=== PATIENT | female | born 1940 | race Caucasian/White ===

== ENCOUNTER 2016-11-16 17:48 | Emergency (ER) | payer OTHER ==
[~2016-11-16 17:48] MED LIST: ACETAMINOPHEN500 MG PO; ALDACTONE25 MG PO; AMITIZA8 MCG PO; CARAFATE EQUIVAL1 GM PO; CEPHALEXIN500 MG PO; COMBIVENT RESPIMAT; COUMADIN5 MG PO; DIGOXIN0.125 MG PO; FLOMAX0.4 MG PO; GLIMEPIRIDE1 MG PO; GLIMEPIRIDE4 MG PO; LIDODERM5 % TOP; LIPITOR80 MG PO; LISINOPRIL10 MG PO; LOPRESSOR50 MG PO; LOSARTAN POTASS50 MG PO; LOVENOX60 MG/0.6 SC; LOVENOX80 MG/0.8 SC; METFORMIN HCL500 MG PO; METHYLPHENIDATE5 MG PO; METOCLOPRAMIDE10 MG PO; MIRALAX EQUIVAL17 GM PO; NEURONTIN300 MG PO; OMEPRAZOLE20 M1 PO; OXYCONTIN CR10 MG PO; PAROXETINE HCL10 MG PO; REQUIP0.25 MG PO; SEREVENT DISKU50 MCG; SMZ-TMP DS1 TAB PO; TORSEMIDE10 MG PO; TRAMADOL HCL50 MG PO; TRAZODONE HCL100 MG PO; TRAZODONE HCL50 MG PO; TYLENOL650 MG PO; WARFARIN SODIUM5 MG PO
--- NOTE | 2016-11-16 20:08 | ED ORDER SUMMARY ---
..... Patient: TRAVON VIDAL OrderSheet [facility] VisitID: [id number] [address] [place] [address] 76y, F Registration Date/Time: 11/16/2016 ORDER SHEET Weight: 102.0 kg (stated) Allergies: Doxycycline, Cordran, Amiodarone, Cordarone, GENERAL ORDERS: CBC w Diff Urgent (18:24 11/16/2016 Mary GUERRERO) (Ack 18:36 Vaelncia) (19:02 KPage-Kuchan R.N.) CMP Urgent (18:11/16/2016 Mary GUERRERO) (Ack 18:36 Valencia) (19:02 KPage-Kujuan cn R.N.) UA-Culture if indicated Urgent (18:11/16/2016 Mary GUERRERO) (Ack 18:36 Valencia) (19:02 KPage-Kuchan R.N.) Amylase Urgent (18:11/16/2016 Mary GUERRERO) (Ack 18:36 Valencia) (19:02 KPage-Kuchan R.N.) Lipase Urgent (18:24 11/16/2016 Mary GUERRERO) (Ack 18:36 Valencia) (19:02 KPage-Kuchan R.N.) PT with INR Urgent (20:07 11/16/2016 Mary GUERRERO) (20:09 AMcQuoid ER Tech1) PTT Urgent (20:07 11/16/2016 Mary GUERRERO) (20:09 AMcQuoid ER Tech1) Ly Catheter (20:07 11/16/2016 Mary GUERRERO) (20:15 SRoberts R.N.) MEDICATION ORDERS: Levaquin PO 500 mg (NOW) (20:45 11/16/2016 Mary GUERRERO) (Ack 20:56 SRoberts R.N.) (21:30 SRoberts R.N.) IV FLUIDS: IV Saline Lock (18:24 11/16/2016 Mary GUERRERO) (19:03 KPage-Zaidn R.N.) Dilaudid IV 0.5 mg (HIGH ALERT MEDICATION, NOW) (20:06 11/16/2016 Mary GUERRERO) ([facility] 20:08 Catherine RDionisio) (20:15 Catherine Sainz) ORDER SHEET NOTES: [Electronically signed by Darline Prado R.N. (:31 11/16/2016)] [Electronically signed by Jose Penny MD (09:46 11/17/2016)] [Electronically locked/signed by Darline Prado R.N. (:11/16/2016)]
--- NOTE | 2016-11-16 20:08 | ED CLINICAL REPORT ---
Clinical Report - Physicians/Mid Levels [facility] [address] [place] [address] 11/16/2016 17:48 Patient: TRAVON VIDAL Time Seen: 18:24. Arrived- By private vehicle. Historian- patient. HISTORY OF PRESENT ILLNESS Chief Complaint: ABDOMINAL PAIN. At its maximum, severity described as 9 / 10. When seen in the E.D., severity described as 6 / 10. Modifying factors- (worsened by standing). This started for about 10 days and is still present and now worse. It was gradual in onset and has been intermittent and waxing/waning. It is described as cramping. No radiation. It is described as located in the suprapubic area. No nausea or vomiting. She has had loose stools (for about 10 days). It has been similar to previous symptoms. No bloody or blood-tinged diarrhea. REVIEW OF SYSTEMS No chills, fever, muscle aches, sweats or calf pain. No chest pain, cough, difficulty breathing, pedal edema or palpitations. No black stools, bloody stools, constipation, diarrhea or nausea. No vomiting. All systems otherwise negative, except as recorded above. PAST HISTORY PCP - Herb. Problems: Dehydration. Hyponatremia. Leukocytosis. Oral Anticoagulation Therapy. Chest Pain. Abnormal EKG. COPD - Chronic Obstructive Pulmonary Disease. Lung Disease. Heart Disease. GI Disease. Nephropathy. Cystitis. Ly Catheter Replacement. Fecal Impaction. Vomiting. Hypomagnesemia. Constipation. Hyperkalemia. Hematuria. Emphysema. Cancer. Abdominal Pain. UTI - Urinary Tract Infection. Atrial Fibrillation. Sleep Apnea. Diabetes Mellitus. Hypertension. Urinary Retention. Aortic Stenosis. Additional Surgeries: Aortofemoral Bypass. Appendectomy. Bladder Suspension. Previous Abdominal Surgery. Valve Replacement. Medications: Lipitor Oral (Tablet 80 mg) 1 tablet, daily. Losartan Potassium Oral (Tablet 100 mg) 1/2 tablet, 2x a day. Lovenox Subcutaneous (Solution 80 mg/0.8mL), 2x a day. MetFORMIN HCl Oral (Tablet 1000 mg) 1 tablet, 2x a day. Methylphenidate HCl ER (LA) Oral (Capsule Extended Release 24 Hour 10 mg) 1 capsule, daily. Metoprolol Tartrate Oral (Tablet 50 mg) 1/2 tablet, bid. MiraLax Oral 1 packet, daily. Omeprazole Oral (Tablet Delayed Release 20 mg) 1 tablet, 2x a day. PARoxetine HCl Oral (Tablet 20 mg) 1 tablet, daily. Requip Oral (Tablet 0.25 mg) 1-2 tablets, hs. Serevent Diskus Inhalation 1 puff, 2x a day. Spironolactone Oral (Tablet 25 mg) 1 tablet, daily. Torsemide Oral (Tablet 5 mg) 1 tablet, daily. Tramadol HCL Oral (Tablet 50 mg) 1-1/2 tablets, 3x a day. TraZODone HCl Oral (Tablet 150 mg) 1/2 tablet, at bedtime. Tylenol Arthritis Pain Oral (Tablet Extended Release 650 mg) 3 tablets , bid. Warfarin Sodium Oral (Tablet 1 mg) 4 tablets (4 mg 2 days a week 5 mg 5 days a week). Amitiza Oral (Capsule 8 mcg) 1 capsule, bid. [id number] Oral (Tablet Chewable 1 mg) 1/2 tablet, daily. Combivent Respimat Inhalation (Aerosol Solution 20-100 mcg/act) 1 puff, bid. Digoxin Oral (Tablet 125 mcg) 1 tablet, daily. Flomax Oral (Capsule 0.4 mg) 1 capsule, daily. Fluconazole Oral (Tablet 150 mg) 1 tablet, daily. Glimepiride Oral (Tablet 4 mg) 1/2 tablet, daily. Allergies: Amiodarone. Cordarone. Cordran. Doxycycline. SOCIAL HISTORY Former smoker, end date 1990. No alcohol use or drug use. Residence: [place] she lives with spouse. FAMILY HISTORY Heart disease in first-degree relative (mother and sibling). father with Parkinson's. ADDITIONAL NOTES The nursing notes have been reviewed. PHYSICAL EXAM Vital Signs: 11/16/2016 18:22 BP: 107/66. HR: 71. RR: 24. O2 saturation: 92%. Temp: 99.1 F. Pain level now: 6/10. Have been reviewed. Appearance: Alert. Eyes: Pupils equal, round and reactive to light. ENT: Pharynx normal. Neck: Normal inspection. Neck supple. CVS: Normal heart rate and rhythm. Heart sounds normal. Respiratory: No respiratory distress. Breath sounds normal. Abdomen: Soft. Moderate tenderness in the suprapubic area. Bowel sounds normal. No organomegaly. No mass. Back: Normal inspection. No CVA tenderness. Skin: Skin warm and dry. Normal skin color. Normal skin turgor. Extremities: Extremities exhibit normal ROM. No calf tenderness. No lower extremity edema. LABS, X-RAYS, AND EKG Laboratory Tests: UA-Culture if indicated: (ADDI: 11/16/2016 19:45) ( [facility] 11/16/2016 20:05) Final results Test Result Flag Units (Reference) URINE COLOR YELLOW URINE APPEARANCE CLOUDY URINE GLUCOSE NEGATIVE (NEGATIVE) URINE BILIRUBIN NEGATIVE (NEGATIVE) URINE KETONE NEGATIVE (NEGATIVE) URINE SPECIFIC GRAVITY 1.020 (1.010-1.030) URINE PH 6.0 (5.0-8.0) URINE PROTEIN 2+ (NEGATIVE) URINE UROBILINOGEN 1.0 EU/dL (0.2-1.0) URINE NITRITE POSITIVE (NEGATIVE) URINE BLOOD 2+ (NEGATIVE) URINE LEUK ESTERASE POSITIVE (NEGATIVE) URINE RBC 1-3 rbc/hpf (0-1) URINE WBC >100 wbc/hpf (0-1) URINE EPITHELIAL CELLS 0-1 EPI/hpf (0-5) URINE BACTERIA FEW (1+) (NONE SEEN) URINE COMMENT CULTURE INDICATED URINE CULTURES ARE SET-UP BASED ON THE FOLLOWING CRITERIA:POSITIVE NITRITEPOSITIVE LEUKOCYTE ESTERASEGREATER THAN 10 WHITE BLOOD CELLSMODERATE (2+) OR GREATER BACTERIA CBC w Diff: (ADDI: 11/16/2016 18:52) ( [facility] 11/16/2016 19:42) Final results Test Result Flag Units (Reference) WHITE BLOOD COUNT 12.6 H K/uL (4.5-11.5) RED BLOOD COUNT 4.42 M/uL (4.00-5.20) HEMOGLOBIN 11.4 L gm/dL (12.0-16.0) HEMATOCRIT 35.5 L % (36.0-46.0) MEAN CELL VOLUME 80 fL (80-100) MEAN CORPUSCULAR HGB 26 pg (26-34) MEAN CORPUSCULAR HGB CONC 32 g/dL (31-37) RED CELL DISTRIBUTION WIDTH 20.2 H % (11.6-14.8) PLATELET COUNT 365 K/uL (150-400) NEUTROPHIL % 76.9 H % (50-75) LYMPH % 15.5 L % (25-40) MONO % 6.8 % (3-14) EOSINOPHIL % 0.6 % (0-4) BASOPHIL % 0.2 % (0-2) RBC MORPHOLOGY 2+ ANISOCYTOSIS PT with INR: (ADDI: 11/16/2016 18:52) ( [facility] 11/16/2016 20:45) Final results Test Result Flag Units (Reference) INR 2.9 H (0.8-1.2) Low Intensity Therapy: INR 1.5-2.0 PT range 18.5-23.1Mod.Intensity Therapy: INR 2.0-3.0 PT range 23.1-31.5High Intensity Therapy: INR 2.5-3.5 PT range 27.4-35.5High Intensity Therapy 2: INR 3.0-4.0 PT range 31.5-39.3 APTT 47 H SECONDS (24-34) CMP: (ADDI: 11/16/2016 18:52) ( [facility] 11/16/2016 19:28) Final results Test Result Flag Units (Reference) GLUCOSE 181 H mg/dL (70-110) BUN 17 mg/dL (7-18) CREATININE 1.1 mg/dL (0.6-1.3) Estimated GFR 51.60 mL/min Estimated GFR- >60 mL/min Note: Persistent reduction over 3 months in eGFR<60 mL/min/1.73 m2 defines CKD. Patients with eGFR values>=60 mL/min/1.73 m2 may also have CKD if evidence ofpersistent proteinuria. Additional information may be foundat www.kidney.org. SODIUM 136 mmol/L (136-145) POTASSIUM 4.5 mmol/L (3.5-5.1) CHLORIDE 100 mmol/L (98-107) CARBON DIOXIDE 26 mmol/L (21-32) CALCIUM 8.4 L mg/dL (8.5-10.1) TOTAL PROTEIN 7.2 g/dL (6.4-8.2) ALBUMIN 3.0 L g/dL (3.3-5.0) BILIRUBIN, TOTAL 0.9 mg/dL (0.0-1.0) ALKALINE PHOSPHATASE 151 H U/L (46-116) AST (SGOT) 27 U/L (15-37) ALT (SGPT) 30 U/L (12-78) LIPASE 177 U/L (73-393) AMYLASE 51 U/L (25-115) . PROGRESS AND PROCEDURES Course of Care: Patient is stable. Discussed case with on-call health care provider, (Herb). Reviewed test results and need for additional work-up. Agreed upon treatment plan. Health care provider will see patient. Patient/family counseled. Old medical records reviewed. Disposition: Discharged. Condition: stable. CLINICAL IMPRESSION Urinary tract infection. Oral anticoagulation therapy with vermin exterminator use and therapeutic INR. Ly catheter replacement INSTRUCTIONS Drink plenty of fluids. Warnings: Further evaluation is necessary. GENERAL WARNINGS: Return or contact your physician immediately if your condition worsens or changes unexpectedly, if not improving as expected, or if other problems arise. Your Current Medications: CONTINUE TAKING THE FOLLOWING MEDICATIONS: Amitiza Oral : Capsule 8 mcg, 1 capsule bid. [id number] Oral : Tablet Chewable 1 mg, 1/2 tablet daily. Combivent Respimat Inhalation : Aerosol Solution 20-100 mcg/act, 1 puff bid. Digoxin Oral : Tablet 125 mcg, 1 tablet daily. Flomax Oral : Capsule 0.4 mg, 1 capsule daily. Fluconazole Oral : Tablet 150 mg, 1 tablet daily. Glimepiride Oral : Tablet 4 mg, 1/2 tablet daily. Lipitor Oral : Tablet 80 mg, 1 tablet daily. Losartan Potassium Oral : Tablet 100 mg, 1/2 tablet 2x a day. Lovenox Subcutaneous : Solution 80 mg/0.8mL, 2x a day. MetFORMIN HCl Oral : Tablet 1000 mg, 1 tablet 2x a day. Methylphenidate HCl ER (LA) Oral : Capsule Extended Release 24 Hour 10 mg, 1 capsule daily. Prescription Medications: Cipro 500 mg: take 1 tab orally every 12 hours for 10 days. Dispense twenty (20). No refills. Substitution is permissible. (18 pills to finish the course started in the emergency room) Understanding of the discharge instructions verbalized by patient and family. Follow-up with: Shalom Estevez MD, [facility], , [facility], [address] [place] [address] Follow up Friday in two days. Call for an appointment. Reason for referral: to have your INR checked - the antibiotic to chewable been started on will likely affect your Coumadin levels. (Electronically signed by Jose Penny MD 11/17/2016 9:46)
--- NOTE | 2016-11-16 20:08 | ED NURSING NOTES ---
Clinical Report - Nurses [facility] [address] [place] [address] 11/16/2016 17:48 Patient: TRAVON VIDAL TRIAGE Triage time 18:29 Nov 16 2016. Acuity: LEVEL 2. Chief Complaint: ABDOMINAL PAIN and FEVER (loose stools x 1 week with supra pubic abd pain). SEPSIS SCREEN: Sepsis Screen: negative. Infection suspected/documented. Respiratory rate greater than 20. --18:46 Jaret Alves R.N. 18:22 11/16/16. BP: 107/66. HR: 71. RR: 24. O2 saturation: 92% on room air. Temp: 99.1 F. Pain level now: 02/01. --18:46 Jaret Alves R.N. Weight: 102 kg stated. Height/Length: 66 inches Per Patient. BMI: 36.3. --18:44 Jaret Alves R.N. Medications Amitiza Oral (Capsule 8 mcg) 1 capsule, bid. [id number] Oral (Tablet Chewable 1 mg) 1/2 tablet, daily. Combivent Respimat Inhalation (Aerosol Solution 20-100 mcg/act) 1 puff, bid. Digoxin Oral (Tablet 125 mcg) 1 tablet, daily. Flomax Oral (Capsule 0.4 mg) 1 capsule, daily. Fluconazole Oral (Tablet 150 mg) 1 tablet, daily. Glimepiride Oral (Tablet 4 mg) 1/2 tablet, daily. --19:23 Darline Prado R.N. Lipitor Oral (Tablet 80 mg) 1 tablet, daily. Losartan Potassium Oral (Tablet 100 mg) 1/2 tablet, 2x a day. Lovenox Subcutaneous (Solution 80 mg/0.8mL), 2x a day. MetFORMIN HCl Oral (Tablet 1000 mg) 1 tablet, 2x a day. Methylphenidate HCl ER (LA) Oral (Capsule Extended Release 24 Hour 10 mg) 1 capsule, daily. Metoprolol Tartrate Oral (Tablet 50 mg) 1/2 tablet, bid. MiraLax Oral 1 packet, daily. Omeprazole Oral (Tablet Delayed Release 20 mg) 1 tablet, 2x a day. PARoxetine HCl Oral (Tablet 20 mg) 1 tablet, daily. Requip Oral (Tablet 0.25 mg) 1-2 tablets, hs. Serevent Diskus Inhalation 1 puff, 2x a day. Spironolactone Oral (Tablet 25 mg) 1 tablet, daily. Torsemide Oral (Tablet 5 mg) 1 tablet, daily. Tramadol HCL Oral (Tablet 50 mg) 1-1/2 tablets, 3x a day. TraZODone HCl Oral (Tablet 150 mg) 1/2 tablet, at bedtime. Tylenol Arthritis Pain Oral (Tablet Extended Release 650 mg) 3 tablets , bid. Warfarin Sodium Oral (Tablet 1 mg) 4 tablets (4 mg 2 days a week 5 mg 5 days a week). --19:23 Darline Prado R.N. Allergies Amiodarone. --18:36 Jaret Alves R.N. Doxycycline. --18:36 Jaret Alves R.N. Cordran. --18:37 Jaret Alves R.N. Amiodarone. Cordarone. Doxycycline. --19:23 Darline Prado R.N. History Arrived by private vehicle. Historian: patient and family. Accompanied by family and spouse. This is a recurrent problem and onset was gradual. Does not recall events relating to the onset. Worsened while participating in light activity. Symptoms are constant (1 weeks). Relates location as in the suprapubic area. Notes pain level as 6/10 on arrival. The patient has had diarrhea. Last oral intake by patient was today 1 hour ago. Treatment MOTORCYCLE FABRICATOR: None. Symptoms improved after treatment. (hydrocodone at 1400 today). PAST MEDICAL HX: Immunizations: up-to-date. The patient is post-menopausal. SOCIAL HX: Former smoker, end date 1990. No alcohol use or drug use. No recent travel. No infectious disease exposure. No known contact with a sick individual. ABUSE ASSESSMENT: No report of abuse. SELF HARM ASSESSMENT: A self harm assessment was performed. The patient answered "no" to the question "Have you recently felt down, depressed, or hopeless?", "Have you noticed less interest or pleasure in doing things?", "Do you have thoughts of harming or killing yourself?", "Are you here because you tried to hurt yourself?", "Have you ever tried to hurt yourself before today?", "Have you recently had thoughts about harming or killing others?" and "Do you have any dangerous items in your possession?". NUTRITIONAL RISK ASSESSMENT: The nutritional risk assessment revealed no deficiencies. FUNCTIONAL ASSESSMENT: Functional assessment: no impairments noted. LEARNING NEEDS ASSESSMENT: The learning needs assessment revealed no barriers. FALL RISK ASSESSMENT: Fall risk assessment completed. Risk factors identified include severe pain and patient medications, age greater than 65 years and impairment of mobility. Fall interventions initiated. Patient placed on stretcher. Side rails up x2. Brakes on Bed in low position. Patient visible from nurses' station and identified as a fall risk by ID band. Family at bedside. Call light in reach of patient and family. Instructed not to get up without assistance. SKIN INTEGRITY ASSESSMENT: Skin integrity risk assessment completed. No skin integrity risk identified. --18:46 Jaret Alves R.N. PROBLEMS: Dehydration. Hyponatremia. Leukocytosis. Oral Anticoagulation Therapy. Chest Pain. Abnormal EKG. COPD - Chronic Obstructive Pulmonary Disease. Lung Disease. Heart Disease. GI Disease. Nephropathy. Cystitis. Mars Catheter Replacement. Fecal Impaction. Vomiting. LNMP - Last Normal Menstrual Period. Hypomagnesemia. Constipation. Hyperkalemia. Hematuria. Cancer. Abdominal Pain. UTI - Urinary Tract Infection. Atrial Fibrillation. Sleep Apnea. Diabetes Mellitus. Hypertension. Immunizations. Urinary Retention. Aortic Stenosis. --18:38 Jaret Alves R.N. Bowel Obstruction [RuleOut]. --18:38 Jaret Alves R.N. Emphysema. --19:24 Darline Prado R.N. Interventions ID and allergy band on patient. ID and allergy band checked. ABDOMINAL PAIN protocol initiated at triage. To treatment room. --18:46 Jaret Alves R.N. PHYSICAL ASSESSMENT GENERAL / NEURO / PSYCH: Alert. Oriented X 4. Appears in pain, anxious and in distress. HEENT: Mucous membranes are pink. RESPIRATORY: Mild respiratory distress. GI / : The patient has loose stools. This has occurred several times. It has been watery and has been associated with cramps. Abdominal tenderness. Stool color is abnormal (light brown). ( pt presents with indwelling mars- yesterday spouse reports blood in urine, today mucous). SKIN: Skin is warm and dry. --18:49 Jaret Alves R.N. NURSING PROGRESS NOTES 18:53 11/16/2016 Site #1 started via IV in the right forearm with an 20g angiocath; one attempt. Blood drawn: rainbow set. Labeled in the presence of the patient and sent to the lab. Saline lock flushed. --19:03 Jaret Alves R.N. 19:04 11/16/16. BP: 128/89. HR: 67. RR: 21. O2 saturation: 94%. --19:05 Jaret Alves R.N. fiberglass finisher, pulse oximeter and NIBP monitor placed on patient; monitor alarms on. Patient gowned. Head of bed elevated. Reassurance given. Two patient identifiers checked. Call light placed in reach. Side rails up x 2. Bed placed in lowest position. Brakes of bed on. Patient waiting for evaluation and lab results. --19:05 Jaret Alves R.N. Patient ready for evaluation- chart flagged. --19:05 Jaret Alves R.N. 19:30. Patient ID band checked urine collected with return of yellow-colored cloudy urine; sample sent to lab for urinalysis and culture. Specimen labeled in the presence of the patient (Pulled from). --20:02 Darline Prado R.N. 20:15 11/16/2016 Dilaudid (HYDROmorphone HCl PF) IVP 0.5 mg given over 1 minute(s) via site #1. Allergies verified, confirmed 5 rights and sedative warning given to the patient. IV patency established. IV site checked: no pain, redness, or swelling. IV flushed thoroughly pre- and post-medication administration. IVP given by RN. --20:15 Darline Prado R.N. 20:30. 14 fr mars catheter placed. Reason for indwelling catheter: retention. During procedure hand hygiene observed and sterile equipment and aseptic technique used. Return of 150 mL pk-colored cloudy urine; attached to bedside drainage bag positioned below the bladder and secured with stabilization device. It was a complicated placement. She tolerated procedure well (Old cath removed per md order. Replaced with new cath). --20:41 Darline Prado R.N. 20:31 11/16/16. BP: 144/89. HR: 70. RR: 18. O2 saturation: 95% on room air. --20:42 Darline Prado R.N. 21:10 11/16/2016 Levaquin (Levofloxacin) PO 500 mg given. Allergies verified and confirmed 5 rights. --21:30 Darline Prado R.N. 21:30 11/16/2016 Site #1 removed upon discharge. Catheter intact. Bandaid applied. --21:31 Darline Prado R.N. DISPOSITION / DISCHARGE Condition at departure: improved. No learning barriers present. Discharge instructions provided and reviewed with the patient and spouse. Reviewed medication(s) side effects, precautions, dosing and course information. Prescription(s) given to the patient. Activity restrictions (rest) reviewed. Patient and spouse verbalized understanding. Written instructions provided in Tu[place]. The patient was discharged home and accompanied by spouse. She left the Emergency Department in a wheelchair and via private vehicle. Spouse driving. Medication list reviewed and validated. --21:30 Darline Prado R.N. 21:29 11/16/16. BP: 130/69. HR: 69. RR: 18. O2 saturation: 100%. Temp: deferred. Pain level now: 10/04. 20:31 11/16/16. BP: 144/89. HR: 70. RR: 18. O2 saturation: 95% on room air. 19:04 11/16/16. BP: 128/89. HR: 67. RR: 21. O2 saturation: 94%. 18:22 11/16/16. BP: 107/66. HR: 71. RR: 24. O2 saturation: 92% on room air. Temp: 99.1 F. Pain level now: 02/01. --21:30 Darline Prado R.N. Locked/Released at 11/16/2016 21:31 by Darline Prado R.N.
--- NOTE | 2016-11-16 20:08 | ED ORDER SUMMARY ---
..... Patient: TRAVON VIDAL OrderSheet [facility] VisitID: [id number] [address] [place] [address] 76y, F Registration Date/Time: 11/16/2016 ORDER SHEET Weight: 102.0 kg (stated) Allergies: Doxycycline, Cordran, Amiodarone, Cordarone, GENERAL ORDERS: CBC w Diff Urgent (18:24 11/16/2016 Mary GUERRERO) (Ack 18:36 Valencia) (19:02 KPage-Kuchan R.N.) CMP Urgent (18:11/16/2016 Mary GUERRERO) (Ack 18:36 Valencia) (19:02 KPage-Kujuan cn R.N.) UA-Culture if indicated Urgent (18:11/16/2016 Mary GUERRERO) (Ack 18:36 Valencia) (19:02 KPage-Kuchan R.N.) Amylase Urgent (18:11/16/2016 Mary GUERRERO) (Ack 18:36 Valencia) (19:02 KPage-Kuchan R.N.) Lipase Urgent (18:24 11/16/2016 Mary GUERRERO) (Ack 18:36 Valencia) (19:02 KPage-Kuchan R.N.) PT with INR Urgent (20:07 11/16/2016 Mayr GUERRERO) (20:09 AMcQuoid ER Tech1) PTT Urgent (20:07 11/16/2016 Mary GUERRERO) (20:09 AMcQuoid ER Tech1) Ly Catheter (20:07 11/16/2016 Mary GUERRERO) (20:15 SRoberts R.N.) MEDICATION ORDERS: Levaquin PO 500 mg (NOW) (20:45 11/16/2016 Mary GUERRERO) (Ack 20:56 SRoberts R.N.) (21:30 SRoberts R.N.) IV FLUIDS: IV Saline Lock (18:24 11/16/2016 Mary GUERRERO) (19:03 KPage-Ziadn R.N.) Dilaudid IV 0.5 mg (HIGH ALERT MEDICATION, NOW) (20:06 11/16/2016 Mary GUERRERO) ([facility] 20:08 Catherine RDionisio) (20:15 Catherine Sainz) ORDER SHEET NOTES: [Electronically signed by Darline Prado R.N. (:31 11/16/2016)] [Electronically signed by Jose Penny MD (09:46 11/17/2016)] [Electronically locked/signed by Darline Prado R.N. (:11/16/2016)]
--- NOTE | 2016-11-16 20:08 | ED CLINICAL REPORT ---
Clinical Report - Physicians/Mid Levels [facility] [address] [place] [address] 11/16/2016 17:48 Patient: TRAVON VIDAL Time Seen: 18:24. Arrived- By private vehicle. Historian- patient. HISTORY OF PRESENT ILLNESS Chief Complaint: ABDOMINAL PAIN. At its maximum, severity described as 9 / 10. When seen in the E.D., severity described as 6 / 10. Modifying factors- (worsened by standing). This started for about 10 days and is still present and now worse. It was gradual in onset and has been intermittent and waxing/waning. It is described as cramping. No radiation. It is described as located in the suprapubic area. No nausea or vomiting. She has had loose stools (for about 10 days). It has been similar to previous symptoms. No bloody or blood-tinged diarrhea. REVIEW OF SYSTEMS No chills, fever, muscle aches, sweats or calf pain. No chest pain, cough, difficulty breathing, pedal edema or palpitations. No black stools, bloody stools, constipation, diarrhea or nausea. No vomiting. All systems otherwise negative, except as recorded above. PAST HISTORY PCP - Herb. Problems: Dehydration. Hyponatremia. Leukocytosis. Oral Anticoagulation Therapy. Chest Pain. Abnormal EKG. COPD - Chronic Obstructive Pulmonary Disease. Lung Disease. Heart Disease. GI Disease. Nephropathy. Cystitis. Ly Catheter Replacement. Fecal Impaction. Vomiting. Hypomagnesemia. Constipation. Hyperkalemia. Hematuria. Emphysema. Cancer. Abdominal Pain. UTI - Urinary Tract Infection. Atrial Fibrillation. Sleep Apnea. Diabetes Mellitus. Hypertension. Urinary Retention. Aortic Stenosis. Additional Surgeries: Aortofemoral Bypass. Appendectomy. Bladder Suspension. Previous Abdominal Surgery. Valve Replacement. Medications: Lipitor Oral (Tablet 80 mg) 1 tablet, daily. Losartan Potassium Oral (Tablet 100 mg) 1/2 tablet, 2x a day. Lovenox Subcutaneous (Solution 80 mg/0.8mL), 2x a day. MetFORMIN HCl Oral (Tablet 1000 mg) 1 tablet, 2x a day. Methylphenidate HCl ER (LA) Oral (Capsule Extended Release 24 Hour 10 mg) 1 capsule, daily. Metoprolol Tartrate Oral (Tablet 50 mg) 1/2 tablet, bid. MiraLax Oral 1 packet, daily. Omeprazole Oral (Tablet Delayed Release 20 mg) 1 tablet, 2x a day. PARoxetine HCl Oral (Tablet 20 mg) 1 tablet, daily. Requip Oral (Tablet 0.25 mg) 1-2 tablets, hs. Serevent Diskus Inhalation 1 puff, 2x a day. Spironolactone Oral (Tablet 25 mg) 1 tablet, daily. Torsemide Oral (Tablet 5 mg) 1 tablet, daily. Tramadol HCL Oral (Tablet 50 mg) 1-1/2 tablets, 3x a day. TraZODone HCl Oral (Tablet 150 mg) 1/2 tablet, at bedtime. Tylenol Arthritis Pain Oral (Tablet Extended Release 650 mg) 3 tablets , bid. Warfarin Sodium Oral (Tablet 1 mg) 4 tablets (4 mg 2 days a week 5 mg 5 days a week). Amitiza Oral (Capsule 8 mcg) 1 capsule, bid. [id number] Oral (Tablet Chewable 1 mg) 1/2 tablet, daily. Combivent Respimat Inhalation (Aerosol Solution 20-100 mcg/act) 1 puff, bid. Digoxin Oral (Tablet 125 mcg) 1 tablet, daily. Flomax Oral (Capsule 0.4 mg) 1 capsule, daily. Fluconazole Oral (Tablet 150 mg) 1 tablet, daily. Glimepiride Oral (Tablet 4 mg) 1/2 tablet, daily. Allergies: Amiodarone. Cordarone. Cordran. Doxycycline. SOCIAL HISTORY Former smoker, end date 1990. No alcohol use or drug use. Residence: [place] she lives with spouse. FAMILY HISTORY Heart disease in first-degree relative (mother and sibling). father with Parkinson's. ADDITIONAL NOTES The nursing notes have been reviewed. PHYSICAL EXAM Vital Signs: 11/16/2016 18:22 BP: 107/66. HR: 71. RR: 24. O2 saturation: 92%. Temp: 99.1 F. Pain level now: 6/10. Have been reviewed. Appearance: Alert. Eyes: Pupils equal, round and reactive to light. ENT: Pharynx normal. Neck: Normal inspection. Neck supple. CVS: Normal heart rate and rhythm. Heart sounds normal. Respiratory: No respiratory distress. Breath sounds normal. Abdomen: Soft. Moderate tenderness in the suprapubic area. Bowel sounds normal. No organomegaly. No mass. Back: Normal inspection. No CVA tenderness. Skin: Skin warm and dry. Normal skin color. Normal skin turgor. Extremities: Extremities exhibit normal ROM. No calf tenderness. No lower extremity edema. LABS, X-RAYS, AND EKG Laboratory Tests: UA-Culture if indicated: (ADDI: 11/16/2016 19:45) ( [facility] 11/16/2016 20:05) Final results Test Result Flag Units (Reference) URINE COLOR YELLOW URINE APPEARANCE CLOUDY URINE GLUCOSE NEGATIVE (NEGATIVE) URINE BILIRUBIN NEGATIVE (NEGATIVE) URINE KETONE NEGATIVE (NEGATIVE) URINE SPECIFIC GRAVITY 1.020 (1.010-1.030) URINE PH 6.0 (5.0-8.0) URINE PROTEIN 2+ (NEGATIVE) URINE UROBILINOGEN 1.0 EU/dL (0.2-1.0) URINE NITRITE POSITIVE (NEGATIVE) URINE BLOOD 2+ (NEGATIVE) URINE LEUK ESTERASE POSITIVE (NEGATIVE) URINE RBC 1-3 rbc/hpf (0-1) URINE WBC >100 wbc/hpf (0-1) URINE EPITHELIAL CELLS 0-1 EPI/hpf (0-5) URINE BACTERIA FEW (1+) (NONE SEEN) URINE COMMENT CULTURE INDICATED URINE CULTURES ARE SET-UP BASED ON THE FOLLOWING CRITERIA:POSITIVE NITRITEPOSITIVE LEUKOCYTE ESTERASEGREATER THAN 10 WHITE BLOOD CELLSMODERATE (2+) OR GREATER BACTERIA CBC w Diff: (ADDI: 11/16/2016 18:52) ( [facility] 11/16/2016 19:42) Final results Test Result Flag Units (Reference) WHITE BLOOD COUNT 12.6 H K/uL (4.5-11.5) RED BLOOD COUNT 4.42 M/uL (4.00-5.20) HEMOGLOBIN 11.4 L gm/dL (12.0-16.0) HEMATOCRIT 35.5 L % (36.0-46.0) MEAN CELL VOLUME 80 fL (80-100) MEAN CORPUSCULAR HGB 26 pg (26-34) MEAN CORPUSCULAR HGB CONC 32 g/dL (31-37) RED CELL DISTRIBUTION WIDTH 20.2 H % (11.6-14.8) PLATELET COUNT 365 K/uL (150-400) NEUTROPHIL % 76.9 H % (50-75) LYMPH % 15.5 L % (25-40) MONO % 6.8 % (3-14) EOSINOPHIL % 0.6 % (0-4) BASOPHIL % 0.2 % (0-2) RBC MORPHOLOGY 2+ ANISOCYTOSIS PT with INR: (ADDI: 11/16/2016 18:52) ( [facility] 11/16/2016 20:45) Final results Test Result Flag Units (Reference) INR 2.9 H (0.8-1.2) Low Intensity Therapy: INR 1.5-2.0 PT range 18.5-23.1Mod.Intensity Therapy: INR 2.0-3.0 PT range 23.1-31.5High Intensity Therapy: INR 2.5-3.5 PT range 27.4-35.5High Intensity Therapy 2: INR 3.0-4.0 PT range 31.5-39.3 APTT 47 H SECONDS (24-34) CMP: (ADDI: 11/16/2016 18:52) ( [facility] 11/16/2016 19:28) Final results Test Result Flag Units (Reference) GLUCOSE 181 H mg/dL (70-110) BUN 17 mg/dL (7-18) CREATININE 1.1 mg/dL (0.6-1.3) Estimated GFR 51.60 mL/min Estimated GFR- >60 mL/min Note: Persistent reduction over 3 months in eGFR<60 mL/min/1.73 m2 defines CKD. Patients with eGFR values>=60 mL/min/1.73 m2 may also have CKD if evidence ofpersistent proteinuria. Additional information may be foundat www.kidney.org. SODIUM 136 mmol/L (136-145) POTASSIUM 4.5 mmol/L (3.5-5.1) CHLORIDE 100 mmol/L (98-107) CARBON DIOXIDE 26 mmol/L (21-32) CALCIUM 8.4 L mg/dL (8.5-10.1) TOTAL PROTEIN 7.2 g/dL (6.4-8.2) ALBUMIN 3.0 L g/dL (3.3-5.0) BILIRUBIN, TOTAL 0.9 mg/dL (0.0-1.0) ALKALINE PHOSPHATASE 151 H U/L (46-116) AST (SGOT) 27 U/L (15-37) ALT (SGPT) 30 U/L (12-78) LIPASE 177 U/L (73-393) AMYLASE 51 U/L (25-115) . PROGRESS AND PROCEDURES Course of Care: Patient is stable. Discussed case with on-call health care provider, (Herb). Reviewed test results and need for additional work-up. Agreed upon treatment plan. Health care provider will see patient. Patient/family counseled. Old medical records reviewed. Disposition: Discharged. Condition: stable. CLINICAL IMPRESSION Urinary tract infection. Oral anticoagulation therapy with intermodal dispatcher use and therapeutic INR. Ly catheter replacement INSTRUCTIONS Drink plenty of fluids. Warnings: Further evaluation is necessary. GENERAL WARNINGS: Return or contact your physician immediately if your condition worsens or changes unexpectedly, if not improving as expected, or if other problems arise. Your Current Medications: CONTINUE TAKING THE FOLLOWING MEDICATIONS: Amitiza Oral : Capsule 8 mcg, 1 capsule bid. [id number] Oral : Tablet Chewable 1 mg, 1/2 tablet daily. Combivent Respimat Inhalation : Aerosol Solution 20-100 mcg/act, 1 puff bid. Digoxin Oral : Tablet 125 mcg, 1 tablet daily. Flomax Oral : Capsule 0.4 mg, 1 capsule daily. Fluconazole Oral : Tablet 150 mg, 1 tablet daily. Glimepiride Oral : Tablet 4 mg, 1/2 tablet daily. Lipitor Oral : Tablet 80 mg, 1 tablet daily. Losartan Potassium Oral : Tablet 100 mg, 1/2 tablet 2x a day. Lovenox Subcutaneous : Solution 80 mg/0.8mL, 2x a day. MetFORMIN HCl Oral : Tablet 1000 mg, 1 tablet 2x a day. Methylphenidate HCl ER (LA) Oral : Capsule Extended Release 24 Hour 10 mg, 1 capsule daily. Prescription Medications: Cipro 500 mg: take 1 tab orally every 12 hours for 10 days. Dispense twenty (20). No refills. Substitution is permissible. (18 pills to finish the course started in the emergency room) Understanding of the discharge instructions verbalized by patient and family. Follow-up with: Shalom Estevez MD, [facility], , [facility], [address] [place] [address] Follow up Friday in two days. Call for an appointment. Reason for referral: to have your INR checked - the antibiotic to chewable been started on will likely affect your Coumadin levels. (Electronically signed by Jose Penny MD 11/17/2016 9:46)
--- NOTE | 2016-11-17 09:47 | ED MAR SUMMARY ---
..... Medication Administration Record [facility] [address] [place] [address] Patient: TRAVON VIDAL Visit ID: [id number] 76y, F Weight: 102.0 kg Height/Length: 66 in BMI: 36.3 ALLERGIES: Cordran, Doxycycline, Amiodarone, Cordarone Given 20:15 11/16/2016 Darline Prado R.N. Medication Administered: DILAUDID [IVP] (HYDROMORPHONE HCL PF), Dose: 0.5 mg IVP over 1 minute(s), Site: #1 right forearm. Medication Ordered: Dilaudid IV 0.5 mg (HIGH ALERT MEDICATION, NOW). Given 21:10 11/16/2016 Darline Prado R.N. Medication Administered: LEVAQUIN [PO] (LEVOFLOXACIN), Dose: 500 mg PO. Medication Ordered: Levaquin PO 500 mg (NOW).
--- NOTE | 2016-11-17 09:47 | ED MED RECONCILIATION SUMMARY ---
Patient: TRAVON VIDAL Medication Reconciliation Report [facility] VisitID: [id number] [address] [place] [address] 76y, F Registration Date/Time: 11/16/2016 Weight: 102.0 kg Height/Length: 66 in. BMI: 36.3 ALLERGIES: Amiodarone, Cordarone, Cordran, Doxycycline The patient's Home Medications are listed below: CONTINUE TAKING THE FOLLOWING MEDICATIONS: Amitiza Oral (8 mcg) 1 capsule, bid [id number] Oral (1 mg) 1/2 tablet, daily Combivent Respimat Inhalation (20-100 mcg/act) 1 puff, bid Digoxin Oral (125 mcg) 1 tablet, daily Flomax Oral (0.4 mg) 1 capsule, daily Fluconazole Oral (150 mg) 1 tablet, daily Glimepiride Oral (4 mg) 1/2 tablet, daily Lipitor Oral (80 mg) 1 tablet, daily Losartan Potassium Oral (100 mg) 1/2 tablet, 2x a day Lovenox Subcutaneous (80 mg/0.8mL), 2x a day MetFORMIN HCl Oral (1000 mg) 1 tablet, 2x a day Methylphenidate HCl ER (LA) Oral (10 mg) 1 capsule, daily THE FOLLOWING MEDICATIONS NEED TO BE RECONCILED: Metoprolol Tartrate Oral (50 mg) 1/2 tablet, bid MiraLax Oral 1 packet, daily Omeprazole Oral (20 mg) 1 tablet, 2x a day PARoxetine HCl Oral (20 mg) 1 tablet, daily Requip Oral (0.25 mg) 1-2 tablets, hs Serevent Diskus Inhalation 1 puff, 2x a day Spironolactone Oral (25 mg) 1 tablet, daily Torsemide Oral (5 mg) 1 tablet, daily Tramadol HCL Oral (50 mg) 1-1/2 tablets, 3x a day TraZODone HCl Oral (150 mg) 1/2 tablet, at bedtime Tylenol Arthritis Pain Oral (650 mg) 3 tablets , bid Warfarin Sodium Oral (1 mg) 4 tablets, 4 mg 2 days a week5 mg 5 days a week The source(s) of the original Home Medication information: Not obtained. The following Medications were given to the patient in the Emergency Department: Dilaudid [IVP] IVP 0.5 mg, administered: 11/16/2016 8:15:00 PM Levaquin [PO] PO 500 mg, administered: 11/16/2016 9:10:00 PM The following Medications were prescribed to the patient: Cipro 500 mg: take 1 tab orally every 12 hours for 10 days. Dispense twenty (20). No refills. Substitution is permissible.(18 pills to finish the course started in the emergency room) -- Jose Penny MD
--- NOTE | 2016-11-17 09:47 | ED MED RECONCILIATION SUMMARY ---
Patient: TRAVON VIDAL Medication Reconciliation Report [facility] VisitID: [id number] [address] [place] [address] 76y, F Registration Date/Time: 11/16/2016 Weight: 102.0 kg Height/Length: 66 in. BMI: 36.3 ALLERGIES: Amiodarone, Cordarone, Cordran, Doxycycline The patient's Home Medications are listed below: CONTINUE TAKING THE FOLLOWING MEDICATIONS: Amitiza Oral (8 mcg) 1 capsule, bid [id number] Oral (1 mg) 1/2 tablet, daily Combivent Respimat Inhalation (20-100 mcg/act) 1 puff, bid Digoxin Oral (125 mcg) 1 tablet, daily Flomax Oral (0.4 mg) 1 capsule, daily Fluconazole Oral (150 mg) 1 tablet, daily Glimepiride Oral (4 mg) 1/2 tablet, daily Lipitor Oral (80 mg) 1 tablet, daily Losartan Potassium Oral (100 mg) 1/2 tablet, 2x a day Lovenox Subcutaneous (80 mg/0.8mL), 2x a day MetFORMIN HCl Oral (1000 mg) 1 tablet, 2x a day Methylphenidate HCl ER (LA) Oral (10 mg) 1 capsule, daily THE FOLLOWING MEDICATIONS NEED TO BE RECONCILED: Metoprolol Tartrate Oral (50 mg) 1/2 tablet, bid MiraLax Oral 1 packet, daily Omeprazole Oral (20 mg) 1 tablet, 2x a day PARoxetine HCl Oral (20 mg) 1 tablet, daily Requip Oral (0.25 mg) 1-2 tablets, hs Serevent Diskus Inhalation 1 puff, 2x a day Spironolactone Oral (25 mg) 1 tablet, daily Torsemide Oral (5 mg) 1 tablet, daily Tramadol HCL Oral (50 mg) 1-1/2 tablets, 3x a day TraZODone HCl Oral (150 mg) 1/2 tablet, at bedtime Tylenol Arthritis Pain Oral (650 mg) 3 tablets , bid Warfarin Sodium Oral (1 mg) 4 tablets, 4 mg 2 days a week5 mg 5 days a week The source(s) of the original Home Medication information: Not obtained. The following Medications were given to the patient in the Emergency Department: Dilaudid [IVP] IVP 0.5 mg, administered: 11/16/2016 8:15:00 PM Levaquin [PO] PO 500 mg, administered: 11/16/2016 9:10:00 PM The following Medications were prescribed to the patient: Cipro 500 mg: take 1 tab orally every 12 hours for 10 days. Dispense twenty (20). No refills. Substitution is permissible.(18 pills to finish the course started in the emergency room) -- Jose Penny MD
--- NOTE | 2016-11-17 09:47 | ED DISCHARGE INSTRUCTIONS ---
Patient: TRAVON VIDAL General Instructions [facility] VisitID: [id number] [address] [place] [address] 76y, F Registration Date/Time: 11/16/2016 Urinary tract infection. Oral anticoagulation therapy with longterm use and therapeutic INR. Ly catheter replacement INSTRUCTIONS Drink plenty of fluids. Warnings: Further evaluation is necessary. GENERAL WARNINGS: Return or contact your physician immediately if your condition worsens or changes unexpectedly, if not improving as expected, or if other problems arise. Your Current Medications: CONTINUE TAKING THE FOLLOWING MEDICATIONS: Amitiza Oral : Capsule 8 mcg, 1 capsule bid. [id number] Oral : Tablet Chewable 1 mg, 1/2 tablet daily. Combivent Respimat Inhalation : Aerosol Solution 20-100 mcg/act, 1 puff bid. Digoxin Oral : Tablet 125 mcg, 1 tablet daily. Flomax Oral : Capsule 0.4 mg, 1 capsule daily. Fluconazole Oral : Tablet 150 mg, 1 tablet daily. Glimepiride Oral : Tablet 4 mg, 1/2 tablet daily. Lipitor Oral : Tablet 80 mg, 1 tablet daily. Losartan Potassium Oral : Tablet 100 mg, 1/2 tablet 2x a day. Lovenox Subcutaneous : Solution 80 mg/0.8mL, 2x a day. MetFORMIN HCl Oral : Tablet 1000 mg, 1 tablet 2x a day. Methylphenidate HCl ER (LA) Oral : Capsule Extended Release 24 Hour 10 mg, 1 capsule daily. Prescription Medications: Cipro 500 mg: take 1 tab orally every 12 hours for 10 days. Dispense twenty (20). No refills. Substitution is permissible. (18 pills to finish the course started in the emergency room) Understanding of the discharge instructions verbalized by patient and family. Follow-up with: Shalom Estevez MD, [facility], , [facility], [address] [place] [address] Follow up Friday in two days. Call for an appointment. Reason for referral: to have your INR checked - the antibiotic to chewable been started on will likely affect your Coumadin levels. ADDITIONAL INFORMATION Bladder Infection,Female (Adult) A bladder infection ("cystitis" or "UTI") usually causes a constant urge to urinate and a burning when passing urine. Urine may be cloudy, smelly or dark. There may be pain in the lower abdomen. A bladder infection occurs when bacteria from the vaginal area enter the bladder opening (urethra). This can occur from sexual intercourse, wearing tight clothing, dehydration and other factors. Home Care: Drink lots of fluids (at least 6-8 glasses a day, unless you must restrict fluids for other medical reasons). This will force the medicine into your urinary system and flush the bacteria out of your body. Avoid sexual intercourse until your symptoms are gone. Avoid caffeine, alcohol and spicy foods. These can irritate the bladder. A bladder infection is treated with antibiotics. You may also be given Pyridium (generic = phenazopyridine) to reduce the burning sensation. This medicine will cause your urine to become a bright orange color. The orange urine may stain clothing. You may wear a pad or panty-liner to protect clothing. Preventing Future Infections: Always wipe from front to back after a bowel movement. Keep the genital area clean and dry. Drink plenty of fluids each day to avoid dehydration. Both sexual partners should wash before intercourse. Urinate right after intercourse to flush out the bladder. Wear cotton underwear and cotton-lined panty hose; avoid tight-fitting pants. If you are on control pills and are having frequent bladder infections, discuss with your doctor. Follow Up: Return to this facility or see your doctor if ALL symptoms are not gone after three days of treatment. Get Prompt Medical Attention if any of the following occur: Fever of 100.4F (38C) or higher, or as directed by your healthcare provider No improvement by the third day of treatment Increasing back or abdominal pain Repeated vomiting; unable to keep medicine down Weakness, dizziness or fainting Vaginal discharge Pain, redness or swelling in the labia (outer vaginal area) Ly Catheter Care A Ly catheter is a rubber tube that is placed through the urethra (opening where urine comes out) and into the bladder. This helps drain urine from the bladder. There is a small balloon on the end of the tube that is inflated after insertion. This keeps the catheter from sliding out of the bladder. A Ly catheter is used to treat urinary retention (unable to pass urine). It is also used when there is incontinence (loss of bladder control). Home Care: Finish taking any prescribed antibiotic even if you are feeling better before then. It is important to keep bacteria from getting into the collection bag. Do not disconnect the catheter from the collection bag. Use a leg band to secure the drainage tube, so it does not pull on the catheter. Drain the collection bag when it becomes full using the drain spout at the bottom of the bag. Do not try to pull or remove your catheter. This will injure your urethra. It must be removed by a doctor or nurse. Follow Up with your doctor, or as advised, for repeat urine testing and catheter removal or replacement. Get Prompt Medical Attention if any of the following occur: Fever of 100.4F (38C) or higher, or as directed by your healthcare provider Bladder pain or fullness Abdominal swelling, nausea or vomiting or back pain Blood or urine leakage around the catheter Bloody urine coming from the catheter (if a new symptom) Catheter falls out Catheter stops draining for 6 hours Weakness, dizziness or fainting Ciprofloxacin Hydrochloride Oral tablet What is this medicine? CIPROFLOXACIN (sip yazan FLOX a sin) is a quinolone antibiotic. It is used to treat certain kinds of bacterial infections. It will not work for colds, flu, or other viral infections. How should I use this medicine? Take this medicine by mouth with a glass of water. Follow the directions on the prescription label. Take your medicine at regular intervals. Do not take your medicine more often than directed. Take all of your medicine as directed even if you think your are better. Do not skip doses or stop your medicine early. You can take this medicine with food or on an empty stomach. It can be taken with a meal that contains dairy or calcium, but do not take it alone with a dairy product, like milk or yogurt or calcium-fortified juice. A special MedGuide will be given to you by the pharmacist with each prescription and refill. Be sure to read this information carefully each time. Talk to your access analyst regarding the use of this medicine in children. Special care may be needed. What side effects may I notice from receiving this medicine? Side effects that you should report to your doctor or health home care rn as soon as possible: - allergic reactions like skin rash, itching or hives, swelling of the face, lips, or tongue - breathing problems - confusion, nightmares or hallucinations - feeling faint or lightheaded, falls - irregular heartbeat - joint, muscle or tendon pain or swelling - pain or trouble passing urine -persistent headache with or without blurred vision - redness, blistering, peeling or loosening of the skin, including inside the mouth - seizure - unusual pain, numbness, tingling, or weakness Side effects that usually do not require medical attention (report to your doctor or health home care rn if they continue or are bothersome): - diarrhea - nausea or stomach upset - white patches or sores in the mouth What may interact with this medicine? Do not take this medicine with any of the following medications: cisapride droperidol terfenadine tizanidine This medicine may also interact with the following medications: antacids caffeine cyclosporin didanosine (ddI) buffered tablets or powder medicines for diabetes medicines for inflammation like ibuprofen, naproxen methotrexate multivitamins omeprazole phenytoin probenecid sucralfate theophylline warfarin What if I miss a dose? If you miss a dose, take it as soon as you can. If it is almost time for your next dose, take only that dose. Do not take double or extra doses. Where should I keep my medicine? Keep out of the reach of children. Store at room temperature below 30 degrees C (86 degrees F). Keep container tightly closed. Throw away any unused medicine after the expiration date. What should I tell my health care provider before I take this medicine? They need to know if you have any of these conditions: -bone problems -cerebral disease -joint problems -irregular heartbeat -kidney disease -liver disease -myasthenia gravis -seizure disorder -tendon problems -an unusual or allergic reaction to ciprofloxacin, other antibiotics or medicines, foods, dyes, or preservatives - or trying to get -breast-feeding What should I watch for while using this medicine? Tell your doctor or health home care rn if your symptoms do not improve. Do not treat diarrhea with over the counter products. Contact your doctor if you have diarrhea that lasts more than 2 days or if it is severe and watery. You may get drowsy or dizzy. Do not drive, use machinery, or do anything that needs mental alertness until you know how this medicine affects you. Do not stand or sit up quickly, especially if you are an older patient. This reduces the risk of dizzy or fainting spells. This medicine can make you more sensitive to the sun. Keep out of the sun. If you cannot avoid being in the sun, wear protective clothing and use sunscreen. Do not use sun lamps or tanning beds/booths. Avoid antacids, aluminum, calcium, iron, magnesium, and zinc products for 6 hours before and 2 hours after taking a dose of this medicine. You have been given the following additional information: Bladder Infection, Female (Adult) Ly Catheter, Care Ciprofloxacin Hydrochloride Oral tablet (Electronically signed by Jose Penny MD 11/17/2016 9:46)
--- NOTE | 2016-11-17 09:47 | ED DISCHARGE INSTRUCTIONS ---
Patient: TRAVON VIDAL General Instructions [facility] VisitID: [id number] [address] [place] [place] [address] 76y, F Registration Date/Time: 11/16/2016 Urinary tract infection. Oral anticoagulation therapy with fci use and therapeutic INR. Ly catheter replacement INSTRUCTIONS Drink plenty of fluids. Warnings: Further evaluation is necessary. GENERAL WARNINGS: Return or contact your physician immediately if your condition worsens or changes unexpectedly, if not improving as expected, or if other problems arise. Your Current Medications: CONTINUE TAKING THE FOLLOWING MEDICATIONS: Amitiza Oral : Capsule 8 mcg, 1 capsule bid. [id number] Oral : Tablet Chewable 1 mg, 1/2 tablet daily. Combivent Respimat Inhalation : Aerosol Solution 20-100 mcg/act, 1 puff bid. Digoxin Oral : Tablet 125 mcg, 1 tablet daily. Flomax Oral : Capsule 0.4 mg, 1 capsule daily. Fluconazole Oral : Tablet 150 mg, 1 tablet daily. Glimepiride Oral : Tablet 4 mg, 1/2 tablet daily. Lipitor Oral : Tablet 80 mg, 1 tablet daily. Losartan Potassium Oral : Tablet 100 mg, 1/2 tablet 2x a day. Lovenox Subcutaneous : Solution 80 mg/0.8mL, 2x a day. MetFORMIN HCl Oral : Tablet 1000 mg, 1 tablet 2x a day. Methylphenidate HCl ER (LA) Oral : Capsule Extended Release 24 Hour 10 mg, 1 capsule daily. Prescription Medications: Cipro 500 mg: take 1 tab orally every 12 hours for 10 days. Dispense twenty (20). No refills. Substitution is permissible. (18 pills to finish the course started in the emergency room) Understanding of the discharge instructions verbalized by patient and family. Follow-up with: Shalom Estevez MD, Family [facility], , [facility], [address] [place] [address] Follow up Friday in two days. Call for an appointment. Reason for referral: to have your INR checked - the antibiotic to chewable been started on will likely affect your Coumadin levels. ADDITIONAL INFORMATION Bladder Infection,Female (Adult) A bladder infection ("cystitis" or "UTI") usually causes a constant urge to urinate and a burning when passing urine. Urine may be cloudy, smelly or dark. There may be pain in the lower abdomen. A bladder infection occurs when bacteria from the vaginal area enter the bladder opening (urethra). This can occur from sexual intercourse, wearing tight clothing, dehydration and other factors. Home Care: Drink lots of fluids (at least 6-8 glasses a day, unless you must restrict fluids for other medical reasons). This will force the medicine into your urinary system and flush the bacteria out of your body. Avoid sexual intercourse until your symptoms are gone. Avoid caffeine, alcohol and spicy foods. These can irritate the bladder. A bladder infection is treated with antibiotics. You may also be given Pyridium (generic = phenazopyridine) to reduce the burning sensation. This medicine will cause your urine to become a bright orange color. The orange urine may stain clothing. You may wear a pad or panty-liner to protect clothing. Preventing Future Infections: Always wipe from front to back after a bowel movement. Keep the genital area clean and dry. Drink plenty of fluids each day to avoid dehydration. Both sexual partners should wash before intercourse. Urinate right after intercourse to flush out the bladder. Wear cotton underwear and cotton-lined panty hose; avoid tight-fitting pants. If you are on control pills and are having frequent bladder infections, discuss with your doctor. Follow Up: Return to this facility or see your doctor if ALL symptoms are not gone after three days of treatment. Get Prompt Medical Attention if any of the following occur: Fever of 100.4F (38C) or higher, or as directed by your healthcare provider No improvement by the third day of treatment Increasing back or abdominal pain Repeated vomiting; unable to keep medicine down Weakness, dizziness or fainting Vaginal discharge Pain, redness or swelling in the labia (outer vaginal area) Ly Catheter Care A Ly catheter is a rubber tube that is placed through the urethra (opening where urine comes out) and into the bladder. This helps drain urine from the bladder. There is a small balloon on the end of the tube that is inflated after insertion. This keeps the catheter from sliding out of the bladder. A Ly catheter is used to treat urinary retention (unable to pass urine). It is also used when there is incontinence (loss of bladder control). Home Care: Finish taking any prescribed antibiotic even if you are feeling better before then. It is important to keep bacteria from getting into the collection bag. Do not disconnect the catheter from the collection bag. Use a leg band to secure the drainage tube, so it does not pull on the catheter. Drain the collection bag when it becomes full using the drain spout at the bottom of the bag. Do not try to pull or remove your catheter. This will injure your urethra. It must be removed by a doctor or nurse. Follow Up with your doctor, or as advised, for repeat urine testing and catheter removal or replacement. Get Prompt Medical Attention if any of the following occur: Fever of 100.4F (38C) or higher, or as directed by your healthcare provider Bladder pain or fullness Abdominal swelling, nausea or vomiting or back pain Blood or urine leakage around the catheter Bloody urine coming from the catheter (if a new symptom) Catheter falls out Catheter stops draining for 6 hours Weakness, dizziness or fainting Ciprofloxacin Hydrochloride Oral tablet What is this medicine? CIPROFLOXACIN (sip yazan FLOX a sin) is a quinolone antibiotic. It is used to treat certain kinds of bacterial infections. It will not work for colds, flu, or other viral infections. How should I use this medicine? Take this medicine by mouth with a glass of water. Follow the directions on the prescription label. Take your medicine at regular intervals. Do not take your medicine more often than directed. Take all of your medicine as directed even if you think your are better. Do not skip doses or stop your medicine early. You can take this medicine with food or on an empty stomach. It can be taken with a meal that contains dairy or calcium, but do not take it alone with a dairy product, like milk or yogurt or calcium-fortified juice. A special MedGuide will be given to you by the pharmacist with each prescription and refill. Be sure to read this information carefully each time. Talk to your fundraising coordinator regarding the use of this medicine in children. Special care may be needed. What side effects may I notice from receiving this medicine? Side effects that you should report to your doctor or health career discovery teacher as soon as possible: - allergic reactions like skin rash, itching or hives, swelling of the face, lips, or tongue - breathing problems - confusion, nightmares or hallucinations - feeling faint or lightheaded, falls - irregular heartbeat - joint, muscle or tendon pain or swelling - pain or trouble passing urine -persistent headache with or without blurred vision - redness, blistering, peeling or loosening of the skin, including inside the mouth - seizure - unusual pain, numbness, tingling, or weakness Side effects that usually do not require medical attention (report to your doctor or health career discovery teacher if they continue or are bothersome): - diarrhea - nausea or stomach upset - white patches or sores in the mouth What may interact with this medicine? Do not take this medicine with any of the following medications: cisapride droperidol terfenadine tizanidine This medicine may also interact with the following medications: antacids caffeine cyclosporin didanosine (ddI) buffered tablets or powder medicines for diabetes medicines for inflammation like ibuprofen, naproxen methotrexate multivitamins omeprazole phenytoin probenecid sucralfate theophylline warfarin What if I miss a dose? If you miss a dose, take it as soon as you can. If it is almost time for your next dose, take only that dose. Do not take double or extra doses. Where should I keep my medicine? Keep out of the reach of children. Store at room temperature below 30 degrees C (86 degrees F). Keep container tightly closed. Throw away any unused medicine after the expiration date. What should I tell my health care provider before I take this medicine? They need to know if you have any of these conditions: -bone problems -cerebral disease -joint problems -irregular heartbeat -kidney disease -liver disease -myasthenia gravis -seizure disorder -tendon problems -an unusual or allergic reaction to ciprofloxacin, other antibiotics or medicines, foods, dyes, or preservatives - or trying to get -breast-feeding What should I watch for while using this medicine? Tell your doctor or health career discovery teacher if your symptoms do not improve. Do not treat diarrhea with over the counter products. Contact your doctor if you have diarrhea that lasts more than 2 days or if it is severe and watery. You may get drowsy or dizzy. Do not drive, use machinery, or do anything that needs mental alertness until you know how this medicine affects you. Do not stand or sit up quickly, especially if you are an older patient. This reduces the risk of dizzy or fainting spells. This medicine can make you more sensitive to the sun. Keep out of the sun. If you cannot avoid being in the sun, wear protective clothing and use sunscreen. Do not use sun lamps or tanning beds/booths. Avoid antacids, aluminum, calcium, iron, magnesium, and zinc products for 6 hours before and 2 hours after taking a dose of this medicine. You have been given the following additional information: Bladder Infection, Female (Adult) Ly Catheter, Care Ciprofloxacin Hydrochloride Oral tablet (Electronically signed by Jose Penny MD 11/17/2016 9:46)
--- NOTE | 2016-11-17 09:47 | ED MAR SUMMARY ---
..... Medication Administration Record [facility] [address] [place] [address] Patient: TRAVON VIDAL Visit ID: [id number] 76y, F Weight: 102.0 kg Height/Length: 66 in BMI: 36.3 ALLERGIES: Cordran, Doxycycline, Amiodarone, Cordarone Given 20:15 11/16/2016 Darline Prado R.N. Medication Administered: DILAUDID [IVP] (HYDROMORPHONE HCL PF), Dose: 0.5 mg IVP over 1 minute(s), Site: #1 right forearm. Medication Ordered: Dilaudid IV 0.5 mg (HIGH ALERT MEDICATION, NOW). Given 21:10 11/16/2016 Darline Prado R.N. Medication Administered: LEVAQUIN [PO] (LEVOFLOXACIN), Dose: 500 mg PO. Medication Ordered: Levaquin PO 500 mg (NOW).
[2016-12-12] MEDS ORDERED: OXYCODONE HCL5 MG PO (10:35)
[2016-12-12] MEDS ORDERED: ONDANSETRON ODT4 MG PO (11:21)
[2016-12-12] MEDS ORDERED: METOCLOPRAMIDE10 MG PO (11:22)
== END 2016-11-16 21:30 | disposition home or self-care (01) ==
LOC: ED SRH 17:48
DX: N39.0 Urinary tract infection, site not specified (principal); T83.098A Other mechanical complication of other urinary catheter, initial encounter; Z79.01 Long term (current) use of anticoagulants; I10 Essential (primary) hypertension; E11.9 Type 2 diabetes mellitus without complications; J44.9 Chronic obstructive pulmonary disease, unspecified; Z88.1 Allergy status to other antibiotic agents; Z79.899 Other long term (current) drug therapy; Z79.84 Long term (current) use of oral hypoglycemic drugs; Z88.8 Allergy status to other drugs, medicaments and biological substances
CPT/HCPCS: 83475; 90004; 90070; 90100; 90469; 92235; 92530; 94001; 94060; 95059

== ENCOUNTER 2016-12-09 10:47 | Outpatient (CLI) | payer OTHER ==
--- NOTE | 2016-12-09 11:45 | DIAGNOSTIC IMAGING REPORT ---
PROCEDURE: CT ABD/PELVIS WITH CONTRAST CLINICAL INDICATION: Severe diffuse abdominal pain. Initial encounter. TECHNIQUE: 100 ml of Isovue 300 were injected intravenously and axial images were obtained of the entire abdomen and pelvis with sagittal and coronal reformations. COMPARISON: CT abdomen/pelvis 07/02/2016. FINDINGS: ABDOMEN: Lung base are clear. Stable mild cardiomegaly and small pericardial effusion. Liver, gallbladder, pancreas, spleen and adrenal glands are normal. Bilateral renal cysts. 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 There is no small bowel dilation or wall thickening. Fluid throughout the large bowel. There are some nondilated fluid filled loops of small bowel. PELVIS: Appendix not clearly identified. Uterine atrophy. Ly catheter in place. No free fluid or inflammatory changes. Left axillary bifemoral graft in place. Severe L1-2 degenerative changes. IMPRESSION: 1. Findings suggestive of enterocolitis 2. 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 Left axillary/bifemoral graft 4. Ly catheter in place 5. Stable cardiomegaly 6. Results discussed with Dr. Estevez All CT scans at this facility use dose modulation, iterative reconstruction, and/or weight-based dosing when appropriate to reduce radiation dose to as low as reasonably achievable.
[2016-12-12] MEDS ORDERED: OXYCODONE HCL5 MG PO (10:35)
[2016-12-12] MEDS ORDERED: ONDANSETRON ODT4 MG PO (11:21)
[2016-12-12] MEDS ORDERED: METOCLOPRAMIDE10 MG PO (11:22)
== END 2016-12-09 23:00 ==
LOC: CT SRH 10:47
DX: R10.84 Generalized abdominal pain (principal); Z96.0 Presence of urogenital implants

== ENCOUNTER 2016-12-11 03:08 | Emergency (ER) | payer OTHER ==
--- NOTE | 2016-12-11 04:54 | ED ORDER SUMMARY ---
..... Patient: TRAVON VIDAL OrderSheet [facility] VisitID: [id number] [address] [place] [address] 76y, F Registration Date/Time: 12/11/2016 ORDER SHEET Weight: 83.4 kg (stated) Allergies: Amiodarone, Cordarone, Cordran, Doxycycline GENERAL ORDERS: - (stool guaiac) (03:12/11/2016 Mary GUERRERO) (Ack 3:32 Erlinda) CBC w Diff Urgent (03:12/11/2016 Mary GUERRERO) (Ack 3:31 Erlinda) (3:56 DDavis R.N.) CMP Urgent (03:12/11/2016 Mary GUERRERO) (Ack 3:31 Erlinda) (3:56 DDavis R.N.) UA-Culture if indicated Urgent (03:12/11/2016 Mary GUERRERO) (Ack 3:31 Erlinda) (3:56 DDavis R.N.) Amylase Urgent (03:12/11/2016 Mary GUERRERO) (Ack 3:31 Erlinda) (3:56 DDavis R.N.) Lipase Urgent (03:12/11/2016 Mary GUERRERO) (Ack 3:31 Erlinda) (3:56 DDavis R.N.) Stool for C. Difficile Urgent (03:12/11/2016 Mary GUERRERO) (Ack 3:31 Erlinda) Stool WBC Urgent (03:12/11/2016 Mary GUERRERO) (Ack 3:31 Erlinda) Giardia EIA Urgent (03:12/11/2016 Mary GUERRERO) (Ack 3:32 Erlinda) Culture, Stool Urgent (03:12/11/2016 Mary GUERRERO) (Ack 3:32 Erlinda) Ova & Parasite Exam Urgent (03:29 12/11/2016 Mary GUERRERO) (Ack 3:32 Erlinda) PT with INR Urgent (03:40 12/11/2016 Mary GUERRERO) (Ack 3:42 Erlinda) (3:56 Zulema R.N.) PTT Urgent (03:40 12/11/2016 Mary GUERRERO) (Ack 3:42 Erlinda) (3:56 Zulema R.N.) MEDICATION ORDERS: IV FLUIDS: IV NS : initial bolus 250 mL (1000 mL/hr), then 100 mL/hr for 4h (NOW); Urgent (03:28 12/11/2016 Mary GUERRERO) (3:57 DDgallito R.N.) ORDER SHEET NOTES: [Electronically signed by Andrew Fuchs R.N. (:12/11/2016)] [Electronically signed by Jose Penny MD (12/18/2016)] [Electronically locked/signed by Andrew Fuchs R.N. (12/11/2016)]
--- NOTE | 2016-12-11 04:54 | ED CLINICAL REPORT ---
Clinical Report - Physicians/Mid Levels [facility] [address] [place] [address] 12/11/2016 3:08 Patient: ANGELINA CALVILLO Time Seen: 03:11. Arrived- By private vehicle. Historian- patient and spouse. HISTORY OF PRESENT ILLNESS Chief Complaint: ABDOMINAL PAIN. It is described as "pain", cramping and diffuse. This started 2 months ago and is still present. It was gradual in onset and has been constant and waxing/waning. The patient has had nausea. No vomiting. She has had severe diarrhea. This has occurred numerous times. It has been watery and contained mucous, has been associated with cramps and has been similar to previous symptoms. Similar symptoms previously: Chronically. REVIEW OF SYSTEMS The patient has had chills and fatigue and experienced sweats. No calf pain, chest pain, cough, difficulty breathing or pedal edema. No palpitations or urinary problems. her reports that a stool sample has been collected and was taken to Dr. Estevez's office yesterday. All systems otherwise negative, except as recorded above. SOCIAL HISTORY Former smoker. No alcohol use or drug use. She lives with spouse. Has good social support. FAMILY HISTORY Denies family medical history. ADDITIONAL NOTES The nursing notes have been reviewed. PHYSICAL EXAM Vital Signs: 12/11/2016 03:15 BP: 134/78. HR: 75. RR: 20. O2 saturation: 94%. Temp: 98.1 F. Pain level now: 7/10. Have been reviewed. Appearance: Alert. Eyes: Pupils equal, round and reactive to light. ENT: Pharynx normal. Neck: Neck supple. CVS: Normal heart rate and rhythm. Heart sounds normal. Respiratory: No respiratory distress. Breath sounds normal. Abdomen: Soft. Mild tenderness diffusely. Abnormal bowel sounds: hyperactive. No organomegaly. No mass. Obese. Back: Normal inspection. Rectal: Rectal exam normal and nontender. Stool heme negative. (POC test reference range: negative). 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 Skin: Skin warm and dry. Extremities: Extremities exhibit normal ROM. No calf tenderness. No lower extremity edema. LABS, X-RAYS, AND EKG Laboratory Tests: UA-Culture if indicated: (ADDI: 12/11/2016 03:45) ( [facility] 12/11/2016 04:26) IP Test Result Flag Units (Reference) URINE COLOR YELLOW URINE APPEARANCE SL CLOUDY URINE GLUCOSE NEGATIVE (NEGATIVE) URINE BILIRUBIN NEGATIVE (NEGATIVE) URINE KETONE NEGATIVE (NEGATIVE) URINE SPECIFIC GRAVITY 1.025 (1.010-1.030) URINE PH 6.0 (5.0-8.0) URINE PROTEIN 2+ (NEGATIVE) URINE UROBILINOGEN 1.0 EU/dL (0.2-1.0) URINE NITRITE NEGATIVE (NEGATIVE) URINE BLOOD 2+ (NEGATIVE) URINE LEUK ESTERASE POSITIVE (NEGATIVE) CBC w Diff: (ADDI: 12/11/2016 03:40) ( [facility] 12/11/2016 04:15) Final results Test Result Flag Units (Reference) WHITE BLOOD COUNT 15.8 H K/uL (4.5-11.5) RED BLOOD COUNT 4.80 M/uL (4.00-5.20) HEMOGLOBIN 12.2 gm/dL (12.0-16.0) HEMATOCRIT 38.9 % (36.0-46.0) MEAN CELL VOLUME 81 fL (80-100) MEAN CORPUSCULAR HGB 25 L pg (26-34) MEAN CORPUSCULAR HGB CONC 31 g/dL (31-37) RED CELL DISTRIBUTION WIDTH 23.9 H % (11.6-14.8) PLATELET COUNT 339 K/uL (150-400) NEUTROPHIL % 69.2 % (50-75) LYMPH % 19.8 L % (25-40) MONO % 9.3 % (3-14) EOSINOPHIL % 1.5 % (0-4) BASOPHIL % 0.2 % (0-2) PT with INR: (ADDI: 12/11/2016 03:40) ( [facility] 12/11/2016 04:29) Final results Test Result Flag Units (Reference) INR 5.9 *H (0.8-1.2) Verified by repeat.CRITICAL RESULTS CALLEDCalled to NANCY AHUJA IN ED 12/11/16 0428Were 2 patient identifiers used? YWas the result read back? YLow Intensity Therapy: INR 1.5-2.0 PT range 18.5-23.1Mod.Intensity Therapy: INR 2.0-3.0 PT range 23.1-31.5High Intensity Therapy: INR 2.5-3.5 PT range 27.4-35.5High Intensity Therapy 2: INR 3.0-4.0 PT range 31.5-39.3 APTT 52 H SECONDS (24-34) CMP: (ADDI: 12/11/2016 03:40) ( MsgRcvd 12/11/2016 04:31) Final results Test Result Flag Units (Reference) GLUCOSE 103 mg/dL (70-110) BUN 26 H mg/dL (7-18) CREATININE 1.5 H mg/dL (0.6-1.3) Estimated GFR 36.08 mL/min Estimated GFR- 43.73 mL/min Note: Persistent reduction over 3 months in eGFR<60 mL/min/1.73 m2 defines CKD. Patients with eGFR values>=60 mL/min/1.73 m2 may also have CKD if evidence ofpersistent proteinuria. Additional information may be foundat www.kidney.org. SODIUM 136 mmol/L (136-145) POTASSIUM 4.5 mmol/L (3.5-5.1) CHLORIDE 101 mmol/L (98-107) CARBON DIOXIDE 25 mmol/L (21-32) CALCIUM 9.1 mg/dL (8.5-10.1) TOTAL PROTEIN 7.4 g/dL (6.4-8.2) ALBUMIN 3.2 L g/dL (3.3-5.0) BILIRUBIN, TOTAL 0.8 mg/dL (0.0-1.0) ALKALINE PHOSPHATASE 163 H U/L (46-116) AST (SGOT) 31 U/L (15-37) ALT (SGPT) 29 U/L (12-78) LIPASE 160 U/L (73-393) AMYLASE 55 U/L (25-115) . PROGRESS AND PROCEDURES Course of Care: Name: Angelina Calvillo) : 1940 MR#: [id number] Ordering Provider: GILMA ESTEVEZ Exam(s): CT ABD/PELVIS WITH CONTRAST Date of Exam: 12/09/2016 __ PROCEDURE: CT ABD/PELVIS WITH CONTRAST CLINICAL INDICATION: Severe diffuse abdominal pain. Initial encounter. TECHNIQUE: 100 ml of Isovue 300 were injected intravenously and axial images were obtained of the entire abdomen and pelvis with sagittal and coronal reformations. COMPARISON: CT abdomen/pelvis 07/02/2016. FINDINGS: ABDOMEN: Lung base are clear. Stable mild cardiomegaly and small pericardial effusion. Liver, gallbladder, pancreas, spleen and adrenal glands are normal. Bilateral renal cysts. 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 There is no small bowel dilation or wall thickening. Fluid throughout the large bowel. There are some nondilated fluid filled loops of small bowel. PELVIS: Appendix not clearly identified. Uterine atrophy. Ly catheter in place. No free fluid or inflammatory changes. Left axillary bifemoral graft in place. Severe L1-2 degenerative changes. IMPRESSION: 1. Findings suggestive of enterocolitis 2. 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 Left axillary/bifemoral graft 4. Ly catheter in place 5. Stable cardiomegaly 6. Results discussed with Dr. Estevez. Patient/family counseled. Old medical records reviewed. Disposition: Discharged. Condition: stable. CLINICAL IMPRESSION Chronic generalized abdominal pain of undetermined cause. Diarrhea (per history). Abnormal tests: (supratherapeutic INR). asymptomatic bacteriuria. INSTRUCTIONS Drink plenty of fluids. (hold your warfarin. Contact Dr. Estevez's office today and talk with him about the appropriate adjustments to your warfarin dosage as discussed). Warnings: Further evaluation is necessary. GENERAL WARNINGS: Return or contact your physician immediately if your condition worsens or changes unexpectedly, if not improving as expected, or if other problems arise. Your Current Medications: STOP TAKING THE FOLLOWING MEDICATIONS: Warfarin Sodium Oral : Tablet 1 mg, 4 tablets, 4 mg 2 days a week 5 mg 5 days a week. CONTINUE TAKING THE FOLLOWING MEDICATIONS: Amitiza Oral : Capsule 8 mcg, 1 capsule bid. [id number] Oral : Tablet Chewable 1 mg, 1/2 tablet daily. Combivent Respimat Inhalation : Aerosol Solution 20-100 mcg/act, 1 puff bid. Digoxin Oral : Tablet 125 mcg, 1 tablet daily. Flomax Oral : Capsule 0.4 mg, 1 capsule daily. Fluconazole Oral : Tablet 150 mg, 1 tablet daily. Glimepiride Oral : Tablet 4 mg, 1/2 tablet daily. Lipitor Oral : Tablet 80 mg, 1 tablet daily. Losartan Potassium Oral : Tablet 100 mg, 1/2 tablet 2x a day. Lovenox Subcutaneous : Solution 80 mg/0.8mL, 2x a day. MetFORMIN HCl Oral : Tablet 1000 mg, 1 tablet 2x a day. Methylphenidate HCl ER (LA) Oral : Capsule Extended Release 24 Hour 10 mg, 1 capsule daily. Metoprolol Tartrate Oral : Tablet 50 mg, 1/2 tablet bid. MiraLax Oral : 1 packet daily. Omeprazole Oral : Tablet Delayed Release 20 mg, 1 tablet 2x a day. PARoxetine HCl Oral : Tablet 20 mg, 1 tablet daily. Requip Oral : Tablet 0.25 mg, 1-2 tablets hs. Serevent Diskus Inhalation : 1 puff 2x a day. Spironolactone Oral : Tablet 25 mg, 1 tablet daily. Torsemide Oral : Tablet 5 mg, 1 tablet daily. Tramadol HCL Oral : Tablet 50 mg, 1-1/2 tablets 3x a day. TraZODone HCl Oral : Tablet 150 mg, 1/2 tablet at bedtime. Tylenol Arthritis Pain Oral : Tablet Extended Release 650 mg, 3 tablets bid. Understanding of the discharge instructions verbalized by patient. Follow-up with: Gilma Estevez MD, Family [facility], , [facility], [address] [place] [address] Follow up today. Call for an appointment. (Electronically signed by Jose Penny MD 12/18/2016 1:19) Addenda for ANGELINA CALVILLO VisitID: [id number] Date: 12/11/2016 12/12/2016 17:25 Phone call placed to patient, talked to . He stated pt was unable to talk at this time. Informed of positive urine culture report, called in Macrobid 100 mg BID #14, x 7 days, per SASHA Bassett, to [facility] in [place]. (Electronically signed by Komal Vitale R.N. - 12/12/2016 17:25)
--- NOTE | 2016-12-11 04:54 | ED ORDER SUMMARY ---
..... Patient: TRAVON VIDAL OrderSheet [facility] VisitID: [id number] [address] [place] [address] 76y, F Registration Date/Time: 12/11/2016 ORDER SHEET Weight: 83.4 kg (stated) Allergies: Amiodarone, Cordarone, Cordran, Doxycycline GENERAL ORDERS: - (stool guaiac) (03:12/11/2016 Mary GUERRERO) (Ack 3:32 Erlinda) CBC w Diff Urgent (03:12/11/2016 Mary GUERRERO) (Ack 3:31 Erlinda) (3:56 DDavis R.N.) CMP Urgent (03:12/11/2016 Mary GUERRERO) (Ack 3:31 Erlinda) (3:56 DDavis R.N.) UA-Culture if indicated Urgent (03:12/11/2016 Mary GUERRERO) (Ack 3:31 Erlinda) (3:56 DDavis R.N.) Amylase Urgent (03:12/11/2016 Mary GUERRERO) (Ack 3:31 Erlinda) (3:56 DDavis R.N.) Lipase Urgent (03:12/11/2016 Mary GUERRERO) (Ack 3:31 Erlinda) (3:56 DDavis R.N.) Stool for C. Difficile Urgent (03:12/11/2016 Mary GUERRERO) (Ack 3:31 Erlinda) Stool WBC Urgent (03:12/11/2016 Mary GUERRERO) (Ack 3:31 Erlinda) Giardia EIA Urgent (03:12/11/2016 Mary GUERRERO) (Ack 3:32 Erlinda) Culture, Stool Urgent (03:12/11/2016 Mary GUERRERO) (Ack 3:32 Erlinda) Ova & Parasite Exam Urgent (03:29 12/11/2016 Mary GUERRERO) (Ack 3:32 Erlinda) PT with INR Urgent (03:40 12/11/2016 Mary GUERRERO) (Ack 3:42 Erlinda) (3:56 Zulema R.N.) PTT Urgent (03:40 12/11/2016 Mary GUERRERO) (Ack 3:42 Erlinda) (3:56 Zulema R.N.) MEDICATION ORDERS: IV FLUIDS: IV NS : initial bolus 250 mL (1000 mL/hr), then 100 mL/hr for 4h (NOW); Urgent (03:28 12/11/2016 Mary GUERRERO) (3:57 DDgallito R.N.) ORDER SHEET NOTES: [Electronically signed by Andrew Fuchs R.N. (:12/11/2016)] [Electronically signed by Jose Penny MD (12/18/2016)] [Electronically locked/signed by Andrew Fuchs R.N. (12/11/2016)]
--- NOTE | 2016-12-11 04:54 | ED NURSING NOTES ---
Clinical Report - Nurses [facility] [address] [place] [address] 12/11/2016 3:08 [id number] Triage time 03:15. Acuity: LEVEL 3. Chief Complaint: ABDOMINAL PAIN and DIARRHEA. Alert. FAIZAN COMA SCORE: [place] Coma Scale: 15- eyes open spontaneously (4); best verbal response- oriented x 4 (5); best motor response- obeys commands (6). --03:21 Andrew Fuchs R.N. 03:15 12/11/16. BP: 134/78 taken while lying. HR: 75. RR: 20 (regular and labored). O2 saturation: 94% on room air. Temp: 98.1 F (oral). Pain level now: 7/10. --03:21 Andrew Fuchs R.N. Weight: 83.4 kg stated. Height/Length: 66 inches Per Patient. BMI: 29.7. --03:15 Andrew Fuchs R.N. Medications Amitiza Oral (Capsule 8 mcg) 1 capsule, bid. [id number] Oral (Tablet Chewable 1 mg) 1/2 tablet, daily. --03:16 Andrew Fuchs R.N. Combivent Respimat Inhalation (Aerosol Solution 20-100 mcg/act) 1 puff, bid. Digoxin Oral (Tablet 125 mcg) 1 tablet, daily. Flomax Oral (Capsule 0.4 mg) 1 capsule, daily. Fluconazole Oral (Tablet 150 mg) 1 tablet, daily. Glimepiride Oral (Tablet 4 mg) 1/2 tablet, daily. Lipitor Oral (Tablet 80 mg) 1 tablet, daily. Losartan Potassium Oral (Tablet 100 mg) 1/2 tablet, 2x a day. Lovenox Subcutaneous (Solution 80 mg/0.8mL), 2x a day. MetFORMIN HCl Oral (Tablet 1000 mg) 1 tablet, 2x a day. Methylphenidate HCl ER (LA) Oral (Capsule Extended Release 24 Hour 10 mg) 1 capsule, daily. Metoprolol Tartrate Oral (Tablet 50 mg) 1/2 tablet, bid. MiraLax Oral 1 packet, daily. Omeprazole Oral (Tablet Delayed Release 20 mg) 1 tablet, 2x a day. PARoxetine HCl Oral (Tablet 20 mg) 1 tablet, daily. Requip Oral (Tablet 0.25 mg) 1-2 tablets, hs. Serevent Diskus Inhalation 1 puff, 2x a day. Spironolactone Oral (Tablet 25 mg) 1 tablet, daily. Torsemide Oral (Tablet 5 mg) 1 tablet, daily. Tramadol HCL Oral (Tablet 50 mg) 1-1/2 tablets, 3x a day. TraZODone HCl Oral (Tablet 150 mg) 1/2 tablet, at bedtime. Tylenol Arthritis Pain Oral (Tablet Extended Release 650 mg) 3 tablets , bid. Warfarin Sodium Oral (Tablet 1 mg) 4 tablets (4 mg 2 days a week 5 mg 5 days a week). --03:16 Andrew Fuchs R.N. Allergies Amiodarone. Cordarone. Cordran. Doxycycline. --03:16 Andrew Fuchs R.N. History Arrived by private vehicle. Historian: patient. Accompanied by spouse. Onset. (2 months). ( Patient states having C-Diff. and that she had a CT scan "Friday" and states that they are waiting for results. They states abdominal pain has increased.). PAST MEDICAL HX: Denies current . SOCIAL HX: Former smoker. No alcohol use or drug use. SELF HARM ASSESSMENT: A self harm assessment was performed. The patient answered "no" to the question "Do you have thoughts of harming or killing yourself?" and "Are you here because you tried to hurt yourself?". NUTRITIONAL RISK ASSESSMENT: The nutritional risk assessment revealed no deficiencies. FUNCTIONAL ASSESSMENT: Functional assessment: no impairments noted. LEARNING NEEDS ASSESSMENT: The learning needs assessment revealed no barriers. FALL RISK ASSESSMENT: Fall risk assessment completed. Risk factors identified include patient age greater than 65 years. SKIN INTEGRITY ASSESSMENT: Skin integrity risk assessment completed. No skin integrity risk identified. --03:21 Andrew Fuchs R.N. PROBLEMS: C. Difficile Colitis. Hyponatremia. Leukocytosis. Abnormal EKG. COPD - Chronic Obstructive Pulmonary Disease. Lung Disease. Heart Disease. GI Disease. Nephropathy. Cystitis. Ly Catheter Replacement. Fecal Impaction. LNMP - Last Normal Menstrual Period. Hypomagnesemia. Constipation. Hyperkalemia. Hematuria. Emphysema. Cancer. Abdominal Pain. UTI - Urinary Tract Infection. Atrial Fibrillation. Sleep Apnea. Diabetes Mellitus. Hypertension. Urinary Retention. Aortic Stenosis. --03:21 Andrew Fuchs R.N. Bowel Obstruction [RuleOut]. --03:21 Andrew Fuchs R.N. ADDITIONAL SURGERIES: Aortofemoral Bypass. Appendectomy. Bladder Suspension. Previous Abdominal Surgery. Valve Replacement. --03:21 Andrew Fuchs R.N. Interventions ID and allergy band on patient. To treatment room. --03:21 Andrew Fuchs R.N. PHYSICAL ASSESSMENT To room via wheelchair. GENERAL / NEURO / PSYCH: Alert. Oriented X 4. HEENT: Mucous membranes are pink. CVS: Capillary refill less than 2 seconds. GI / : Abdomen soft. Abdominal tenderness. SKIN: Skin is warm and dry. --03:23 Andrew Fuchs R.N. NURSING PROGRESS NOTES Pulse oximeter and NIBP monitor placed on patient. Patient gowned. Head of bed elevated. Two patient identifiers checked. Call light placed in reach. Side rails up x 1. Bed placed in lowest position. Brakes of bed on. Patient ready for evaluation- chart flagged. Patient waiting for evaluation. --03:22 Andrew Fuchs R.N. ( Patient states that she cannot provide a stool sample at this time. She states that she will notify the nursing staff when she can.). --03:59 Andrew Fuchs R.N. 03:45 12/11/2016 Started bag #1 1000 IV Fluids IV NS (Saline); at 250 mL/hr over 15 minute(s) via site #1 via IV pump. Allergies verified and confirmed 5 rights. IV patency established. IV site checked: no pain, redness, or swelling. IV flushed thoroughly pre- and post-medication administration. --04:02 Andrew Fuchs R.N. 03:45 12/11/2016 Site #1 started via IV in the left antecubital space with an 20g angiocath, with aseptic technique and good blood return; one attempt. Blood drawn: rainbow set. Labeled in the presence of the patient and sent to the lab. Saline lock flushed with 10 mL saline. --04:02 Andrew Fuchs R.N. <<STRICKEN ENTRY-- 03:52 12/11/2016 Site #1 started via IV in the left antecubital space with an 20g angiocath, with aseptic technique and good blood return; one attempt. Blood drawn: rainbow set. Labeled in the presence of the patient and sent to the lab. Saline lock flushed with 10 mL saline. --03:57 Andrew Fuchs R.N. --END STRIKE>> Correction. --04:02 Andrew Fuchs R.N. <<TRISHA ENTRY-- 03:52 12/11/2016 Started bag #1 1000 mL IV Fluids IV NS (Saline); at 250 mL/hr over 15 minute(s) via site #1 via IV pump. Allergies verified and confirmed 5 rights. IV patency established. IV site checked: no pain, redness, or swelling. IV flushed thoroughly pre- and post-medication administration. --03:57 Andrew Fuchs R.N. --END STRIKE>> Correction. --04:02 Andrew Fuchs R.N. 04:00 12/11/2016 Started bag #1 750 mL IV Fluids IV NS (Saline); at 100 mL/hr over 4 hour(s) via site #1 via IV pump. Allergies verified and confirmed 5 rights. IV patency established. IV site checked: no pain, redness, or swelling. IV flushed thoroughly pre- and post-medication administration. Completed per protocol. --04:00 Andrew Fuchs R.N. 04:00 12/11/2016 IV Fluids IV NS Discontinued: completed. Total amount infused: 250 mL. IV patency established. IV site checked: no pain, redness, or swelling. IV flushed thoroughly. --05:18 Andrew Fuchs R.N. <<STRICKEN ENTRY-- 04:18 12/11/2016 IV Fluids IV NS Discontinued: completed. Total amount infused: 250 mL. IV patency established. IV site checked: no pain, redness, or swelling. IV flushed thoroughly. --05:18 Andrew Fuchs R.N. --END STRIKE>> Correction. --05:18 Andrew Fuchs R.N. 04:28 12/11/16. Critical value relayed to ED by Jesica. Critical value received by Alma. INR: 5.88. ED physician notifed of critical value. Orders were not received. --04:28 Kaity Umanzor R.N. 05:00 12/11/2016 IV Fluids IV NS Discontinued: upon discharge. Total amount infused: 100 mL. IV patency established. IV site checked: no pain, redness, or swelling. IV flushed thoroughly. --05:18 Andrew Fuchs R.N. DISPOSITION / DISCHARGE 04:58 12/11/2016 Site #1 removed upon discharge. Manual pressure and bandage applied. --05:15 Andrew Fuchs R.N. Departure time: 0500. Condition at departure: stable. No learning barriers present. Discharge instructions provided and reviewed with the patient and spouse. Reviewed warnings. Treatments reviewed. Reviewed referrals for followup. Patient and spouse verbalized understanding. Written instructions provided in [place]. The patient was discharged home and accompanied by spouse. She left the Emergency Department in a wheelchair and via private vehicle. Spouse driving. --05:16 Andrew Fuchs R.N. <<STRICKEN ENTRY-- 05:15 12/11/16. BP: 111/50. HR: 70. RR: 24 (regular and unlabored). O2 saturation: 95% on room air. --05:16 Andrew Fuchs R.N. --END STRIKE>> Correction --05:16 Andrew Fuchs R.N. 05:00 12/11/16. BP: 111/50. HR: 70. RR: 24 (regular and unlabored). O2 saturation: 95% on room air. --05:17 Andrew Fuchs R.N. Locked/Released at 12/11/2016 5:19 by Andrew Fuchs R.N.
--- NOTE | 2016-12-11 04:54 | ED CLINICAL REPORT ---
Clinical Report - Physicians/Mid Levels [facility] [address] [place] [address] 12/11/2016 3:08 Patient: ANGELINA CALVILLO Time Seen: 03:11. Arrived- By private vehicle. Historian- patient and spouse. HISTORY OF PRESENT ILLNESS Chief Complaint: ABDOMINAL PAIN. It is described as "pain", cramping and diffuse. This started 2 months ago and is still present. It was gradual in onset and has been constant and waxing/waning. The patient has had nausea. No vomiting. She has had severe diarrhea. This has occurred numerous times. It has been watery and contained mucous, has been associated with cramps and has been similar to previous symptoms. Similar symptoms previously: Chronically. REVIEW OF SYSTEMS The patient has had chills and fatigue and experienced sweats. No calf pain, chest pain, cough, difficulty breathing or pedal edema. No palpitations or urinary problems. her reports that a stool sample has been collected and was taken to Dr. Estevez's office yesterday. All systems otherwise negative, except as recorded above. SOCIAL HISTORY Former smoker. No alcohol use or drug use. She lives with spouse. Has good social support. FAMILY HISTORY Denies family medical history. ADDITIONAL NOTES The nursing notes have been reviewed. PHYSICAL EXAM Vital Signs: 12/11/2016 03:15 BP: 134/78. HR: 75. RR: 20. O2 saturation: 94%. Temp: 98.1 F. Pain level now: 7/10. Have been reviewed. Appearance: Alert. Eyes: Pupils equal, round and reactive to light. ENT: Pharynx normal. Neck: Neck supple. CVS: Normal heart rate and rhythm. Heart sounds normal. Respiratory: No respiratory distress. Breath sounds normal. Abdomen: Soft. Mild tenderness diffusely. Abnormal bowel sounds: hyperactive. No organomegaly. No mass. Obese. Back: Normal inspection. Rectal: Rectal exam normal and nontender. Stool heme negative. (POC test reference range: negative). (a female remnant sorter was present). Skin: Skin warm and dry. Extremities: Extremities exhibit normal ROM. No calf tenderness. No lower extremity edema. LABS, X-RAYS, AND EKG Laboratory Tests: UA-Culture if indicated: (ADDI: 12/11/2016 03:45) ( [facility] 12/11/2016 04:26) IP Test Result Flag Units (Reference) URINE COLOR YELLOW URINE APPEARANCE SL CLOUDY URINE GLUCOSE NEGATIVE (NEGATIVE) URINE BILIRUBIN NEGATIVE (NEGATIVE) URINE KETONE NEGATIVE (NEGATIVE) URINE SPECIFIC GRAVITY 1.025 (1.010-1.030) URINE PH 6.0 (5.0-8.0) URINE PROTEIN 2+ (NEGATIVE) URINE UROBILINOGEN 1.0 EU/dL (0.2-1.0) URINE NITRITE NEGATIVE (NEGATIVE) URINE BLOOD 2+ (NEGATIVE) URINE LEUK ESTERASE POSITIVE (NEGATIVE) CBC w Diff: (ADDI: 12/11/2016 03:40) ( [facility] 12/11/2016 04:15) Final results Test Result Flag Units (Reference) WHITE BLOOD COUNT 15.8 H K/uL (4.5-11.5) RED BLOOD COUNT 4.80 M/uL (4.00-5.20) HEMOGLOBIN 12.2 gm/dL (12.0-16.0) HEMATOCRIT 38.9 % (36.0-46.0) MEAN CELL VOLUME 81 fL (80-100) MEAN CORPUSCULAR HGB 25 L pg (26-34) MEAN CORPUSCULAR HGB CONC 31 g/dL (31-37) RED CELL DISTRIBUTION WIDTH 23.9 H % (11.6-14.8) PLATELET COUNT 339 K/uL (150-400) NEUTROPHIL % 69.2 % (50-75) LYMPH % 19.8 L % (25-40) MONO % 9.3 % (3-14) EOSINOPHIL % 1.5 % (0-4) BASOPHIL % 0.2 % (0-2) PT with INR: (ADDI: 12/11/2016 03:40) ( [facility] 12/11/2016 04:29) Final results Test Result Flag Units (Reference) INR 5.9 *H (0.8-1.2) Verified by repeat.CRITICAL RESULTS CALLEDCalled to NANCY AHUJA IN ED 12/11/16 0428Were 2 patient identifiers used? YWas the result read back? YLow Intensity Therapy: INR 1.5-2.0 PT range 18.5-23.1Mod.Intensity Therapy: INR 2.0-3.0 PT range 23.1-31.5High Intensity Therapy: INR 2.5-3.5 PT range 27.4-35.5High Intensity Therapy 2: INR 3.0-4.0 PT range 31.5-39.3 APTT 52 H SECONDS (24-34) CMP: (ADDI: 12/11/2016 03:40) ( MsgRcvd 12/11/2016 04:31) Final results Test Result Flag Units (Reference) GLUCOSE 103 mg/dL (70-110) BUN 26 H mg/dL (7-18) CREATININE 1.5 H mg/dL (0.6-1.3) Estimated GFR 36.08 mL/min Estimated GFR- 43.73 mL/min Note: Persistent reduction over 3 months in eGFR<60 mL/min/1.73 m2 defines CKD. Patients with eGFR values>=60 mL/min/1.73 m2 may also have CKD if evidence ofpersistent proteinuria. Additional information may be foundat www.kidney.org. SODIUM 136 mmol/L (136-145) POTASSIUM 4.5 mmol/L (3.5-5.1) CHLORIDE 101 mmol/L (98-107) CARBON DIOXIDE 25 mmol/L (21-32) CALCIUM 9.1 mg/dL (8.5-10.1) TOTAL PROTEIN 7.4 g/dL (6.4-8.2) ALBUMIN 3.2 L g/dL (3.3-5.0) BILIRUBIN, TOTAL 0.8 mg/dL (0.0-1.0) ALKALINE PHOSPHATASE 163 H U/L (46-116) AST (SGOT) 31 U/L (15-37) ALT (SGPT) 29 U/L (12-78) LIPASE 160 U/L (73-393) AMYLASE 55 U/L (25-115) . PROGRESS AND PROCEDURES Course of Care: Name: Angelina Calvillo) : 1940 MR#: [id number] Ordering Provider: GILMA ESTEVEZ Exam(s): CT ABD/PELVIS WITH CONTRAST Date of Exam: 12/09/2016 __ PROCEDURE: CT ABD/PELVIS WITH CONTRAST CLINICAL INDICATION: Severe diffuse abdominal pain. Initial encounter. TECHNIQUE: 100 ml of Isovue 300 were injected intravenously and axial images were obtained of the entire abdomen and pelvis with sagittal and coronal reformations. COMPARISON: CT abdomen/pelvis 07/02/2016. FINDINGS: ABDOMEN: Lung base are clear. Stable mild cardiomegaly and small pericardial effusion. Liver, gallbladder, pancreas, spleen and adrenal glands are normal. Bilateral renal cysts. 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 There is no small bowel dilation or wall thickening. Fluid throughout the large bowel. There are some nondilated fluid filled loops of small bowel. PELVIS: Appendix not clearly identified. Uterine atrophy. Ly catheter in place. No free fluid or inflammatory changes. Left axillary bifemoral graft in place. Severe L1-2 degenerative changes. IMPRESSION: 1. Findings suggestive of enterocolitis 2. 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 Left axillary/bifemoral graft 4. Ly catheter in place 5. Stable cardiomegaly 6. Results discussed with Dr. Estevez. Patient/family counseled. Old medical records reviewed. Disposition: Discharged. Condition: stable. CLINICAL IMPRESSION Chronic generalized abdominal pain of undetermined cause. Diarrhea (per history). Abnormal tests: (supratherapeutic INR). asymptomatic bacteriuria. INSTRUCTIONS Drink plenty of fluids. (hold your warfarin. Contact Dr. Estevez's office today and talk with him about the appropriate adjustments to your warfarin dosage as discussed). Warnings: Further evaluation is necessary. GENERAL WARNINGS: Return or contact your physician immediately if your condition worsens or changes unexpectedly, if not improving as expected, or if other problems arise. Your Current Medications: STOP TAKING THE FOLLOWING MEDICATIONS: Warfarin Sodium Oral : Tablet 1 mg, 4 tablets, 4 mg 2 days a week 5 mg 5 days a week. CONTINUE TAKING THE FOLLOWING MEDICATIONS: Amitiza Oral : Capsule 8 mcg, 1 capsule bid. [id number] Oral : Tablet Chewable 1 mg, 1/2 tablet daily. Combivent Respimat Inhalation : Aerosol Solution 20-100 mcg/act, 1 puff bid. Digoxin Oral : Tablet 125 mcg, 1 tablet daily. Flomax Oral : Capsule 0.4 mg, 1 capsule daily. Fluconazole Oral : Tablet 150 mg, 1 tablet daily. Glimepiride Oral : Tablet 4 mg, 1/2 tablet daily. Lipitor Oral : Tablet 80 mg, 1 tablet daily. Losartan Potassium Oral : Tablet 100 mg, 1/2 tablet 2x a day. Lovenox Subcutaneous : Solution 80 mg/0.8mL, 2x a day. MetFORMIN HCl Oral : Tablet 1000 mg, 1 tablet 2x a day. Methylphenidate HCl ER (LA) Oral : Capsule Extended Release 24 Hour 10 mg, 1 capsule daily. Metoprolol Tartrate Oral : Tablet 50 mg, 1/2 tablet bid. MiraLax Oral : 1 packet daily. Omeprazole Oral : Tablet Delayed Release 20 mg, 1 tablet 2x a day. PARoxetine HCl Oral : Tablet 20 mg, 1 tablet daily. Requip Oral : Tablet 0.25 mg, 1-2 tablets hs. Serevent Diskus Inhalation : 1 puff 2x a day. Spironolactone Oral : Tablet 25 mg, 1 tablet daily. Torsemide Oral : Tablet 5 mg, 1 tablet daily. Tramadol HCL Oral : Tablet 50 mg, 1-1/2 tablets 3x a day. TraZODone HCl Oral : Tablet 150 mg, 1/2 tablet at bedtime. Tylenol Arthritis Pain Oral : Tablet Extended Release 650 mg, 3 tablets bid. Understanding of the discharge instructions verbalized by patient. Follow-up with: Gilma Estevez MD, [facility], , [facility], [address] [place] [address] Follow up today. Call for an appointment. (Electronically signed by Jose Penny MD 12/18/2016 1:19) Addenda for ANGELINA CALVILLO VisitID: [id number] Date: 12/11/2016 12/12/2016 17:25 Phone call placed to patient, talked to . He stated pt was unable to talk at this time. Informed of positive urine culture report, called in Macrobid 100 mg BID #14, x 7 days, per SASHA Bassett, to [facility] in [place]. (Electronically signed by Komal Vitale R.N. - 12/12/2016 17:25)
[2016-12-12] MEDS ORDERED: OXYCODONE HCL5 MG PO (10:35)
[2016-12-12] MEDS ORDERED: ONDANSETRON ODT4 MG PO (11:21)
[2016-12-12] MEDS ORDERED: METOCLOPRAMIDE10 MG PO (11:22)
--- NOTE | 2016-12-18 01:19 | ED DISCHARGE INSTRUCTIONS ---
Patient: TRAVON VIDAL General Instructions [facility] VisitID: [id number] [place] [address] 76y, F Registration Date/Time: 12/11/2016 Chronic generalized abdominal pain of undetermined cause. Diarrhea (per history). Abnormal tests: (supratherapeutic INR). asymptomatic bacteriuria. INSTRUCTIONS Drink plenty of fluids. (hold your warfarin. Contact Dr. Estevez's office today and talk with him about the appropriate adjustments to your warfarin dosage as discussed). Warnings: Further evaluation is necessary. GENERAL WARNINGS: Return or contact your physician immediately if your condition worsens or changes unexpectedly, if not improving as expected, or if other problems arise. Your Current Medications: STOP TAKING THE FOLLOWING MEDICATIONS: Warfarin Sodium Oral : Tablet 1 mg, 4 tablets, 4 mg 2 days a week 5 mg 5 days a week. CONTINUE TAKING THE FOLLOWING MEDICATIONS: Amitiza Oral : Capsule 8 mcg, 1 capsule bid. [id number] Oral : Tablet Chewable 1 mg, 1/2 tablet daily. Combivent Respimat Inhalation : Aerosol Solution 20-100 mcg/act, 1 puff bid. Digoxin Oral : Tablet 125 mcg, 1 tablet daily. Flomax Oral : Capsule 0.4 mg, 1 capsule daily. Fluconazole Oral : Tablet 150 mg, 1 tablet daily. Glimepiride Oral : Tablet 4 mg, 1/2 tablet daily. Lipitor Oral : Tablet 80 mg, 1 tablet daily. Losartan Potassium Oral : Tablet 100 mg, 1/2 tablet 2x a day. Lovenox Subcutaneous : Solution 80 mg/0.8mL, 2x a day. MetFORMIN HCl Oral : Tablet 1000 mg, 1 tablet 2x a day. Methylphenidate HCl ER (LA) Oral : Capsule Extended Release 24 Hour 10 mg, 1 capsule daily. Metoprolol Tartrate Oral : Tablet 50 mg, 1/2 tablet bid. MiraLax Oral : 1 packet daily. Omeprazole Oral : Tablet Delayed Release 20 mg, 1 tablet 2x a day. PARoxetine HCl Oral : Tablet 20 mg, 1 tablet daily. Requip Oral : Tablet 0.25 mg, 1-2 tablets hs. Serevent Diskus Inhalation : 1 puff 2x a day. Spironolactone Oral : Tablet 25 mg, 1 tablet daily. Torsemide Oral : Tablet 5 mg, 1 tablet daily. Tramadol HCL Oral : Tablet 50 mg, 1-1/2 tablets 3x a day. TraZODone HCl Oral : Tablet 150 mg, 1/2 tablet at bedtime. Tylenol Arthritis Pain Oral : Tablet Extended Release 650 mg, 3 tablets bid. Understanding of the discharge instructions verbalized by patient. Follow-up with: Shalom Estevez MD, [facility], , [facility], [address] [place] [address] Follow up today. Call for an appointment. ADDITIONAL INFORMATION Abdominal Pain, Unknown Cause (Female) The exact cause of your abdominal (stomach) pain is not certain. This does not mean that this is something to worry about, or the right tests were not done. Everyone likes to know the exact cause of the problem, but sometimes with abdominal pain, there is no clear-cut cause, and this could be a good thing. The good news is that your symptoms can be treated, and you will feel better. Your condition does not seem serious now; however, sometimes the signs of a serious problem may take more time to appear. For this reason,it is important for you to watch for any new symptoms, problems,or worsening of your condition. Over the next few days, the abdominal pain may come and go, or be continuous. Other common symptoms can include nausea and vomiting. Sometimes it can be difficult to tell if you feel nauseous, you may just feel bad and not associate that feeling with nausea. Constipation, diarrhea, and a fever may go along with the pain. The pain may continue even if treated correctly over the following days. Depending on how things go, sometimes the cause can become clear and may require further or different treatment. Additional evaluations, medications, or tests may be needed. Home care Your health care provider may prescribe medications for pain, symptoms, or an infection. Follow the health care provider's instructions for taking these medications. General care Rest until your next exam. No strenuous activities. Try to find positions that ease discomfort. A small pillow placed on the abdomen may help relieve pain. Something warm on your abdomen (such as a heating pad) may help, but be careful not to burn yourself. Diet Do not force yourself to eat, especially if having cramps, vomiting, or diarrhea. Water is important so you do not get dehydrated. Soup may also be good. Sports drinks may also help, especially if they are not too acidic. Make sure you don't drink sugary drinks as this can make things worse. Take liquids in small amounts. Do not guzzle them. Caffeine sometimes makes the pain and cramping worse. Avoid dairy products if you have vomiting or diarrhea. Don't eat large amounts at a time. Wait a few minutes between bites. Eat a diet low in fiber (called a low-residue diet). Foods allowed include refined breads, white rice, fruit and vegetable juices without pulp, tender meats. These foods will pass more easily through the intestine. Avoid whole-grain foods, whole fruits and vegetables, meats, seeds and nuts, fried or fatty foods, dairy, alcohol and spicy foods until your symptoms go away. Follow-up care Follow up with your health care provider as instructed, or if your pain does not begin to improve in the next 24 hours. When to seek medical care Seek prompt medical care if any of the following occur: Pain gets worse or moves to the right lower abdomen New or worsening vomiting or diarrhea Swelling of the abdomen Unable to pass stool for more than three days Fever of 100.4F (38C) or higher, or as directed by your healthcare provider. Blood in vomit or bowel movements (dark red or black color) Jaundice (yellow color of eyes and skin) Weakness, dizziness Chest, arm, back, neck or jaw pain Unexpected vaginal bleeding or missed period Call 911 Call emergency services if any of the following occur: Trouble breathing Confusion Fainting or loss of consciousness Rapid heart rate Seizure Diarrhea, Uncertain Cause (Adult, Report Pending) Diarrhea has several possible causes. Commonstomach fluis caused by a virus. Food poisoning, bacteria or parasites are other causes for diarrhea. Only diarrhea caused by bacteria or parasites requires treatment with an antibiotic. Diarrhea from a virus or food poisoning improves with simple home treatment. A stool sample is needed to make the diagnosis of an infection with bacteria or parasites. Up to three stool specimens may be required to diagnose This may take up to two days to get the result. It may be necessary to wait until the stool test is complete to make the diagnosis and select the best antibiotic to prescribe. Home Care: If symptoms are severe, rest at home for the next 24 hours or until you are feeling better. You may use acetaminophen (Tylenol) or ibuprofen (Motrin, Advil) to control fever, unless another medicine was prescribed. [NOTE: If you have chronic liver or kidney disease or ever had a stomach ulcer or GI bleeding, talk with your doctor before using these medicines.] (Aspirin should never be used in anyone under 18 years of age who is ill with a fever. It may cause severe liver damage.) Avoid tobacco, caffeine and alcohol, which may worsen your symptoms. If anti-diarrhea medicine was prescribed, take this only as directed. Sometimes anti-diarrhea medicine can make your condition worse if the cause is an infectious diarrhea. Therefore, anti-diarrhea medicine should not be taken for this condition unless advised by your doctor. During The First 12-24 Hours follow the diet below: BEVERAGES: Sport drinks like Gatorade, soft drinks without caffeine; samuel ruthann, mineral water (plain or flavored), decaffeinated tea and coffee. SOUPS: Clear broth, consomm and bouillon DESSERTS: Plain gelatin (Jell-O), popsicles and fruit juice bars. During The Next 24 Hours you may add the following to the above: Hot cereal, plain toast, bread, rolls, crackers Plain noodles, rice, mashed potatoes, chicken noodle or rice soup Unsweetened canned fruit (avoid pineapple), bananas Limit fat intake to less than 15 grams per day by avoiding margarine, butter, oils, mayonnaise, sauces, gravies, fried foods, peanut butter, meat, poultry and fish. Limit fiber; avoid raw or cooked vegetables, fresh fruits (except bananas) and bran cereals. Limit caffeine and chocolate. No spices or seasonings except salt. During The Next 24 Hours Gradually resume a normal diet, as you feel better and your symptoms lessen. Follow Up with your doctor or as advised if you are not improving over the next two days. If you were asked to bring a specimen from home, bring the sample on the day of collection. You may call in 2 days (or as directed) for the results. Get Prompt Medical Attention if any of the following occur: Increasing abdominal pain or constant lower right abdominal pain Continued vomiting (unable to keep liquids down) Frequent diarrhea (more than 5 times a day) Blood in vomit or stool (black or red color) Reduced oral intake Dark urine, reduced urine output Weakness, dizziness, fainting Drowsiness, confusion, stiff neck or seizure Fever of 100.4F (38C) oral or higher, not better with fever medication New rash You have been given the following additional information: Abdominal Pain, Unknown Cause, (Female) Diarrhea, Unk Cause (Adult) Report Pendg (Electronically signed by Jose Penny MD 12/18/2016 1:19)
--- NOTE | 2016-12-18 01:19 | ED MED RECONCILIATION SUMMARY ---
Patient: TRAVON VIDAL Medication Reconciliation Report [facility] VisitID: [id number] [place] [address] 76y, F Registration Date/Time: 12/11/2016 Weight: 83.4 kg Height/Length: 66 in. BMI: 29.7 ALLERGIES: Amiodarone, Cordarone, Cordran, Doxycycline The patient's Home Medications are listed below: STOP TAKING THE FOLLOWING MEDICATIONS: Warfarin Sodium Oral (1 mg) 4 tablets, 4 mg 2 days a week5 mg 5 days a week CONTINUE TAKING THE FOLLOWING MEDICATIONS: Amitiza Oral (8 mcg) 1 capsule, bid [id number] Oral (1 mg) 1/2 tablet, daily Combivent Respimat Inhalation (20-100 mcg/act) 1 puff, bid Digoxin Oral (125 mcg) 1 tablet, daily Flomax Oral (0.4 mg) 1 capsule, daily Fluconazole Oral (150 mg) 1 tablet, daily Glimepiride Oral (4 mg) 1/2 tablet, daily Lipitor Oral (80 mg) 1 tablet, daily Losartan Potassium Oral (100 mg) 1/2 tablet, 2x a day Lovenox Subcutaneous (80 mg/0.8mL), 2x a day MetFORMIN HCl Oral (1000 mg) 1 tablet, 2x a day Methylphenidate HCl ER (LA) Oral (10 mg) 1 capsule, daily Metoprolol Tartrate Oral (50 mg) 1/2 tablet, bid MiraLax Oral 1 packet, daily Omeprazole Oral (20 mg) 1 tablet, 2x a day PARoxetine HCl Oral (20 mg) 1 tablet, daily Requip Oral (0.25 mg) 1-2 tablets, hs Serevent Diskus Inhalation 1 puff, 2x a day Spironolactone Oral (25 mg) 1 tablet, daily Torsemide Oral (5 mg) 1 tablet, daily Tramadol HCL Oral (50 mg) 1-1/2 tablets, 3x a day TraZODone HCl Oral (150 mg) 1/2 tablet, at bedtime Tylenol Arthritis Pain Oral (650 mg) 3 tablets , bid The source(s) of the original Home Medication information: Not obtained. The following Medications were given to the patient in the Emergency Department: IV NS IV Fluids bolus 0, then 250 mL/hr, administered: 12/11/2016 3:45:00 AM IV NS IV Fluids bolus 0, then 100 mL/hr, administered: 12/11/2016 4:00:00 AM The following Medications were prescribed to the patient: None.
--- NOTE | 2016-12-18 01:19 | ED MAR SUMMARY ---
..... Medication Administration Record Located Within [facility] [address] [place] [address] Patient: TRAVON VIDAL Visit ID: [id number] 76y, F Weight: 83.4 kg Height/Length: 66 in BMI: 29.7 ALLERGIES: Amiodarone, Cordarone, Cordran, Doxycycline Start 03:45 12/11/2016 Andrew Fuchs R.N., Stop 04:00 12/11/2016 Andrew Fuchs R.N. Medication Administered: IV NS (SALINE), Dose: IV Fluids over 15 minute(s), Rate: 250 mL/hr, Dispensed: 1000 mL bag, Site: #1 left AC. Medication Ordered: IV NS : initial bolus 250 mL (1000 mL/hr), then 100 mL/hr for 4h (NOW); Urgent. Start 04:00 12/11/2016 Andrew Fuchs R.N., Stop 05:00 12/11/2016 Andrew Fuchs R.N. Medication Administered: IV NS (SALINE), Dose: IV Fluids over 4 hour(s), Rate: 100 mL/hr, Dispensed: 750 mL bag, Site: #1 left AC. Medication Ordered: IV NS : initial bolus 250 mL (1000 mL/hr), then 100 mL/hr for 4h (NOW); Urgent.
--- NOTE | 2016-12-18 01:19 | ED MAR SUMMARY ---
..... Medication Administration Record [facility] [address] [place] [address] Patient: TRAVON VIDAL Visit ID: [id number] 76y, F Weight: 83.4 kg Height/Length: 66 in BMI: 29.7 ALLERGIES: Amiodarone, Cordarone, Cordran, Doxycycline Start 03:45 12/11/2016 Andrew Fuchs R.N., Stop 04:00 12/11/2016 Andrew Fuchs R.N. Medication Administered: IV NS (SALINE), Dose: IV Fluids over 15 minute(s), Rate: 250 mL/hr, Dispensed: 1000 mL bag, Site: #1 left AC. Medication Ordered: IV NS : initial bolus 250 mL (1000 mL/hr), then 100 mL/hr for 4h (NOW); Urgent. Start 04:00 12/11/2016 Andrew Fuchs R.N., Stop 05:00 12/11/2016 Andrew Fuchs R.N. Medication Administered: IV NS (SALINE), Dose: IV Fluids over 4 hour(s), Rate: 100 mL/hr, Dispensed: 750 mL bag, Site: #1 left AC. Medication Ordered: IV NS : initial bolus 250 mL (1000 mL/hr), then 100 mL/hr for 4h (NOW); Urgent.
--- NOTE | 2016-12-18 01:19 | ED MED RECONCILIATION SUMMARY ---
Patient: TRAVON VIDAL Medication Reconciliation Report [facility] VisitID: [id number] [place] [address] 76y, F Registration Date/Time: 12/11/2016 Weight: 83.4 kg Height/Length: 66 in. BMI: 29.7 ALLERGIES: Amiodarone, Cordarone, Cordran, Doxycycline The patient's Home Medications are listed below: STOP TAKING THE FOLLOWING MEDICATIONS: Warfarin Sodium Oral (1 mg) 4 tablets, 4 mg 2 days a week5 mg 5 days a week CONTINUE TAKING THE FOLLOWING MEDICATIONS: Amitiza Oral (8 mcg) 1 capsule, bid [id number] Oral (1 mg) 1/2 tablet, daily Combivent Respimat Inhalation (20-100 mcg/act) 1 puff, bid Digoxin Oral (125 mcg) 1 tablet, daily Flomax Oral (0.4 mg) 1 capsule, daily Fluconazole Oral (150 mg) 1 tablet, daily Glimepiride Oral (4 mg) 1/2 tablet, daily Lipitor Oral (80 mg) 1 tablet, daily Losartan Potassium Oral (100 mg) 1/2 tablet, 2x a day Lovenox Subcutaneous (80 mg/0.8mL), 2x a day MetFORMIN HCl Oral (1000 mg) 1 tablet, 2x a day Methylphenidate HCl ER (LA) Oral (10 mg) 1 capsule, daily Metoprolol Tartrate Oral (50 mg) 1/2 tablet, bid MiraLax Oral 1 packet, daily Omeprazole Oral (20 mg) 1 tablet, 2x a day PARoxetine HCl Oral (20 mg) 1 tablet, daily Requip Oral (0.25 mg) 1-2 tablets, hs Serevent Diskus Inhalation 1 puff, 2x a day Spironolactone Oral (25 mg) 1 tablet, daily Torsemide Oral (5 mg) 1 tablet, daily Tramadol HCL Oral (50 mg) 1-1/2 tablets, 3x a day TraZODone HCl Oral (150 mg) 1/2 tablet, at bedtime Tylenol Arthritis Pain Oral (650 mg) 3 tablets , bid The source(s) of the original Home Medication information: Not obtained. The following Medications were given to the patient in the Emergency Department: IV NS IV Fluids bolus 0, then 250 mL/hr, administered: 12/11/2016 3:45:00 AM IV NS IV Fluids bolus 0, then 100 mL/hr, administered: 12/11/2016 4:00:00 AM The following Medications were prescribed to the patient: None.
== END 2016-12-11 05:00 | disposition home or self-care (01) ==
LOC: ED SRH 03:08
DX: R10.84 Generalized abdominal pain (principal); G89.29 Other chronic pain; R82.71 Bacteriuria; R79.1 Abnormal coagulation profile; R19.7 Diarrhea, unspecified; I10 Essential (primary) hypertension; E11.9 Type 2 diabetes mellitus without complications; Z79.84 Long term (current) use of oral hypoglycemic drugs; J44.9 Chronic obstructive pulmonary disease, unspecified; Z87.891 Personal history of nicotine dependence
CPT/HCPCS: 90004; 90070; 90100; 90469; 92235; 92530; 94001; 94060; 95059

== ENCOUNTER 2016-12-13 06:14 | Day surgery (SDC) | payer OTHER ==
[~2016-12-13] VITALS: Ht 168.9 cm; Wt 83.9 kg
[~2016-12-13 06:14] MED LIST changes: +ONDANSETRON ODT4 MG PO; +OXYCODONE HCL5 MG PO
--- NOTE | 2016-12-13 09:21 | Provider's Discharge Care Plan ---
Problem, Goal, Plan Problem List 1. Abdominal pain
--- NOTE | 2016-12-13 09:21 | Provider's Discharge Care Plan ---
Problem, Goal, Plan Problem List 1. Abdominal pain
--- NOTE | 2016-12-13 09:33 | [facility] OPERATIVE REPORT ---
DATE OF SURGERY: 12/13/2016 SURGEON: Manpreet Cosby MD PREOPERATIVE DIAGNOSIS: 1. Enterocolitis POSTOPERATIVE DIAGNOSES: 1. Rectal polyp 2. Possible colitis 3. Diverticulosis PROCEDURE PERFORMED: 1. Colonoscopy with biopsy and forceps polypectomy ANESTHESIA: Total IV general. INDICATIONS: The patient is a 76-year-old woman referred for colonoscopy due to a recent episode of severe abdominal cramping. A CT scan demonstrated possible enterocolitis. SURGICAL TECHNIQUE: The patient was taken to the endoscopy suite were total IV general was administered and the patient was placed in the left lateral decubitus position. The patient still had an elevated INR despite withholding her Coumadin. The endoscope was advanced through the rectum under direct vision. The rectum itself appeared to be free of inflammation or mucosal changes. There was some twisting in the sigmoid colon as well as some diverticulosis, which was negotiated. There was a patch of redness near the hepatic flexure, but there was no severe ulceration or active bleeding. The ileocecal valve was visualized. On withdrawal, this erythematous portion was sampled with the biopsy forceps and following biopsies, epinephrine containing local anesthetic was instilled for topical effect due to the patient's elevated INR. This area was observed and there was no ongoing bleeding. On further withdrawal, there was a single sessile polyp noted in the rectum about 3 mm in diameter. This was removed with the biopsy forceps. This did not have ongoing bleeding. The patient left in good condition and no intraoperative complications were encountered.
[2016-12-13 10:19] VITALS: BP 140/61
--- NOTE | 2016-12-31 02:49 | HISTORY AND PHYSICAL ---
ADMITTED: 12/13/2016 MEDICATIONS: 1. Methylphenidate 10 mg b.i.d. 2. Amitiza 8 mg b.i.d. 3. Polyethylene glycol MiraLAX 17 grams p.o. every day. 4. Metformin 1 gram p.o. b.i.d. 5. Ipratropium/albuterol inhaler 1 puff b.i.d. 6. Digoxin 0.125 p.o. daily. 7. Paroxetine 20 mg p.o. daily. 8. Spironolactone 25 mg p.o. daily. 9. Serevent Diskus 50 mcg b.i.d. 10. Aerosolized metoprolol 50 mg p.o. daily. 11. Septra 0.5 tablets p.o. daily. 12. Tramadol 75 mg p.o. t.i.d. p.r.n. pain. 13. Trazodone 75 mg p.o. at bedtime. 14. Lipitor 40 mg p.o. every day. 15. Tamsulosin 0.4 mg b.i.d. 16. Omeprazole 20 mg daily. 17. Losartan 50 mg daily. 18. Warfarin 5 mg every day, last dose on 12/10/2016. 19. Torsemide 10 mg daily. 20. Acetaminophen 500 mg t.i.d. 21. Glimepiride 2 mg p.o. daily. 22. Ropinirole 0.5 mg at bedtime. 23. Gabapentin 600 mg t.i.d. 24. Lidoderm 5% patch, on 12 hours and off 12 hours. 25. Carafate 1 gram p.o. q.6 hours. 26. Oxycodone 5 mg q.6 hours. 27. Ondansetron 4 mg 1-2 tablets q.4 hours. 28. Metoclopramide 10 mg p.o. q.i.d.
== END 2016-12-13 10:29 | disposition home or self-care (01) ==
LOC: SCU SRH 06:14 → OR SRH 06:14 → SCU SRH 06:15 → OR SRH 07:30
PROVIDERS: Surgery
PROC: 0DBK8ZX Excision of Ascending Colon, Via Natural or Artificial Opening Endoscopic, Diagnostic (ICD-10-PCS; principal; 2016-12-13 07:30)
PROC: 0DBP8ZX Excision of Rectum, Via Natural or Artificial Opening Endoscopic, Diagnostic (ICD-10-PCS; principal; 2016-12-13 07:30)
DX: D12.8 Benign neoplasm of rectum (principal); K52.9 Noninfective gastroenteritis and colitis, unspecified; K57.30 Diverticulosis of large intestine without perforation or abscess without bleeding; Z79.01 Long term (current) use of anticoagulants; Z95.2 Presence of prosthetic heart valve; J44.9 Chronic obstructive pulmonary disease, unspecified; E11.9 Type 2 diabetes mellitus without complications; Z79.84 Long term (current) use of oral hypoglycemic drugs
CPT/HCPCS: 29229; 29240; 50004; 60001; 82944; 83526; 90074; 94060

== ENCOUNTER 2017-01-09 09:12 | Outpatient (CLI) | payer OTHER ==
--- NOTE | 2017-01-09 11:32 | DIAGNOSTIC IMAGING REPORT ---
PROCEDURE: US ABDOMEN ULTRASOUND-COMPLETE INDICATION: ABD PAIN TECHNIQUE: Piedra scale and color Doppler sonographic images of the abdomen were obtained. COMPARISON: CT abdomen/pelvis 12/09/2016 and abdominal ultrasound 03/12/2016. FINDINGS: Normal liver, spleen and gallbladder. Enlarged CBD measures 10.9 mm ([address] scan).. There is no intrahepatic ductal dilation and there is a negative Elmore's sign. Normal pancreatic duct. Head of the pancreas is normal but body and tail are obscured by bowel gas. Visualized aorta and IVC are unremarkable. Normal hepatopetal flow. Right kidney measures 11.8 cm with several cysts, largest in the upper pole 1.1 cm. Left kidney measures 10.7 cm with several cysts, largest in the upper pole 1.7 cm. IMPRESSION: 1. Dilated common bile duct suggestive of a distal obstruction. Distal common bile duct calculus is a consideration. Correlate clinically and nuclear medicine HIDA scan may be useful for further evaluation 2. Bilateral renal cysts 3. Results discussed with Dr. Estevez
== END 2017-01-09 23:00 ==
LOC: US SRH 09:12
DX: R10.84 Generalized abdominal pain (principal); N28.1 Cyst of kidney, acquired; K83.8 Other specified diseases of biliary tract

== ENCOUNTER 2017-01-09 16:41 | Outpatient (CLI) | payer OTHER ==
--- NOTE | 2017-01-09 17:23 | DIAGNOSTIC IMAGING REPORT ---
PROCEDURE: CT ABDOMEN WITHOUT CONTRAST INDICATION: ABD PAIN, ELEVATED WBC'S TECHNIQUE: Axial scans with coronal and sagittal re-formations. COMPARISON: Abdominal ultrasound 01/09/[address] abdomen/pelvis 12/09/2016. FINDINGS: Common hepatic duct measures 11 mm and bile duct at the head of the pancreas measures 7 mm. No evidence of a distal calculus or pancreatic abnormality. No dilation of the pancreatic duct. Normal gallbladder. Moderately distended stomach with gastric contents. Liver, pancreas, spleen and adrenal glands are normal. Bilateral renal cysts. Severe atherosclerosis of the aorta, celiac trunk and SMA. Small hiatal hernia. Nonspecific bowel gas pattern. Left abdominal subcutaneous graft in place. Severe L1-2 degenerative changes. Mild chronic T11 compression fracture IMPRESSION: 1. Normal common bile duct without evidence of a distal obstruction 2. Severe atherosclerosis of the aorta, celiac trunk and SMA 3. Distended stomach. Consider gastroparesis versus gastric outlet obstruction 4. Small hiatal hernia 5. Left abdominal subcutaneous graft 6. Results discussed with Dr. Estevez
== END 2017-01-09 23:00 ==
LOC: CT SRH 16:41
DX: R10.84 Generalized abdominal pain (principal); I70.0 Atherosclerosis of aorta; K44.9 Diaphragmatic hernia without obstruction or gangrene; Z98.890 Other specified postprocedural states

== ENCOUNTER 2017-01-13 08:04 | Outpatient (CLI) | payer OTHER ==
--- NOTE | 2017-01-13 15:40 | DIAGNOSTIC IMAGING REPORT ---
PROCEDURE: NM HEPATOBILIARY IMAGING INDICATION: ABD PAIN, DILATED BILIARY DUCTS, COMPARE TO US TECHNIQUE: 8 mCi of technetium-99m Choletec was injected intravenously and images were acquired over a one hour time interval. Subsequently, fatty shake was given with calculation of gallbladder ejection fraction. COMPARISON: Abdominal ultrasound and CT abdomen/pelvis 01/09/2017. FINDINGS: Homogeneous radiotracer uptake in the liver. Gallbladder is first visualized at 35 minutes. Small bowel activity is seen at 30 minutes. Ejection fraction was zero at 15 minutes, zero at 30 minutes and 10% at 45 minutes. IMPRESSION: 1. Patent cystic and common bile ducts 2. Gallbladder dyskinesia
== END 2017-01-13 23:00 ==
LOC: NM SRH 08:04
DX: K82.8 Other specified diseases of gallbladder (principal)

== ENCOUNTER 2017-02-10 07:57 | Day surgery (SDC) | payer OTHER ==
[~2017-02-10] VITALS: Ht 167.6 cm; Wt 75.3 kg
--- NOTE | 2017-02-10 11:18 | DIAGNOSTIC IMAGING REPORT ---
PROCEDURE: XR INTRAOPERATIVE LAP GIL INDICATION: GALLBLADDER DYSFUNCTION TECHNIQUE: Intraoperative fluoroscopy provided for Dr. Manzo performing an intraoperative cholangiogram following cholecystectomy. Total fluoroscopy time 0.2-minute Cumulative dose 10.7 mGy. COMPARISON: None. FINDINGS: Four intraoperative fluoroscopic spot images of the right upper quadrant of the abdomen demonstrate cannulation of the cystic duct stump and opacification of the intrahepatic and extrahepatic biliary tree. There are no filling defects. There is normal passage of contrast into the duodenum. IMPRESSION: 1. Negative intraoperative cholangiogram.
--- NOTE | 2017-02-10 11:25 | Provider's Discharge Care Plan ---
Problem, Goal, Plan Problem List 1. Abdominal pain 2. Biliary dyskinesia
--- NOTE | 2017-02-10 11:25 | Provider's Discharge Care Plan ---
Problem, Goal, Plan Problem List 1. Abdominal pain 2. Biliary dyskinesia
--- NOTE | 2017-02-10 11:58 | OPERATIVE REPORT ---
DATE OF SURGERY: 02/10/2017 SURGEON: Manpreet Cosby MD RECREATION ATTENDANT SUPERVISOR: Ari Figueroa III, MD PREOPERATIVE DIAGNOSIS: 1. Biliary dyskinesia POSTOPERATIVE DIAGNOSIS: 1. Biliary dyskinesia PROCEDURE PERFORMED: 1. Laparoscopic cholecystectomy with cholangiography ANESTHESIA: General. INDICATIONS: The patient is a 77-year-old woman with recurrent postprandial right upper quadrant abdominal pain and abnormal HIDA scan. SURGICAL TECHNIQUE: The patient was taken to the operating room where a general anesthetic was administered and the patient prepped and draped in the usual sterile fashion. A local anesthetic of 0.5% Marcaine with epinephrine was used at each incision site. The patient's Coumadin had been held, and she was given injectable Lovenox during the last couple of days. A local anesthetic of 0.5% Marcaine with epinephrine was used at each incision site. An intraumbilical incision was made and a Veress needle used to insufflate. The insufflation was to 12 mm and no higher, due to the patient's preexisting vascular and cardiac problems. Three additional trocars were placed in the usual positions. The omental adhesions were taken down from the gallbladder and the gallbladder was elevated. The cystic duct was isolated at the neck of the gallbladder and a clip was placed. A fluoroscopic cholangiogram demonstrated a generous common duct, but no persistent filling defects and free flow into the duodenum. The cystic duct and artery were clipped and divided and gallbladder stripped from the gallbladder fossa using electrocautery. It was delivered to the upper trocar site where it was suctioned free of bile and removed. The operative site was found to be hemostatic. Additional Marcaine was instilled, gas was evacuated, and the midline trocar sites closed with interrupted subcuticular 4-0 Vicryl suture. Steri-Strips and dressings were placed. The patient left in stable condition. No intraoperative complications were encountered.
[2017-02-10 13:14] VITALS: BP 134/49
== END 2017-02-10 13:27 | disposition home or self-care (01) ==
LOC: OR SRH 07:57 → SCU SRH 07:57 → OR SRH 10:30
PROVIDERS: Surgery
PROC: BF131ZZ Fluoroscopy of Gallbladder and Bile Ducts using Low Osmolar Contrast (ICD-10-PCS; principal; 2017-02-10 10:30)
PROC: 0FT44ZZ Resection of Gallbladder, Percutaneous Endoscopic Approach (ICD-10-PCS; principal; 2017-02-10 10:30)
DX: K82.8 Other specified diseases of gallbladder (principal); K81.1 Chronic cholecystitis; Z79.01 Long term (current) use of anticoagulants; I48.91 Unspecified atrial fibrillation; I10 Essential (primary) hypertension; Z95.2 Presence of prosthetic heart valve; E11.9 Type 2 diabetes mellitus without complications; Z79.84 Long term (current) use of oral hypoglycemic drugs
CPT/HCPCS: 29240; 50002; 60001; 70002; 80102; 80212; 80248; 82794; 82807; 83339; 83348; 83587; 83920; 83937; 83982; 84038; 90074; 94060

== ENCOUNTER 2017-02-17 19:58 | Emergency (ER) | payer OTHER ==
--- NOTE | 2017-02-17 22:24 | DIAGNOSTIC IMAGING REPORT ---
PROCEDURE: CT ABDOMEN/PELVIS W/O CONTRAST INDICATION: ABDOMINAL PAIN TECHNIQUE: Noncontrast axial images were obtained of the entire abdomen and pelvis with sagittal and coronal reformations. IV contrast not utilized due to diabetes and low GFR. COMPARISON: CT abdomen/pelvis 01/09/2017. FINDINGS: ABDOMEN: Lung base are clear. Mild to moderate cardiomegaly. Cholecystectomy. Dilated common hepatic duct (22 mm) and bile duct in the head of the pancreas, 14 mm. No evidence of a biloma. Several new low density areas of the spine, possible infarcts. Pancreas is spleen are unremarkable. Small bilateral renal cysts. Severe atherosclerosis of the aorta, celiac trunk and SMA. Small hiatal hernia. There is some wall thickening of the transverse colon. PELVIS: Appendix not visualized. Fluid in the sigmoid colon. Ly catheter in place. Hysterectomy. No inflammatory changes or free fluid. Near occlusion of the aortic bifurcation with severe atherosclerosis of the iliac and femoral vessels. Left axillary bifemoral graft in place. Stable mild T11 super endplate compression fracture. Severe 12 degenerative changes. IMPRESSION: 1. Cholecystectomy with dilation of the common bile duct (14 mm). Minute correlate with LFTs. No evidence of a biloma or free fluid. 2. Small hiatal hernia 3. New hypodense lesions in the spleen, possible infarcts 4. Thickening of the transverse colon with fluid in the sigmoid colon which may represent colitis. Correlate clinically 5. Severe atherosclerosis of the aorta, celiac trunk and SMA. No evidence of small bowel ischemia. 6. Left axillary bifemoral graft in place 7. Hysterectomy 8. Results discussed with Dr. Desir All CT scans at this facility use dose modulation, iterative reconstruction, and/or weight-based dosing when appropriate to reduce radiation dose to as low as reasonably achievable.
--- NOTE | 2017-02-18 00:03 | ED CLINICAL REPORT ---
Clinical Report - Physicians/Mid Levels [facility] [address] [place] [address] 02/17/2017 19:59 Patient: TRAVON VIDAL Time Seen: 20:08. Arrived- By private vehicle. Historian- patient. HISTORY OF PRESENT ILLNESS Chief Complaint: ABDOMINAL PAIN. At its maximum, severity described as moderate. When seen in the E.D., severity described as moderate. Modifying factors. Not worsened by anything. Not relieved by anything. It is described as "pain" and it is described as located in the lower abdomen. This started several days ago and is still present. The patient has had nausea, loss of appetite, vomiting and diarrhea. Similar symptoms previously: None. Recent medical care: The patient was seen recently by a health care provider. ( Patient had a lap cholecystectomy about one week ago.). REVIEW OF SYSTEMS No constipation, black stools, hematemesis, difficulty with urination or pain with urination. No urinary frequency, bloody stools, fever, headache or sore throat. No blurred vision, chest pain, difficulty breathing, cough or joint pain. No skin rash, chills or back pain. All systems otherwise negative, except as recorded above. PAST HISTORY Problems: C. Difficile Colitis. Dehydration. COPD - Chronic Obstructive Pulmonary Disease. Nephropathy. Fecal Impaction. LNMP - Last Normal Menstrual Period. Hypomagnesemia. Constipation. Hyperkalemia. Emphysema. Cancer. Atrial Fibrillation. Sleep Apnea. Diabetes Mellitus. Hypertension. Immunizations. Urinary Retention. Aortic Stenosis. Additional Surgeries: Aortofemoral Bypass. Appendectomy. Bladder Suspension. Valve Replacement. Medications: had vicodin 5/325 at 1900. Allergies: Amiodarone. Cordarone. Cordran. Doxycycline. SOCIAL HISTORY Smoker- current status unknown. No alcohol use or drug use. ADDITIONAL NOTES The nursing notes have been reviewed. PHYSICAL EXAM Vital Signs: 02/17/2017 20:07 BP: 150/108. HR: 66. RR: 18. O2 saturation: 100%. Temp: 98.4 F. Pain level now: 8/10. Have been reviewed. Appearance: Alert. Oriented X3. No acute distress. (Patient appears moderately uncomfortable.). Eyes: Pupils equal, round and reactive to light. Eyes normal inspection. ENT: Nose normal. Neck: Normal inspection. Neck supple. CVS: Normal heart rate and rhythm. Heart sounds normal. Pulses normal. Respiratory: No respiratory distress. Breath sounds normal. Abdomen: Soft. Moderate tenderness diffusely. No guarding or rebound tenderness. (stigmata of recent abdominal surgery. No signs of infection.). Back: Normal inspection. Skin: Skin warm and dry. Normal skin color. No rash. Normal skin turgor. Extremities: No lower extremity edema. Neuro: (Grossly intact.). LABS, X-RAYS, AND EKG Abdominal CT: PROCEDURE: CT ABDOMEN/PELVIS W/O CONTRAST INDICATION: ABDOMINAL PAIN TECHNIQUE: Noncontrast axial images were obtained of the entire abdomen and pelvis with sagittal and coronal reformations. IV contrast not utilized due to diabetes and low GFR. COMPARISON: CT abdomen/pelvis 01/09/2017. FINDINGS: ABDOMEN: Lung base are clear. Mild to moderate cardiomegaly. Cholecystectomy. Dilated common hepatic duct (22 mm) and bile duct in the head of the pancreas, 14 mm. No evidence of a biloma. Several new low density areas of the spine, possible infarcts. Pancreas is spleen are unremarkable. Small bilateral renal cysts. Severe atherosclerosis of the aorta, celiac trunk and SMA. Small hiatal hernia. There is some wall thickening of the transverse colon. PELVIS: Appendix not visualized. Fluid in the sigmoid colon. Ly catheter in place. Hysterectomy. No inflammatory changes or free fluid. Near occlusion of the aortic bifurcation with severe atherosclerosis of the iliac and femoral vessels. Left axillary bifemoral graft in place. Stable mild T11 super endplate compression fracture. Severe 12 degenerative changes. IMPRESSION: 1. Cholecystectomy with dilation of the common bile duct (14 mm). Minute correlate with LFTs. No evidence of a biloma or free fluid. 2. Small hiatal hernia 3. New hypodense lesions in the spleen, possible infarcts 4. Thickening of the transverse colon with fluid in the sigmoid colon which may represent colitis. Correlate clinically 5. Severe atherosclerosis of the aorta, celiac trunk and SMA. No evidence of small bowel ischemia. 6. Left axillary bifemoral graft in place 7. Hysterectomy. Laboratory Tests: UA-Culture if indicated: (ADDI: 02/17/2017 23:50) ( MsgRcvd 02/18/2017 00:38) Final results Test Result Flag Units (Reference) URINE COLOR YELLOW URINE APPEARANCE SL CLOUDY URINE GLUCOSE NEGATIVE (NEGATIVE) URINE BILIRUBIN 1+ (NEGATIVE) URINE KETONE 1+ (NEGATIVE) URINE SPECIFIC GRAVITY 1.015 (1.010-1.030) URINE PH 5.5 (5.0-8.0) URINE PROTEIN TRACE (NEGATIVE) URINE UROBILINOGEN 0.2 EU/dL (0.2-1.0) URINE NITRITE NEGATIVE (NEGATIVE) URINE BLOOD 2+ (NEGATIVE) URINE LEUK ESTERASE POSITIVE (NEGATIVE) URINE RBC 1-3 rbc/hpf (0-1) URINE WBC 10-15 wbc/hpf (0-1) URINE EPITHELIAL CELLS 1-3 EPI/hpf (0-5) URINE BACTERIA MODERATE (2+ TO 3+) (NONE SEEN) URINE COMMENT CULTURE INDICATED 3+ YEASTURINE CULTURES ARE SET-UP BASED ON THE FOLLOWING CRITERIA:POSITIVE NITRITEPOSITIVE LEUKOCYTE ESTERASEGREATER THAN 10 WHITE BLOOD CELLSMODERATE (2+) OR GREATER BACTERIA CBC w Diff: (ADDI: 02/17/2017 20:25) ( [facility] 02/17/2017 22:18) Final results Test Result Flag Units (Reference) WHITE BLOOD COUNT 27.4 *H K/uL (4.5-11.5) CRITICAL RESULTS CALLEDCalled to Alistair SCHNEIDER 02/17/172056Were 2 patient identifiers used? YWas the result read back? Y RED BLOOD COUNT 4.23 M/uL (4.00-5.20) HEMOGLOBIN 12.1 gm/dL (12.0-16.0) HEMATOCRIT 37.1 % (36.0-46.0) MEAN CELL VOLUME 88 fL (80-100) MEAN CORPUSCULAR HGB 29 pg (26-34) MEAN CORPUSCULAR HGB CONC 33 g/dL (31-37) RED CELL DISTRIBUTION WIDTH 26.6 H % (11.6-14.8) PLATELET COUNT 389 K/uL (150-400) NEUTROPHIL % 84.0 H % (50-75) LYMPH % 12.1 L % (25-40) MONO % 3.6 % (3-14) EOSINOPHIL % 0.2 % (0-4) BASOPHIL % 0.1 % (0-2) POLY % 77 H % (50-75) BAND % 1 % (0-8) LYMPH 16 L % (25-40) MONO 6 % (3-14) EOSINOPHIL % 0 % (0-4) BASOPHIL % 0 % (0-2) METAMYELOCYTE % 0 % (0-1) MYELOCYTE 0 % (0-1) OTHER CELL TYPE 0 POIKILOCYTOSIS 1+ ANISOCYTOSIS 2+ ACANTHOCYTES 1+ CMP: (ADDI: 02/17/2017 20:25) ( MsgRcvd 02/17/2017 21:11) Final results Test Result Flag Units (Reference) GLUCOSE 60 L mg/dL (70-110) BUN 19 H mg/dL (7-18) CREATININE 1.2 mg/dL (0.6-1.3) Estimated GFR 46.55 mL/min Estimated GFR- 56.42 mL/min Note: Persistent reduction over 3 months in eGFR<60 mL/min/1.73 m2 defines CKD. Patients with eGFR values>=60 mL/min/1.73 m2 may also have CKD if evidence ofpersistent proteinuria. Additional information may be foundat www.[email or web address].org. SODIUM 129 L mmol/L (136-145) POTASSIUM 3.7 mmol/L (3.5-5.1) CHLORIDE 94 L mmol/L (98-107) CARBON DIOXIDE 19 L mmol/L (21-32) CALCIUM 9.0 mg/dL (8.5-10.1) TOTAL PROTEIN 7.2 g/dL (6.4-8.2) ALBUMIN 3.0 L g/dL (3.3-5.0) BILIRUBIN, TOTAL 0.9 mg/dL (0.0-1.0) ALKALINE PHOSPHATASE 219 H U/L (46-116) AST (SGOT) 65 H U/L (15-37) ALT (SGPT) 65 U/L (12-78) . Pulse Oximetry: 02/17/2017 20:07 O2 saturation: 100%. (FIO2 - room air). Interpretation: normal. PROGRESS AND PROCEDURES Course of Care: The patient is a pleasant 77-year-old female with past medical history significant for recent abdominal surgery presenting for evaluation of abdominal . Patient was initially seen by Dr. Desir. Plans to follow up with the patient's laboratory studies and imaging. CT scan of the abdomen and pelvis not performed with contrast because of low GFR. Patient is currently resting in bed and in no acute distress. The patient's workup was remarkable for the findings above. Because the patient's significant white count, general surgery was consulted. No further recommendations made in regards to patient's presentation. Do not feel patient is admitted to the hospital at this time. Patient encouraged to follow up with their surgeon. Patient does have urinary tract infection. First dose antibiotic provided while here. Patient also noted to have colitis and will be given Flagyl. Because of the patient's warfarin therapy, unable to provide the patient with Bactrim or ciprofloxacin. We'll be treating the patient with Keflex and Flagyl instead. I discussed with the patient her workup here in the emergency department including diagnosis, home care, follow-up, and return precautions. All questions have been answered. The patient and expressed understanding of these instructions and was agreeable to them. Prior to patient's departure from the emergency department, her repeat examination continues to be reassuring and benign. Do not feel patient has a surgical abdomen. Patient is otherwise stable outpatient candidate. Disposition: Discharged. Condition: good. CLINICAL IMPRESSION Acute abdominal pain. (lower abdomen). Acute infectious colitis (acute). Acute urinary tract infection with cystitis and hematuria. Moderate leukocytosis. INSTRUCTIONS Warnings: GENERAL WARNINGS: Return or contact your physician immediately if your condition worsens or changes unexpectedly, if not improving as expected, or if other problems arise. SPECIFICALLY, return if you develop pain, fever, vomiting, the inability to keep fluids down, blood in vomitus, blood in diarrhea, fainting or lightheadedness. Your Current Medications: CONTINUE TAKING THE FOLLOWING MEDICATIONS: Amitiza Oral : Capsule 8 mcg, 1 capsule BID. Atorvastatin Calcium Oral : 40 mg daily. Carafate Oral : 1 gm 4x a day. Combivent 1 puff BID*. Digoxin Oral : 0.125 mg daily. Gabapentin Oral : 300 mg- 2 tabs 3x a day. Glimepiride Oral : Tablet 4 mg, 1/2 tablet daily. had vicodin 5/325 at 1900*. Lidoderm External : Patch 5 %, 12 hours on, 12 hours off. Losartan Potassium Oral : 50 mg daily. MetFORMIN HCl Oral : Tablet 500 mg, 2 tablets 2x a day. Methylphenidate HCl Oral : Tablet 5 mg, 2 tablets BID. Metoclopramide HCl Oral : 10 mg 4x a day. MiraLax Oral : daily, prn. Omeprazole Oral : 20 mg daily. Ondansetron Oral : Film 4 mg, 1-2 every 4 hrs. OxyCODONE HCl Oral : 5 mg 4x a day. PARoxetine HCl Oral : Tablet 10 mg, 2 tablets daily. Requip Oral : 0.25 mg- 2 tabs at bedtime. Salmeterol Xinafoate Inhalation : 2 puffs 2x a day. Spironolactone Oral : 25 mg daily. Tamsulosin HCl Oral : 0.4 mg 2x a day. Torsemide Oral : 10 mg daily. TraMADol HCl ER Oral : 75mg TID prn pain. TraZODone HCl Oral : 50 mg--- 1 1/2 tabs (75mg) at bedtime. Tylenol Oral : 500mg TID, prn. Warfarin Sodium Oral : 5 mg daily. Prescription Medications: Cephalexin 500 mg: take 1 capsule orally every 8 hours for 10 days. No refill. (disp 30 caps) Flagyl 500 mg: Take 1 tablet orally every 8 hours for 10 days. No refill. Substitution is permissible. (disp 30 each) Follow-up: Return to the emergency department as needed. Follow up with your doctor as scheduled. Reason for referral: recheck today's concerns. Summary of care provided to patient via paper. Screening today revealed the patient's blood pressure to be in the normal range. The patient should follow up with a primary care provider for blood pressure management. Understanding of the discharge instructions verbalized by patient. (Electronically signed by Carmine Rodriguez Dr. 02/18/2017 7:00)
--- NOTE | 2017-02-18 00:03 | ED ORDER SUMMARY ---
..... Patient: TRAVON VIDAL OrderSheet [facility] VisitID: [id number] [address] [place] [address] 77y, F Registration Date/Time: 02/17/2017 ORDER SHEET Weight: 75.2 kg (stated) Allergies: Amiodarone, Cordarone, Cordran, Doxycycline GENERAL ORDERS: CT Abd/Pel w Cont (No) (N/A) Urgent (20:42 02/17/2017 Latha GUERRERO) (Ack 20:45 LMuller) (Cancelled: Other21:34 Latha GUERRERO) CBC w Diff Urgent (20:43 02/17/2017 Latha GUERRERO) (Ack 20:45 LMuller) (20:45 DDean R.N.) CMP Urgent (20:43 02/17/2017 Latha GUERRERO) (Ack 20:45 LMuller) (20:45 DDean R.N.) CT Abd/Pel wo Cont Urgent (21:34 02/17/2017 Latha GUERRERO) (Ack 21:40 LMuller) (22:16 CBradburn R.N.) UA-Culture if indicated Urgent (23:38 02/17/2017 Anil Oleary) (Ack 23:42 LMuller) (23:58 CBradburn R.N.) MEDICATION ORDERS: Keflex PO 500 mg (NOW) (23:45 02/17/2017 Anil Oleary) (Ack 23:47 CBradburn R.N.) (0:00 CBradburn R.N.) IV FLUIDS: IV NS : initial bolus 1000 mL (1000 mL/hr), then none - (NOW) (20:42 02/17/2017 Latha GUERRERO) (Ack 20:45 DDean R.N.) (21:04 DDean R.N.) Dilaudid IV 1 mg (HIGH ALERT MEDICATION, NOW) (20:43 02/17/2017 Latha GUERRERO) (Ack 20:45 DDean R.N.) (21:05 DDean R.N.) Zofran IV 4 mg (NOW) (20:46 02/17/2017 DDean R.N. per protocol) (Ack 20:46 DDean R.N.) (21:04 DDean R.N.) Dilaudid IV 2 mg (HIGH ALERT MEDICATION, NOW) (21:35 02/17/2017 Latha GUERRERO) (21:41 DDean R.N.) Flagyl IV 500 mg/100mL (NOW) (23:42 02/17/2017 Anil Oleary) (Ack 23:47 CBradburn R.N.) (23:59 CBradburn R.N.) Dilaudid IV 1 mg (HIGH ALERT MEDICATION, NOW) (23:46 02/17/2017 Anil Oleary) (Ack 23:47 CBradburn R.N.) (0:00 TELLOradburn R.N.) ORDER SHEET NOTES: [Electronically signed by Leonora Hood R.N. (01:16 02/18/2017)] [Electronically signed by Carmine Rodriguez Dr. (07:00 02/18/2017)] [Electronically locked/signed by Leonora Hood R.N. (01:16 02/18/2017)]
--- NOTE | 2017-02-18 00:03 | ED ORDER SUMMARY ---
..... Patient: TRAVON VIDAL OrderSheet [facility] VisitID: [id number] [address] [place] [address] 77y, F Registration Date/Time: 02/17/2017 ORDER SHEET Weight: 75.2 kg (stated) Allergies: Amiodarone, Cordarone, Cordran, Doxycycline GENERAL ORDERS: CT Abd/Pel w Cont (No) (N/A) Urgent (20:42 02/17/2017 Latha GUERRERO) (Ack 20:45 LMuller) (Cancelled: Other21:34 Latha GUERRERO) CBC w Diff Urgent (20:43 02/17/2017 Latha GUERRERO) (Ack 20:45 LMuller) (20:45 DDean R.N.) CMP Urgent (20:43 02/17/2017 Latha GUERRERO) (Ack 20:45 LMuller) (20:45 DDean R.N.) CT Abd/Pel wo Cont Urgent (21:34 02/17/2017 Latha GUERRERO) (Ack 21:40 LMuller) (22:16 CBradburn R.N.) UA-Culture if indicated Urgent (23:38 02/17/2017 Anil Oleary) (Ack 23:42 LMuller) (23:58 CBradburn R.N.) MEDICATION ORDERS: Keflex PO 500 mg (NOW) (23:45 02/17/2017 Anil Oleary) (Ack 23:47 CBradburn R.N.) (0:00 CBradburn R.N.) IV FLUIDS: IV NS : initial bolus 1000 mL (1000 mL/hr), then none - (NOW) (20:42 02/17/2017 Latha GUERRERO) (Ack 20:45 DDean R.N.) (21:04 DDean R.N.) Dilaudid IV 1 mg (HIGH ALERT MEDICATION, NOW) (20:43 02/17/2017 Latha GUERRERO) (Ack 20:45 DDean R.N.) (21:05 DDean R.N.) Zofran IV 4 mg (NOW) (20:46 02/17/2017 DDean R.N. per protocol) (Ack 20:46 DDean R.N.) (21:04 DDean R.N.) Dilaudid IV 2 mg (HIGH ALERT MEDICATION, NOW) (21:35 02/17/2017 Latha GUERRERO) (21:41 DDean R.N.) Flagyl IV 500 mg/100mL (NOW) (23:42 02/17/2017 Anil Oleary) (Ack 23:47 CBradburn R.N.) (23:59 CBradburn R.N.) Dilaudid IV 1 mg (HIGH ALERT MEDICATION, NOW) (23:46 02/17/2017 Anil Oleary) (Ack 23:47 CBradburn R.N.) (0:00 TELLOradburn R.N.) ORDER SHEET NOTES: [Electronically signed by Leonora Hood R.N. (01:16 02/18/2017)] [Electronically signed by Carmine Rodriguez Dr. (07:00 02/18/2017)] [Electronically locked/signed by Leonora Hood R.N. (01:16 02/18/2017)]
--- NOTE | 2017-02-18 00:03 | ED NURSING NOTES ---
Clinical Report - Nurses [facility] [address] [place] [address] 02/17/2017 19:59 Patient: ANGELINA VIDAL TRIAGE Triage time 2006. Acuity: LEVEL 3. Chief Complaint: ABDOMINAL PAIN, NAUSEA and VOMITING and (1 WEEK POST GALL BLADDER, HAS HAD PAIN AND VOMITING X 4-5 DAYS). 20:07. --20:17 Jossy Mayers R.N. 20:07 02/17/17. BP: 150/108. HR: 66. RR: 18. O2 saturation: 100%. Temp: 98.4 F. Pain level now: 04/03. --20:17 Jossy Mayers R.N. Weight: 75.2 kg stated. Height/Length: 66 inches Per Patient. BMI: 26.8. --20:17 Jossy Mayers R.N. Medications had vicodin 5/325 at 1900. --20:16 Jossy Mayers R.N. Combivent 1 puff BID. --22:46 Jossy Mayers R.N. Carafate Oral 1 gm, 4x a day. Gabapentin Oral 300 mg- 2 tabs, 3x a day. Lidoderm External (Patch 5 %) 12 hours on, 12 hours off. Metoclopramide HCl Oral 10 mg, 4x a day. Ondansetron Oral (Film 4 mg) 1-2 every 4 hrs. OxyCODONE HCl Oral 5 mg, 4x a day. --22:47 Jossy Mayers R.N. Atorvastatin Calcium Oral 40 mg, daily. Glimepiride Oral (Tablet 4 mg) 1/2 tablet, daily. Losartan Potassium Oral 50 mg, daily. Omeprazole Oral 20 mg, daily. Requip Oral 0.25 mg- 2 tabs at bedtime. Tamsulosin HCl Oral 0.4 mg, 2x a day. Torsemide Oral 10 mg, daily. TraMADol HCl ER Oral 75mg TID prn pain . TraZODone HCl Oral 50 mg--- 1 1/2 tabs (75mg) , at bedtime. Tylenol Oral 500mg TID, as needed. Warfarin Sodium Oral 5 mg, daily. --22:47 Jossy Mayers R.N. Amitiza Oral (Capsule 8 mcg) 1 capsule, BID. Digoxin Oral 0.125 mg, daily. MetFORMIN HCl Oral (Tablet 500 mg) 2 tablets, 2x a day. Methylphenidate HCl Oral (Tablet 5 mg) 2 tablets, BID. MiraLax Oral, daily as needed. PARoxetine HCl Oral (Tablet 10 mg) 2 tablets, daily . Salmeterol Xinafoate Inhalation 2 puffs, 2x a day. Spironolactone Oral 25 mg, daily. --22:47 Jossy Mayers R.N. Allergies Amiodarone. Cordarone. --20:16 Jossy Mayers R.N. Cordran. Doxycycline. --20:16 Jossy Mayers R.N. History Arrived by private vehicle. Historian: patient. Accompanied by spouse. Primary physician (brenna romero 1 week ago , PCP-[facility]). The patient has had nausea, vomiting, diarrhea and abdominal pain. SOCIAL HX: Former smoker ( quit was a 2ppd smoker for 30 years). No alcohol use or drug use. --20:17 Jossy Mayers R.N. PROBLEMS: C. Difficile Colitis. Dehydration. Hyponatremia. Leukocytosis. Oral Anticoagulation Therapy. Abnormal EKG. COPD - Chronic Obstructive Pulmonary Disease. Heart Disease. GI Disease. Nephropathy. Cystitis. Ly Catheter Replacement. Hypomagnesemia. Hyperkalemia. Hematuria. Emphysema. Cancer. UTI - Urinary Tract Infection. Atrial Fibrillation. Sleep Apnea. Diabetes Mellitus. Hypertension. Urinary Retention. Aortic Stenosis. --20:15 Jossy Mayers R.N. Bowel Obstruction [RuleOut]. --20:15 Jossy Mayers R.N. The following entry was modified by Angelina Desir MD, 22:08 Reason - duplicate <<STRICKEN ENTRY-- Lung Disease. --16:20 Angelina Desir MD --END STRIKE>>. ADDITIONAL SURGERIES: Aortofemoral Bypass. Appendectomy. Bladder Suspension. Valve Replacement. --20:15 Jossy Mayers R.N. The following entry was struck by Angelina Desir MD, 22:08 Reason - duplicate <<STRICKEN ENTRY-- Previous Abdominal Surgery. --22:08 Angelina Desir MD --END STRIKE>>. Interventions ID band on patient. To treatment room. --20:17 Jossy Myaers R.N. PHYSICAL ASSESSMENT 20:07. To room via wheelchair. Patient gowned. GENERAL / NEURO / PSYCH: Alert. Oriented X 4. Appears in distress. RESPIRATORY: Respirations not labored. CVS: Capillary refill less than 2 seconds. GI / : The patient has had nausea. Emesis noted. Abdominal tenderness. SKIN: Skin is warm and dry. --20:18 Jossy Mayers R.N. NURSING PROGRESS NOTES 20:07. Patient gowned. Head of bed elevated. Reassurance given. Patient identifiers checked. Call light placed in reach. Side rails up. Bed placed in lowest position. Patient ready for evaluation- chart flagged. --20:18 Jossy Mayers R.N. 20:20 02/17/2017 Site #1 started via IV in the left antecubital space with an 20g angiocath, with aseptic technique and good blood return; one attempt. Blood drawn: rainbow set. Labeled in the presence of the patient and sent to the lab. Saline lock flushed with 10 mL saline (ped culture tube). --20:45 Jossy Mayers R.N. 20:20. ( IV start and blood draw). --20:45 Jossy Mayers R.N. WBC: 27.4. Critical value. Verified lab result and patient ID. ED physician notifed of critical value. --20:58 Antoinette Avila R.N. 20:30 02/17/2017 Started bag #1 1000 mL IV Fluids IV NS (Saline); at 1000 mL/hr over 1 hour(s) via site #1 via IV pump. --21:04 Jossy Mayers R.N. 20:38 02/17/2017 Zofran (Ondansetron HCl) IVP 4 mg given over 1 minute(s) via site #1. IV patency established. IV site checked: no pain, redness, or swelling. IV flushed thoroughly pre- and post-medication administration. IVP given by RN. --21:04 Jossy Mayers R.N. 20:39 02/17/2017 Dilaudid (HYDROmorphone HCl PF) IVP 1 mg given over 1 minute(s) via site #1. Sedative warning given to the patient. IV patency established. IV site checked: no pain, redness, or swelling. IV flushed thoroughly pre- and post-medication administration. IVP given by RN. --21:05 Jossy Mayers R.N. 20:40 02/17/17. BP: 131/107. HR: 67. RR: 20. O2 saturation: 100%. Pain level now: 8/10. --21:06 Jossy Mayers R.N. 21:30 02/17/17. BP: 147/74. HR: 66. RR: 18. O2 saturation: 100%. Temp: deferred. Pain level now: 8/10. Additional comments: Pt asking "am I getting anything else" states pain is still 8/10, ERMD notified, meds ordered and given . --21:40 Jossy Mayers R.N. 21:31 02/17/2017 Dilaudid (HYDROmorphone HCl PF) IVP 1 mg given over 1 minute(s) via site #1. IV patency established. IV site checked: no pain, redness, or swelling. IV flushed thoroughly pre- and post-medication administration. IVP given by RN. --21:41 Jossy Mayers R.N. Care transferred and report received (received report from Jossy CRUZ assumed care of pt). --22:17 Leonora Hood R.N. 22:12 02/17/2017 Dilaudid (HYDROmorphone HCl PF) IVP 1 mg given over 1 minute(s) via site #1. IV patency established. IV site checked: no pain, redness, or swelling. IV flushed thoroughly pre- and post-medication administration. IVP given by RN. --22:17 Jossy Mayers R.N. 22:10 02/17/17. BP: 133/44. HR: 66. RR: 20. O2 saturation: 96%. Temp: deferred. Pain level now: 04/03. --22:18 Jossy Mayers R.N. late entry -21:10 Pt states pain is still 10, additional pain meds given. --22:18 Jossy Mayers R.N. 22:27 02/17/2017 IV Fluids IV NS Discontinued: bag #1 infused. Total amount infused: 1000 mL. IV patency established. IV site checked: no pain, redness, or swelling. IV flushed thoroughly. --23:01 Hugh Barry R.N. 23:50 02/17/2017 Keflex (Cephalexin) PO Capsules 500 mg given. Allergies verified and confirmed 5 rights. --00:00 Leonora Hood R.N. 23:53 02/17/2017 Started 500 mg of Flagyl (MetroNIDAZOLE in NaCl) IVPB in bag #1 100 mL; over 1 hour(s) via site #1 via IV pump. Allergies verified and confirmed 5 rights. IV patency established. IV site checked: no pain, redness, or swelling. IV flushed thoroughly pre- and post-medication administration. --23:59 Leonora Hood R.N. 23:54 02/17/2017 Dilaudid (HYDROmorphone HCl PF) IVP 1 mg given over 2 minute(s) via site #1. Allergies verified, confirmed 5 rights and sedative warning given to the patient. IV patency established. IV site checked: no pain, redness, or swelling. IV flushed thoroughly pre- and post-medication administration. IVP given by RN. --00:00 Leonora Hood R.N. The patient reports no complaints and she is calm. Overall patient status is improved- she states feels better. GI / : Abdomen soft and nontender. Bowel sounds within normal limits. SKIN: Skin is warm and dry. Skin color within normal limits. --00:01 Leonora Hood R.N. 00:00 02/18/17. BP: 111/77 taken on the right arm, while lying. HR: 88 (regular and normal rate). RR: 16 (regular and unlabored). O2 saturation: 98%. Temp: deferred. Pain level now: 12/02. --00:01 Leonora Hood R.N. DISPOSITION / DISCHARGE 01:03 02/18/2017 Flagyl IVPB Discontinued: completed upon discharge. Total amount infused: 100 mL. IV patency established. IV site checked: no pain, redness, or swelling. IV flushed thoroughly. --01:03 Leonora Hood R.N. 01:04 02/18/2017 Site #1 removed upon discharge. Catheter intact. Manual pressure and bandage applied. --01:04 Leonora Hood R.N. Departure time: 0110. Condition at departure: improved and stable. ( KEEP APPT WITH SURGEON ON FRIDAY). No learning barriers present. Discharge instructions provided and reviewed with the patient and spouse. Reviewed medication(s) side effects, precautions, dosing and course information. Prescription(s) given to the patient. Reviewed referral to a surgeon for followup. Patient verbalized understanding. Written instructions provided in [place]. The patient was discharged home and accompanied by spouse. She left the Emergency Department in a wheelchair and via private vehicle. Spouse driving. --01:15 Leonora Hodo R.N. 01:10 02/18/17. BP: 111/56 taken on the right arm, while lying. HR: 62 (regular). RR: 18 (regular and unlabored). O2 saturation: 96% on room air. Temp: deferred. Pain level now: 01/01. --01:15 Leonora Hood R.N. Locked/Released at 02/18/2017 1:16 by Leonora Hood R.N.
--- NOTE | 2017-02-18 07:00 | ED MED RECONCILIATION SUMMARY ---
Patient: TRAVON VIDAL Medication Reconciliation Report [facility] VisitID: [id number] [address] [place] [address] 77y, F Registration Date/Time: 02/17/2017 Weight: 75.2 kg Height/Length: 66 in. BMI: 26.8 ALLERGIES: Amiodarone, Cordarone, Cordran, Doxycycline The patient's Home Medications are listed below: CONTINUE TAKING THE FOLLOWING MEDICATIONS: Amitiza Oral (8 mcg) 1 capsule, BID Atorvastatin Calcium Oral 40 mg, daily Carafate Oral 1 gm, 4x a day Combivent 1 puff BID Digoxin Oral 0.125 mg, daily Gabapentin Oral 300 mg- 2 tabs, 3x a day Glimepiride Oral (4 mg) 1/2 tablet, daily had vicodin 5/325 at 1900 Lidoderm External (5 %) 12 hours on, 12 hours off Losartan Potassium Oral 50 mg, daily MetFORMIN HCl Oral (500 mg) 2 tablets, 2x a day Methylphenidate HCl Oral (5 mg) 2 tablets, BID Metoclopramide HCl Oral 10 mg, 4x a day MiraLax Oral, daily Omeprazole Oral 20 mg, daily Ondansetron Oral (4 mg) 1-2 every 4 hrs OxyCODONE HCl Oral 5 mg, 4x a day PARoxetine HCl Oral (10 mg) 2 tablets, daily Requip Oral 0.25 mg- 2 tabs at bedtime Salmeterol Xinafoate Inhalation 2 puffs, 2x a day Spironolactone Oral 25 mg, daily Tamsulosin HCl Oral 0.4 mg, 2x a day Torsemide Oral 10 mg, daily TraMADol HCl ER Oral 75mg TID prn pain TraZODone HCl Oral 50 mg--- 1 1/2 tabs (75mg) , at bedtime Tylenol Oral 500mg TID Warfarin Sodium Oral 5 mg, daily The source(s) of the original Home Medication information: Not obtained. The following Medications were given to the patient in the Emergency Department: IV NS IV Fluids bolus 0, then 1000 mL/hr, administered: 02/17/2017 8:30:00 PM Zofran [IVP] IVP 4 mg, administered: 02/17/2017 8:38:00 PM Dilaudid [IVP] IVP 1 mg, administered: 02/17/2017 8:39:00 PM Dilaudid [IVP] IVP 1 mg, administered: 02/17/2017 9:31:00 PM Dilaudid [IVP] IVP 1 mg, administered: 02/17/2017 10:12:00 PM Flagyl [IVPB] IVPB bolus 0, then 500 mg, administered: 02/17/2017 11:53:00 PM Keflex [PO] PO 500 mg, administered: 02/17/2017 11:50:00 PM Dilaudid [IVP] IVP 1 mg, administered: 02/17/2017 11:54:00 PM The following Medications were prescribed to the patient: Cephalexin 500 mg: take 1 capsule orally every 8 hours for 10 days. No refill.(disp 30 caps) -- Carmine Rodriguez Dr. Flagyl 500 mg: Take 1 tablet orally every 8 hours for 10 days. No refill. Substitution is permissible.(disp 30 each) -- Carmine Rodriguez Dr.
--- NOTE | 2017-02-18 07:00 | ED MAR SUMMARY ---
..... Medication Administration Record [facility] [address] [place] [address] Patient: TRAVON VIDAL Visit ID: [id number] 77y, F Weight: 75.2 kg Height/Length: 66 in BMI: 26.8 ALLERGIES: Amiodarone, Cordarone, Cordran, Doxycycline Start 20:30 02/17/2017 Jossy Mayers R.N., Stop 22:27 02/17/2017 Hugh Barry R.N. Medication Administered: IV NS (SALINE), Dose: IV Fluids over 1 hour(s), Rate: 1000 mL/hr, Dispensed: 1000 mL bag, Site: #1 left AC. Medication Ordered: IV NS : initial bolus 1000 mL (1000 mL/hr), then none - (NOW). Given 20:38 02/17/2017 Jossy Mayers R.N. Medication Administered: ZOFRAN [IVP] (ONDANSETRON HCL), Dose: 4 mg IVP over 1 minute(s), Site: #1 left AC. Medication Ordered: Zofran IV 4 mg (NOW). Given 20:39 02/17/2017 Jossy Mayers R.N. Medication Administered: DILAUDID [IVP] (HYDROMORPHONE HCL PF), Dose: 1 mg IVP over 1 minute(s), Site: #1 left AC. Medication Ordered: Dilaudid IV 1 mg (HIGH ALERT MEDICATION, NOW). Given 21:31 02/17/2017 Jossy Mayers R.N. Medication Administered: DILAUDID [IVP] (HYDROMORPHONE HCL PF), Dose: 1 mg IVP over 1 minute(s), Site: #1 left AC. Medication Ordered: Dilaudid IV 2 mg (HIGH ALERT MEDICATION, NOW). Given 22:12 02/17/2017 Jossy Mayers R.N. Medication Administered: DILAUDID [IVP] (HYDROMORPHONE HCL PF), Dose: 1 mg IVP over 1 minute(s), Site: #1 left AC. Medication Ordered: Dilaudid IV 2 mg (HIGH ALERT MEDICATION, NOW). Given 23:50 02/17/2017 Leonora Hood R.N. Medication Administered: KEFLEX [PO] (CEPHALEXIN), Dose: 500 mg Capsules PO. Medication Ordered: Keflex PO 500 mg (NOW). Start 23:53 02/17/2017 Leonora Hood R.N., Stop 01:03 02/18/2017 Leonora Hood R.N. Medication Administered: FLAGYL [IVPB] (METRONIDAZOLE IN NACL), Dose: 500 mg IVPB over 1 hour(s), Dispensed: 100 mL bag, Site: #1 left AC. Medication Ordered: Flagyl IV 500 mg/100mL (NOW). Given 23:54 02/17/2017 Leonora Hood R.N. Medication Administered: DILAUDID [IVP] (HYDROMORPHONE HCL PF), Dose: 1 mg IVP over 2 minute(s), Site: #1 left AC. Medication Ordered: Dilaudid IV 1 mg (HIGH ALERT MEDICATION, NOW).
--- NOTE | 2017-02-18 07:00 | ED DISCHARGE INSTRUCTIONS ---
Patient: TRAVON VIDAL General Instructions [facility] VisitID: [id number] [address] [place] [address] 77y, F Registration Date/Time: 02/17/2017 Acute abdominal pain. (lower abdomen). Acute infectious colitis (acute). Acute urinary tract infection with cystitis and hematuria. Moderate leukocytosis. INSTRUCTIONS Warnings: GENERAL WARNINGS: Return or contact your physician immediately if your condition worsens or changes unexpectedly, if not improving as expected, or if other problems arise. SPECIFICALLY, return if you develop pain, fever, vomiting, the inability to keep fluids down, blood in vomitus, blood in diarrhea, fainting or lightheadedness. Your Current Medications: CONTINUE TAKING THE FOLLOWING MEDICATIONS: Amitiza Oral : Capsule 8 mcg, 1 capsule BID. Atorvastatin Calcium Oral : 40 mg daily. Carafate Oral : 1 gm 4x a day. Combivent 1 puff BID*. Digoxin Oral : 0.125 mg daily. Gabapentin Oral : 300 mg- 2 tabs 3x a day. Glimepiride Oral : Tablet 4 mg, 1/2 tablet daily. had vicodin 5/325 at 1900*. Lidoderm External : Patch 5 %, 12 hours on, 12 hours off. Losartan Potassium Oral : 50 mg daily. MetFORMIN HCl Oral : Tablet 500 mg, 2 tablets 2x a day. Methylphenidate HCl Oral : Tablet 5 mg, 2 tablets BID. Metoclopramide HCl Oral : 10 mg 4x a day. MiraLax Oral : daily, prn. Omeprazole Oral : 20 mg daily. Ondansetron Oral : Film 4 mg, 1-2 every 4 hrs. OxyCODONE HCl Oral : 5 mg 4x a day. PARoxetine HCl Oral : Tablet 10 mg, 2 tablets daily. Requip Oral : 0.25 mg- 2 tabs at bedtime. Salmeterol Xinafoate Inhalation : 2 puffs 2x a day. Spironolactone Oral : 25 mg daily. Tamsulosin HCl Oral : 0.4 mg 2x a day. Torsemide Oral : 10 mg daily. TraMADol HCl ER Oral : 75mg TID prn pain. TraZODone HCl Oral : 50 mg--- 1 1/2 tabs (75mg) at bedtime. Tylenol Oral : 500mg TID, prn. Warfarin Sodium Oral : 5 mg daily. Prescription Medications: Cephalexin 500 mg: take 1 capsule orally every 8 hours for 10 days. No refill. (disp 30 caps) Flagyl 500 mg: Take 1 tablet orally every 8 hours for 10 days. No refill. Substitution is permissible. (disp 30 each) Follow-up: Return to the emergency department as needed. Follow up with your doctor as scheduled. Reason for referral: recheck today's concerns. Summary of care provided to patient via paper. Screening today revealed the patient's blood pressure to be in the normal range. The patient should follow up with a primary care provider for blood pressure management. Understanding of the discharge instructions verbalized by patient. ADDITIONAL INFORMATION Abdominal Pain, Unknown Cause (Female) The exact cause of your abdominal (stomach) pain is not certain. This does not mean that this is something to worry about, or the right tests were not done. Everyone likes to know the exact cause of the problem, but sometimes with abdominal pain, there is no clear-cut cause, and this could be a good thing. The good news is that your symptoms can be treated, and you will feel better. Your condition does not seem serious now; however, sometimes the signs of a serious problem may take more time to appear. For this reason,it is important for you to watch for any new symptoms, problems,or worsening of your condition. Over the next few days, the abdominal pain may come and go, or be continuous. Other common symptoms can include nausea and vomiting. Sometimes it can be difficult to tell if you feel nauseous, you may just feel bad and not associate that feeling with nausea. Constipation, diarrhea, and a fever may go along with the pain. The pain may continue even if treated correctly over the following days. Depending on how things go, sometimes the cause can become clear and may require further or different treatment. Additional evaluations, medications, or tests may be needed. Home care Your health care provider may prescribe medications for pain, symptoms, or an infection. Follow the health care provider's instructions for taking these medications. General care Rest until your next exam. No strenuous activities. Try to find positions that ease discomfort. A small pillow placed on the abdomen may help relieve pain. Something warm on your abdomen (such as a heating pad) may help, but be careful not to burn yourself. Diet Do not force yourself to eat, especially if having cramps, vomiting, or diarrhea. Water is important so you do not get dehydrated. Soup may also be good. Sports drinks may also help, especially if they are not too acidic. Make sure you don't drink sugary drinks as this can make things worse. Take liquids in small amounts. Do not guzzle them. Caffeine sometimes makes the pain and cramping worse. Avoid dairy products if you have vomiting or diarrhea. Don't eat large amounts at a time. Wait a few minutes between bites. Eat a diet low in fiber (called a low-residue diet). Foods allowed include refined breads, white rice, fruit and vegetable juices without pulp, tender meats. These foods will pass more easily through the intestine. Avoid whole-grain foods, whole fruits and vegetables, meats, seeds and nuts, fried or fatty foods, dairy, alcohol and spicy foods until your symptoms go away. Follow-up care Follow up with your health care provider as instructed, or if your pain does not begin to improve in the next 24 hours. When to seek medical care Seek prompt medical care if any of the following occur: Pain gets worse or moves to the right lower abdomen New or worsening vomiting or diarrhea Swelling of the abdomen Unable to pass stool for more than three days Fever of 100.4F (38C) or higher, or as directed by your healthcare provider. Blood in vomit or bowel movements (dark red or black color) Jaundice (yellow color of eyes and skin) Weakness, dizziness Chest, arm, back, neck or jaw pain Unexpected vaginal bleeding or missed period Call 911 Call emergency services if any of the following occur: Trouble breathing Confusion Fainting or loss of consciousness Rapid heart rate Seizure Bladder Infection,Female (Adult) A bladder infection ("cystitis" or "UTI") usually causes a constant urge to urinate and a burning when passing urine. Urine may be cloudy, smelly or dark. There may be pain in the lower abdomen. A bladder infection occurs when bacteria from the vaginal area enter the bladder opening (urethra). This can occur from sexual intercourse, wearing tight clothing, dehydration and other factors. Home Care: Drink lots of fluids (at least 6-8 glasses a day, unless you must restrict fluids for other medical reasons). This will force the medicine into your urinary system and flush the bacteria out of your body. Avoid sexual intercourse until your symptoms are gone. Avoid caffeine, alcohol and spicy foods. These can irritate the bladder. A bladder infection is treated with antibiotics. You may also be given Pyridium (generic = phenazopyridine) to reduce the burning sensation. This medicine will cause your urine to become a bright orange color. The orange urine may stain clothing. You may wear a pad or panty-liner to protect clothing. Preventing Future Infections: Always wipe from front to back after a bowel movement. Keep the genital area clean and dry. Drink plenty of fluids each day to avoid dehydration. Both sexual partners should wash before intercourse. Urinate right after intercourse to flush out the bladder. Wear cotton underwear and cotton-lined panty hose; avoid tight-fitting pants. If you are on control pills and are having frequent bladder infections, discuss with your doctor. Follow Up: Return to this facility or see your doctor if ALL symptoms are not gone after three days of treatment. Get Prompt Medical Attention if any of the following occur: Fever of 100.4F (38C) or higher, or as directed by your healthcare provider No improvement by the third day of treatment Increasing back or abdominal pain Repeated vomiting; unable to keep medicine down Weakness, dizziness or fainting Vaginal discharge Pain, redness or swelling in the labia (outer vaginal area) Cephalexin Monohydrate Oral tablet What is this medicine? CEPHALEXIN (sef a CHARLENE in) is a cephalosporin antibiotic. It is used to treat certain kinds of bacterial infections It will not work for colds, flu, or other viral infections. How should I use this medicine? Take this medicine by mouth with a full glass of water. Follow the directions on the prescription label. This medicine can be taken with or without food. Take your medicine at regular intervals. Do not take your medicine more often than directed. Take all of your medicine as directed even if you think you are better. Do not skip doses or stop your medicine early. Talk to your medical facilities section director regarding the use of this medicine in children. While this drug may be prescribed for selected conditions, precautions do apply. What side effects may I notice from receiving this medicine? Side effects that you should report to your doctor or health health care assistant as soon as possible: allergic reactions like skin rash, itching or hives, swelling of the face, lips, or tongue breathing problems pain or trouble passing urine redness, blistering, peeling or loosening of the skin, including inside the mouth severe or watery diarrhea unusually weak or tired yellowing of the eyes, skin Side effects that usually do not require medical attention (report to your doctor or health health care assistant if they continue or are bothersome): gas or heartburn genital or anal irritation headache joint or muscle pain nausea, vomiting What may interact with this medicine? probenecid some other antibiotics What if I miss a dose? If you miss a dose, take it as soon as you can. If it is almost time for your next dose, take only that dose. Do not take double or extra doses. There should be at least 4 to 6 hours between doses. Where should I keep my medicine? Keep out of the reach of children. Store at room temperature between 59 and 86 degrees F (15 and 30 degrees C). Throw away any unused medicine after the expiration date. What should I tell my health care provider before I take this medicine? They need to know if you have any of these conditions: kidney disease stomach or intestine problems, especially colitis an unusual or allergic reaction to cephalexin, other cephalosporins, penicillins, other antibiotics, medicines, foods, dyes or preservatives or trying to get breast-feeding What should I watch for while using this medicine? Tell your doctor or health health care assistant if your symptoms do not begin to improve in a few days. Do not treat diarrhea with over the counter products. Contact your doctor if you have diarrhea that lasts more than 2 days or if it is severe and watery. If you have diabetes, you may get a false-positive result for sugar in your urine. Check with your doctor or health health care assistant. Metronidazole Oral tablet What is this medicine? METRONIDAZOLE (me troe NI da zole) is an antiinfective. It is used to treat certain kinds of bacterial and protozoal infections. It will not work for colds, flu, or other viral infections. How should I use this medicine? Take this medicine by mouth with a full glass of water. Follow the directions on the prescription label. Take your medicine at regular intervals. Do not take your medicine more often than directed. Take all of your medicine as directed even if you think you are better. Do not skip doses or stop your medicine early. Talk to your medical facilities section director regarding the use of this medicine in children. Special care may be needed. What side effects may I notice from receiving this medicine? Side effects that you should report to your doctor or health health care assistant as soon as possible: allergic reactions like skin rash or hives, swelling of the face, lips, or tongue confusion, clumsiness difficulty speaking discolored or sore mouth dizziness fever, infection numbness, tingling, pain or weakness in the hands or feet trouble passing urine or change in the amount of urine redness, blistering, peeling or loosening of the skin, including inside the mouth seizures unusually weak or tired vaginal irritation, dryness, or discharge Side effects that usually do not require medical attention (report to your doctor or health health care assistant if they continue or are bothersome): diarrhea headache irritability metallic taste nausea stomach pain or cramps trouble sleeping What may interact with this medicine? Do not take this medicine with any of the following medications: alcohol or any product that contains alcohol amprenavir oral solution cisapride disulfiram dofetilide dronedarone paclitaxel injection pimozide ritonavir oral solution sertraline oral solution sulfamethoxazole-trimethoprim injection thioridazine ziprasidone This medicine may also interact with the following medications: cimetidine lithium other medicines that prolong the QT interval (cause an abnormal heart rhythm) phenobarbital phenytoin warfarin What if I miss a dose? If you miss a dose, take it as soon as you can. If it is almost time for your next dose, take only that dose. Do not take double or extra doses. Where should I keep my medicine? Keep out of the reach of children. Store at room temperature below 25 degrees C (77 degrees F). Protect from light. Keep container tightly closed. Throw away any unused medicine after the expiration date. What should I tell my health care provider before I take this medicine? They need to know if you have any of these conditions: anemia or other blood disorders disease of the nervous system fungal or yeast infection if you drink alcohol containing drinks liver disease seizures an unusual or allergic reaction to metronidazole, or other medicines, foods, dyes, or preservatives or trying to get breast-feeding What should I watch for while using this medicine? Tell your doctor or health health care assistant if your symptoms do not improve or if they get worse. You may get drowsy or dizzy. Do not drive, use machinery, or do anything that needs mental alertness until you know how this medicine affects you. Do not stand or sit up quickly, especially if you are an older patient. This reduces the risk of dizzy or fainting spells. Avoid alcoholic drinks while you are taking this medicine and for three days afterward. Alcohol may make you feel dizzy, sick, or flushed. If you are being treated for a sexually transmitted disease, avoid sexual contact until you have finished your treatment. Your sexual partner may also need treatment. You have been given the following additional information: Abdominal Pain, Unknown Cause, (Female) Bladder Infection, Female (Adult) Cephalexin Monohydrate Oral tablet Metronidazole Oral tablet (Electronically signed by Carmine Rodriguez Dr. 02/18/2017 7:00)
--- NOTE | 2017-02-18 07:00 | ED MAR SUMMARY ---
..... Medication Administration Record [facility] [address] [place] [address] Patient: TRAVON VIDAL Visit ID: [id number] 77y, F Weight: 75.2 kg Height/Length: 66 in BMI: 26.8 ALLERGIES: Amiodarone, Cordarone, Cordran, Doxycycline Start 20:30 02/17/2017 Jossy Mayers R.N., Stop 22:27 02/17/2017 Hugh Barry R.N. Medication Administered: IV NS (SALINE), Dose: IV Fluids over 1 hour(s), Rate: 1000 mL/hr, Dispensed: 1000 mL bag, Site: #1 left AC. Medication Ordered: IV NS : initial bolus 1000 mL (1000 mL/hr), then none - (NOW). Given 20:38 02/17/2017 Jossy Mayers R.N. Medication Administered: ZOFRAN [IVP] (ONDANSETRON HCL), Dose: 4 mg IVP over 1 minute(s), Site: #1 left AC. Medication Ordered: Zofran IV 4 mg (NOW). Given 20:39 02/17/2017 Jossy Mayers R.N. Medication Administered: DILAUDID [IVP] (HYDROMORPHONE HCL PF), Dose: 1 mg IVP over 1 minute(s), Site: #1 left AC. Medication Ordered: Dilaudid IV 1 mg (HIGH ALERT MEDICATION, NOW). Given 21:31 02/17/2017 Jossy Mayers R.N. Medication Administered: DILAUDID [IVP] (HYDROMORPHONE HCL PF), Dose: 1 mg IVP over 1 minute(s), Site: #1 left AC. Medication Ordered: Dilaudid IV 2 mg (HIGH ALERT MEDICATION, NOW). Given 22:12 02/17/2017 Jossy Mayers R.N. Medication Administered: DILAUDID [IVP] (HYDROMORPHONE HCL PF), Dose: 1 mg IVP over 1 minute(s), Site: #1 left AC. Medication Ordered: Dilaudid IV 2 mg (HIGH ALERT MEDICATION, NOW). Given 23:50 02/17/2017 Leonora Hood R.N. Medication Administered: KEFLEX [PO] (CEPHALEXIN), Dose: 500 mg Capsules PO. Medication Ordered: Keflex PO 500 mg (NOW). Start 23:53 02/17/2017 Leonora Hood R.N., Stop 01:03 02/18/2017 Leonora Hood R.N. Medication Administered: FLAGYL [IVPB] (METRONIDAZOLE IN NACL), Dose: 500 mg IVPB over 1 hour(s), Dispensed: 100 mL bag, Site: #1 left AC. Medication Ordered: Flagyl IV 500 mg/100mL (NOW). Given 23:54 02/17/2017 Leonora oHod R.N. Medication Administered: DILAUDID [IVP] (HYDROMORPHONE HCL PF), Dose: 1 mg IVP over 2 minute(s), Site: #1 left AC. Medication Ordered: Dilaudid IV 1 mg (HIGH ALERT MEDICATION, NOW).
== END 2017-02-18 01:10 | disposition home or self-care (01) ==
LOC: ED SRH 19:58
DX: A09 Infectious gastroenteritis and colitis, unspecified (principal); N30.01 Acute cystitis with hematuria; D72.829 Elevated white blood cell count, unspecified; R10.30 Lower abdominal pain, unspecified; Z79.01 Long term (current) use of anticoagulants; J44.9 Chronic obstructive pulmonary disease, unspecified; E11.9 Type 2 diabetes mellitus without complications; I10 Essential (primary) hypertension; I35.0 Nonrheumatic aortic (valve) stenosis; Z88.8 Allergy status to other drugs, medicaments and biological substances; Z88.1 Allergy status to other antibiotic agents
CPT/HCPCS: 90004; 90070; 90100; 90469; 91643; 95059

== ENCOUNTER 2017-02-21 00:41 | Emergency (ER) | payer OTHER ==
--- NOTE | 2017-02-21 04:45 | ED NURSING NOTES ---
Clinical Report - Nurses [facility] [address] [place] [address] 02/21/2017 0:40 Patient: TRAVON VIDAL TRIAGE Triage time 00:44. Chief Complaint: FALL (weakness). --00:51 Antoinette Avila R.N. 00:44 02/21/17. BP: 124/87. HR: 72. RR: 14 (regular and unlabored). O2 saturation: 100% on room air. Temp: 97.5 F (oral). Pain level now: 010. --00:51 Antoinette Avila R.N. Weight: 73 kg stated. Height/Length: 66 inches Per Patient. BMI: 26. --00:51 Antoinette Avila R.N. Medications Amitiza Oral (Capsule 8 mcg) 1 capsule, BID. Atorvastatin Calcium Oral 40 mg, daily. Carafate Oral 1 gm, 4x a day. Combivent 1 puff BID. Digoxin Oral 0.125 mg, daily. Gabapentin Oral 300 mg- 2 tabs, 3x a day. Glimepiride Oral (Tablet 4 mg) 1/2 tablet, daily. had vicodin 5/325 at 1900. Lidoderm External (Patch 5 %) 12 hours on, 12 hours off. Losartan Potassium Oral 50 mg, daily. MetFORMIN HCl Oral (Tablet 500 mg) 2 tablets, 2x a day. Methylphenidate HCl Oral (Tablet 5 mg) 2 tablets, BID. Metoclopramide HCl Oral 10 mg, 4x a day. MiraLax Oral, daily as needed. Omeprazole Oral 20 mg, daily. Ondansetron Oral (Film 4 mg) 1-2 every 4 hrs. OxyCODONE HCl Oral 5 mg, 4x a day. PARoxetine HCl Oral (Tablet 10 mg) 2 tablets, daily . --00:49 Antoinette Avila R.N. Requip Oral 0.25 mg- 2 tabs at bedtime. Salmeterol Xinafoate Inhalation 2 puffs, 2x a day. Spironolactone Oral 25 mg, daily. Tamsulosin HCl Oral 0.4 mg, 2x a day. Torsemide Oral 10 mg, daily. TraMADol HCl ER Oral 75mg TID prn pain . TraZODone HCl Oral 50 mg--- 1 1/2 tabs (75mg) , at bedtime. Tylenol Oral 500mg TID, as needed. Warfarin Sodium Oral 5 mg, daily. --00:49 Antoinette Avila R.N. 2 antibiotic ( states he got call from [facility] today with need to change abx). --00:50 Antoinette Avila R.N. Allergies Amiodarone. Cordarone. Cordran. Doxycycline. --00:49 Antoinette Avila R.N. History Arrived by private vehicle. Historian: patient and family. Primary physician (Herb). ( Pt had gall bladder surgery on 02-10-17. pt's reports that pt rolled over and fell out of bed tonight. reports that her voice was slurred). This occurred just prior to arrival and today. Occurred at home. No loss of consciousness. --00:51 Antoinette Avila R.N. PHYSICAL ASSESSMENT To room via wheelchair. GENERAL / NEURO / PSYCH: Alert. Oriented X 4. Appears in no acute distress. CVS: Capillary refill less than 2 seconds. SKIN: Skin intact. Skin is warm and dry. --00:52 Antoinette Avila R.N. NURSING PROGRESS NOTES Two patient identifiers checked. Call light placed in reach. Side rails up x 1. Bed placed in lowest position. Brakes of bed on. --00:52 Antoinette Avila R.N. Patient ready for evaluation- chart flagged. --00:52 Antoinette Avila R.N. Patient gowned. --01:06 Antoinette Avila R.N. EKG time: (005). EKG was ordered, performed by a tech and shown to the ED physician. --01:09 Brodie Ga, ER Principal Network Architect EKG time: (0104). EKG was ordered, performed by a tech and shown to the ED physician. posterior. --01:10 Brodie Ga, ER Principal Network Architect 01:41 02/21/2017 Site #1 started via IV in the right forearm with an 20g angiocath, with aseptic technique and good blood return; one attempt. Blood drawn: rainbow set. Labeled in the presence of the patient and sent to the lab. Saline lock flushed with 10 mL saline. --01:41 Antoinette Avila R.N. 01:48 02/21/2017 Started bag #1 1000 mL IV Fluids IV NS (Saline); bolus of 500 mL over 30 minute(s) then at 10 mL/hr via site #1 via IV pump. Allergies verified and confirmed 5 rights. IV patency established. IV site checked: no pain, redness, or swelling. IV flushed thoroughly pre- and post-medication administration. --01:48 Antoinette Avila R.N. 02:13 02/21/17. Critical value relayed to ED by Astrid. Critical value received by NANCY Johnson. Glucose: 34. ED physician and charge nurse notifed of critical value. --02:13 Elizabeth Melissa R.N. 02:24 02/21/2017 D-50 IVP 25 gm given over 2 minute(s) via site #1. Allergies verified and confirmed 5 rights. IV patency established. IV site checked: no pain, redness, or swelling. IV flushed thoroughly pre- and post-medication administration. IVP given by RN. --02:24 Elizabeth Melissa R.N. ( Gave patient (2) [place] Juice boxes and a half of sandwhich). --02:30 Vanessa Cedeno ( Patient had a loose green bowel movement on the commode.). --03:17 Vanessa Cedeno Point of care testing: performed by nurse. Glucose: 112. Result shown to the ED physician. --03:20 Antoinette Avila R.N. 03:20 02/21/17. BP: 149/84. HR: 77. RR: 22. O2 saturation: 100% on room air. Perry-Dahl pain scale: 4/10. --03:21 Antoinette Avila R.N. Point of care testing: performed by nurse. Glucose: 151 0415. Orders were not received. --04:28 Leonroa Hood R.N. DISPOSITION / DISCHARGE 05:00 02/21/17. BP: 114/59. HR: 86. RR: 24 (regular and unlabored). O2 saturation: 100% on room air. Temp: 98.8 F (oral). Perry-Dahl pain scale: 10. --05:06 Antoinette Avila R.N. 05:00 02/21/2017 Site #1 removed upon discharge. Catheter intact. Manual pressure and bandage applied. --05:06 Antoinette Avila R.N. Condition at departure: stable. No learning barriers present. Discharge instructions provided and reviewed with the patient and spouse. Patient and spouse verbalized understanding. Written instructions provided in [place]. The patient was discharged home and accompanied by spouse. She left the Emergency Department ambulatory and via private vehicle. Spouse driving. --05:06 Antoinette Avila R.N. Locked/Released at 02/21/2017 5:08 by Antoinette Avila R.N.
--- NOTE | 2017-02-21 04:45 | ED ORDER SUMMARY ---
..... Patient: TRAVON VIDAL OrderSheet M[facility] With [facility] VisitID: [id number] [place] [address] 77y, F Registration Date/Time: 02/21/2017 ORDER SHEET Weight: 73.0 kg (stated) Allergies: Amiodarone, Cordarone, Cordran, Doxycycline GENERAL ORDERS: Chest 1V Urgent (01:02/21/2017 Anil Oleary) (Ack 1:13 OSnell) (1:48 RCollier R.N.) (1:48 GUnger) Gallery Assistant (Continuous) (weakness) (:02/21/2017 Anil Oleary) (Ack 1:12 OSnell) (1:41 RCollier R.N.) CBC w Diff Urgent (:02/21/2017 Anil Oleary) (Ack 1:11 OSnell) (1:41 RCollier R.N.) CMP Urgent (01:02/21/2017 Anil Oleary) (Ack 1:11 OSnell) (1:41 RCollier R.N.) UA-Culture if indicated Urgent (01:02/21/2017 Anil Oleary) (Ack 1:11 OSnell) Lactate, Serum Urgent (:02/21/2017 Anil Oleary) (Ack 1:11 OSnell) (1:41 RCollier R.N.) TSH Urgent (:02/21/2017 Anil Oleary) (Ack 1:12 OSnell) (1:41 RCollier R.N.) Pulse oximeter (:02/21/2017 Anil Oleary) (Ack 1:12 OSnell) (1:41 RCollier R.N.) EKG - ER Stat (:02/21/2017 Karen ER Slackman verbal order read back to Anil Oleary) (1:10 CHaglouise ER Slackman) EKG - ER Repeat Stat (:02/21/2017 Karen ER Slackman verbal order read back to Anil Oleary) (1:10 CHaglouise ER Slackman) - (food and juice) (02:22 02/21/2017 Anil Oleary) (2:28 OSnell) POC Glucose (0315) (02:35 02/21/2017 Anil Oleary) (3:37 Roz R.NRadha) MEDICATION ORDERS: IV FLUIDS: IV NS : initial bolus 500 mL (1000 mL/hr), then none - for X1 (NOW) (01:10 02/21/2017 Anil Oleary) (Ack 1:26 Roz R.N.) (1:48 Roz R.NRadha) D-50 IV 1 amp (HIGH ALERT MEDICATION, NOW) (02:15 02/21/2017 Anil Oleary) (Ack 2:18 Brandi R.N.) (2:24 Brandi R.N.) ORDER SHEET NOTES: [Electronically signed by Antoinette Avila R.N. (05:08 02/21/2017)] [Electronically signed by Carmine Rodriguez Dr. (06:25 02/22/2017)] [Electronically locked/signed by Antoinette Avila R.N. (05:08 02/21/2017)]
--- NOTE | 2017-02-21 04:45 | ED CLINICAL REPORT ---
Clinical Report - Physicians/Mid Levels [facility] [address] [place] [address] 02/21/2017 0:40 Patient: TRAVON VIDAL Time Seen: 0110. Arrived- By private vehicle. Historian- patient. HISTORY OF PRESENT ILLNESS Chief Complaint: NEAR-SYNCOPE. Is no longer unconscious. She has recovered. It was abrupt in onset and has been constant. This occurred today. Event was witnessed. At time of event, she was sitting. The patient felt faint. The patient had preceding symptoms of light-headedness. The episode lasted minutes. No injuries noted. She currently has constant, generalized weakness. (generalized confusion. no focal weakness. post surgical pain improved. also with UTI. Called to get a different abx. no pain or injury reported to the head, neck, chest, abdomen, back, pelvis, or other extremities.). Similar symptoms previously: None. Recent medical care: The patient was seen recently in the emergency department (Recently had gallbladder surgery. Has not been eating as much recently. On Glyburide.). REVIEW OF SYSTEMS No fever or skin rash. All systems otherwise negative, except as recorded above. PAST HISTORY See nurses notes. Medications: 2 antibiotic ( states he got call from E[facility] today with need to change abx). Requip Oral 0.25 mg- 2 tabs at bedtime. Salmeterol Xinafoate Inhalation 2 puffs, 2x a day. Spironolactone Oral 25 mg, daily. Tamsulosin HCl Oral 0.4 mg, 2x a day. Torsemide Oral 10 mg, daily. TraMADol HCl ER Oral 75mg TID prn pain . TraZODone HCl Oral 50 mg--- 1 1/2 tabs (75mg) , at bedtime. Tylenol Oral 500mg TID, as needed. Warfarin Sodium Oral 5 mg, daily. Amitiza Oral (Capsule 8 mcg) 1 capsule, BID. Atorvastatin Calcium Oral 40 mg, daily. Carafate Oral 1 gm, 4x a day. Combivent 1 puff BID. Digoxin Oral 0.125 mg, daily. Gabapentin Oral 300 mg- 2 tabs, 3x a day. Glimepiride Oral (Tablet 4 mg) 1/2 tablet, daily. had vicodin 5/325 at 1900. Lidoderm External (Patch 5 %) 12 hours on, 12 hours off. Losartan Potassium Oral 50 mg, daily. MetFORMIN HCl Oral (Tablet 500 mg) 2 tablets, 2x a day. Methylphenidate HCl Oral (Tablet 5 mg) 2 tablets, BID. Metoclopramide HCl Oral 10 mg, 4x a day. MiraLax Oral, daily as needed. Omeprazole Oral 20 mg, daily. Ondansetron Oral (Film 4 mg) 1-2 every 4 hrs. OxyCODONE HCl Oral 5 mg, 4x a day. PARoxetine HCl Oral (Tablet 10 mg) 2 tablets, daily . Allergies: Amiodarone. Cordarone. Cordran. Doxycycline. SOCIAL HISTORY Never smoker. No alcohol use or drug use. Is a local resident. ADDITIONAL NOTES The nursing notes have been reviewed. PHYSICAL EXAM Vital Signs: 02/21/2017 00:44 BP: 124/87. HR: 72. RR: 14. O2 saturation: 100%. Temp: 97.5 F. Pain level now: 0/10. Blood pressure normal. Oxygen saturation normal. Appearance: Alert. No acute distress. Eyes: Pupils equal, round and reactive to light. No nystagmus. Extraocular movements normal. ENT: Normal ENT inspection. TM's normal. Moist mucous membranes. Pharynx normal. Neck: Normal inspection. Neck supple. CVS: Normal heart rate and rhythm. Heart sounds normal. Pulses normal. Respiratory: No respiratory distress. Breath sounds normal. Abdomen: Soft and nontender. No organomegaly. (well healing anterior abdominal scars consistent with recent surgery. Wounds are c/d/i.). Skin: Skin warm and dry. Normal skin color. No rash. Normal skin turgor. Extremities: Extremities exhibit normal ROM. No lower extremity edema. Neuro: Alert. Oriented X 3. Mood/affect normal. Speech normal. Cranial nerves normal (as tested). No cerebellar findings. No motor deficit. No sensory deficit. LABS, X-RAYS, AND EKG EKG: Atrial fibrillation (wide-complex) (73). Wide QRS- (166). RBBB. Normal QT. Moderate ST depression in lead V2, V3, V4, V5 and V6. EKG unchanged when compared with prior EKG. (December 13, 2016). The study has been interpreted contemporaneously. The study has been independently viewed by me. Artifact present. EKG #2: Atrial fibrillation (75). posterior EGK without ST segment elevation or depression. The study has been interpreted contemporaneously. The study has been independently viewed by me. The EKG appears to be a good tracing. Chest X-ray: No acute disease. Cardiomegaly. Normal lung markings present. No infiltrate. (no acute cardiopulmonary disease. cardiomegally without signs of failure. negative for acute findings.). Views: PA. The X-rays were independently viewed by me and interpreted contemporaneously by me. Laboratory Tests: CBC w Diff: (ADDI: 02/21/2017 01:36) [facility] 01[facility]47[facility] Final results Test Result Flag Units (Reference) WHITE BLOOD COUNT 19.9 # H K/uL (4.5-11.5) RED BLOOD COUNT 4.33 M/uL (4.00-5.20) HEMOGLOBIN 12.4 gm/dL (12.0-16.0) HEMATOCRIT 38.2 % (36.0-46.0) MEAN CELL VOLUME 88 fL (80-100) MEAN CORPUSCULAR HGB 29 pg (26-34) MEAN CORPUSCULAR HGB CONC 33 g/dL (31-37) RED CELL DISTRIBUTION WIDTH 26.5 H % (11.6-14.8) PLATELET COUNT 434 H K/uL (150-400) NEUTROPHIL % 84.8 H % (50-75) LYMPH % 13.4 L % (25-40) MONO % 1.2 L % (3-14) EOSINOPHIL % 0.5 % (0-4) BASOPHIL % 0.1 % (0-2) Lactate, Serum: (ADDI: 02/21/2017 01:36) ( [facility] 02/21/2017 02:05) Final results Test Result Flag Units (Reference) LACTIC ACID 1.5 mmol/L (0.4-2.0) CMP: (ADDI: 02/21/2017 01:36) ( [facility] 02/21/2017 02:13) Final results Test Result Flag Units (Reference) GLUCOSE 34 *L mg/dL (70-110) CRITICAL RESULTS CALLEDCalled to MERCEDES SIDDIQUI RN 02/21/17 0212Were 2 patient identifiers used? YWas the result read back? Y BUN 10 mg/dL (7-18) CREATININE 1.0 mg/dL (0.6-1.3) Estimated GFR 57.45 mL/min Estimated GFR- >60 mL/min Note: Persistent reduction over 3 months in eGFR<60 mL/min/1.73 m2 defines CKD. Patients with eGFR values>=60 mL/min/1.73 m2 may also have CKD if evidence ofpersistent proteinuria. Additional information may be foundat www.kidney.org. SODIUM 134 L mmol/L (136-145) POTASSIUM 3.5 mmol/L (3.5-5.1) CHLORIDE 98 mmol/L (98-107) CARBON DIOXIDE 23 mmol/L (21-32) CALCIUM 8.9 mg/dL (8.5-10.1) TOTAL PROTEIN 7.3 g/dL (6.4-8.2) ALBUMIN 3.0 L g/dL (3.3-5.0) BILIRUBIN, TOTAL 0.8 mg/dL (0.0-1.0) ALKALINE PHOSPHATASE 214 H U/L (46-116) AST (SGOT) 79 H U/L (15-37) ALT (SGPT) 70 U/L (12-78) THYROID STIMULATING HORMONE 3.907 H uIU/mL (0.30-3.74) . PROGRESS AND PROCEDURES Course of Care: The Patient Is a Pleasant 77-year-old Female with past Medical History Significant for Diabetes and Recent Cholecystectomy Presenting for Evaluation of Altered Mental Status. At This Time Differential Diagnosis Includes Potentially Abnormalities Versus Infectious Etiology. Patient Is Agreeable to the Treatment and Plan. Patient Is Resting in Bed and in No Acute Distress. Patient Appears Nontoxic. The Patient's Workup Was Remarkable for the Findings above. Patient Was Severely Decreased Serum Glucose Level. Patient's Medications Have Been Reviewed. Patient Is on a Sulfonylurea. an Amp of D50 Has Been Ordered. Patient Also Given Food and Juice. Patient Otherwise Is Appropriate and Had No Symptoms of Diaphoresis or Altered Mental Status. The Rest of the Patient's Laboratory Studies and Workup Is Pending at This Time. Patient Will Be Continued and Monitored. The Patient's Workup Was Remarkable for the Findings above. Patient's White Count Is Noted to Be 19.9. This Is Improved from Her Prior Lab Studies. In Discussion with the Patient, She Has Not Been Eating Her Normal Amount of Food Because of the Recent Surgery. Patient States That She Does Not Have an Appetite Anymore. Because of the Patient's Decreased by Mouth Intake and on a Sulfonylurea, Concern for Sulfonylurea Induced Hypoglycemia. Recommended Patient Stopped Taking Herself. Until Her Appetite Returns To Normal. Patient Was Monitored in the Emergency Department. Patient Continues to Be Appropriate. Patient Was Monitored until Daytime. Because of the Patient's Ingestion and Time of Day, Feel the Patient Is a Stable Outpatient Candidate. Patient Is Able to Check Her Blood Sugar. Patient Is Tolerating by Mouth. Patient Also Has a Reliable Person with Whom Can Check up on Her. This of the Patient's Spouse Who Is at the Patient's Bedside. At Had Multiple Encounters with the Patient's Spouse and He Appears to Be a Reliable Box Truck Owner Operator. Had a Discussion with the Patient in Regards to the Workup. Emergency Department Including Diagnosis, Home Care, Follow-Up, and Return Precautions. All Questions Have Been Answered. The Patient Expressed Understanding of These Instructions and Was Agreeable to Them. Prior to Patient's Departure from the Emergency Department She Is Noted to Have a Significantly Improved Blood Sugar Level. Patient Is Nontoxic and Is in No Acute Distress. Critical care performed (35 minutes). Time is exclusive of separately billable procedures. Time includes: direct patient care, patient reassessment, coordination of patient care, review of patient's medical records, medical consultation and documentation of patient care. CLINICAL IMPRESSION Near syncope .12 lead EKG performed. (acute). Hypoglycemia without coma- associated with type 2 diabetes and use of oral hypoglycemic (acute severe). INSTRUCTIONS (STOP taking your Glimeprimide until your appetite returns to normal. Please eat a small meal when you get home and check your blood sugar before going to bed.). Warnings: GENERAL WARNINGS: Return or contact your physician immediately if your condition worsens or changes unexpectedly, if not improving as expected, or if other problems arise. SPECIFICALLY, return if you develop chest pain, fluttering sensation in your chest, lightheadedness, fainting, numbness, weakness or extreme fatigue. Your Current Medications: STOP TAKING THE FOLLOWING MEDICATIONS: Glimepiride Oral : Tablet 4 mg, 1/2 tablet daily. CONTINUE TAKING THE FOLLOWING MEDICATIONS: 2 antibiotic ( states he got call from E[facility]N today with need to change abx)*. Amitiza Oral : Capsule 8 mcg, 1 capsule BID. Atorvastatin Calcium Oral : 40 mg daily. Carafate Oral : 1 gm 4x a day. Combivent 1 puff BID*. Digoxin Oral : 0.125 mg daily. Gabapentin Oral : 300 mg- 2 tabs 3x a day. had vicodin 5/325 at 1900*. Lidoderm External : Patch 5 %, 12 hours on, 12 hours off. Losartan Potassium Oral : 50 mg daily. MetFORMIN HCl Oral : Tablet 500 mg, 2 tablets 2x a day. Methylphenidate HCl Oral : Tablet 5 mg, 2 tablets BID. Metoclopramide HCl Oral : 10 mg 4x a day. MiraLax Oral : daily, prn. Omeprazole Oral : 20 mg daily. Ondansetron Oral : Film 4 mg, 1-2 every 4 hrs. OxyCODONE HCl Oral : 5 mg 4x a day. PARoxetine HCl Oral : Tablet 10 mg, 2 tablets daily. Requip Oral : 0.25 mg- 2 tabs at bedtime. Salmeterol Xinafoate Inhalation : 2 puffs 2x a day. Spironolactone Oral : 25 mg daily. Tamsulosin HCl Oral : 0.4 mg 2x a day. Torsemide Oral : 10 mg daily. TraMADol HCl ER Oral : 75mg TID prn pain. TraZODone HCl Oral : 50 mg--- 1 1/2 tabs (75mg) at bedtime. Tylenol Oral : 500mg TID, prn. Warfarin Sodium Oral : 5 mg daily. Follow-up: Return to the emergency department as needed. Follow up with your doctor in three days. Reason for referral: recheck today's concerns. Summary of care provided to patient via paper. Screening today revealed the patient's blood pressure to be in the normal range. The patient should follow up with a primary care provider for blood pressure management. Understanding of the discharge instructions verbalized by patient. Discharge instructions reviewed (spouse). (Electronically signed by Carmine Rodriguez Dr. 07/01/2017 6:25)
--- NOTE | 2017-02-21 04:45 | ED ORDER SUMMARY ---
..... Patient: TRAVON VIDAL OrderSheet [facility] VisitID: [id number] [place] [address] 77y, F Registration Date/Time: 02/21/2017 ORDER SHEET Weight: 73.0 kg (stated) Allergies: Amiodarone, Cordarone, Cordran, Doxycycline GENERAL ORDERS: Chest 1V Urgent (01:02/21/2017 Anil Oleary) (Ack 1:13 OSnell) (1:48 RCollier R.N.) (1:48 GUnger) Kennel Keeper (Continuous) (weakness) (:02/21/2017 Anil Oleary) (Ack 1:12 OSnell) (1:41 RCollier R.N.) CBC w Diff Urgent (:02/21/2017 Anil Oleary) (Ack 1:11 OSnell) (1:41 RCollier R.N.) CMP Urgent (01:02/21/2017 Anil Oleary) (Ack 1:11 OSnell) (1:41 RCollier R.N.) UA-Culture if indicated Urgent (01:02/21/2017 Anil Oleary) (Ack 1:11 OSnell) Lactate, Serum Urgent (:02/21/2017 Anil Oleary) (Ack 1:11 OSnell) (1:41 RCollier R.N.) TSH Urgent (:02/21/2017 Anil Oleary) (Ack 1:12 OSnell) (1:41 RCollier R.N.) Pulse oximeter (:02/21/2017 Anil Oleary) (Ack 1:12 OSnell) (1:41 RCollier R.N.) EKG - ER Stat (:02/21/2017 Karen ER Etl Tester verbal order read back to Anil Oleary) (1:10 CHaglouise ER Etl Tester) EKG - ER Repeat Stat (:02/21/2017 Karen ER Etl Tester verbal order read back to Anil Oleary) (1:10 CHaglouise ER Etl Tester) - (food and juice) (02:22 02/21/2017 Anil Oleary) (2:28 OSnell) POC Glucose (0315) (02:35 02/21/2017 Anil Oleary) (3:37 Roz R.NRadha) MEDICATION ORDERS: IV FLUIDS: IV NS : initial bolus 500 mL (1000 mL/hr), then none - for X1 (NOW) (01:10 02/21/2017 Anil Oleary) (Ack 1:26 Roz R.N.) (1:48 Roz R.NRadha) D-50 IV 1 amp (HIGH ALERT MEDICATION, NOW) (02:15 02/21/2017 Anil Oleary) (Ack 2:18 Brandi R.N.) (2:24 Brandi R.N.) ORDER SHEET NOTES: [Electronically signed by Antoinette Avila R.N. (05:08 02/21/2017)] [Electronically signed by Carmine Rodriguez Dr. (06:25 02/22/2017)] [Electronically locked/signed by Antoinette Avila R.N. (05:08 02/21/2017)]
--- NOTE | 2017-02-21 06:04 | DIAGNOSTIC IMAGING REPORT ---
PROCEDURE: XR CHEST 1 VIEW INDICATION: WEAKNESS TECHNIQUE: Portable AP view 01:43 a.m. COMPARISON: Chest x-ray 02/25/2016. FINDINGS: Lungs are clear. Median sternotomy and aortic valvuloplasty. Mild cardiomegaly. Mediastinum and pulmonary vessels are normal. Left axillary surgical clips. Thorax is normal. IMPRESSION: 1. Stable mild cardiomegaly 2. Aortic valvuloplasty
--- NOTE | 2017-02-22 06:26 | ED DISCHARGE INSTRUCTIONS ---
Patient: TRAVON VIDAL General Instructions [facility] VisitID: [id number] [place] [address] 77y, F Registration Date/Time: 02/21/2017 Near syncope .12 lead EKG performed. (acute). Hypoglycemia without coma- associated with type 2 diabetes and use of oral hypoglycemic (acute severe). INSTRUCTIONS (STOP taking your Glimeprimide until your appetite returns to normal. Please eat a small meal when you get home and check your blood sugar before going to bed.). Warnings: GENERAL WARNINGS: Return or contact your physician immediately if your condition worsens or changes unexpectedly, if not improving as expected, or if other problems arise. SPECIFICALLY, return if you develop chest pain, fluttering sensation in your chest, lightheadedness, fainting, numbness, weakness or extreme fatigue. Your Current Medications: STOP TAKING THE FOLLOWING MEDICATIONS: Glimepiride Oral : Tablet 4 mg, 1/2 tablet daily. CONTINUE TAKING THE FOLLOWING MEDICATIONS: 2 antibiotic ( states he got call from [facility] today with need to change abx)*. Amitiza Oral : Capsule 8 mcg, 1 capsule BID. Atorvastatin Calcium Oral : 40 mg daily. Carafate Oral : 1 gm 4x a day. Combivent 1 puff BID*. Digoxin Oral : 0.125 mg daily. Gabapentin Oral : 300 mg- 2 tabs 3x a day. had vicodin 5/325 at 1900*. Lidoderm External : Patch 5 %, 12 hours on, 12 hours off. Losartan Potassium Oral : 50 mg daily. MetFORMIN HCl Oral : Tablet 500 mg, 2 tablets 2x a day. Methylphenidate HCl Oral : Tablet 5 mg, 2 tablets BID. Metoclopramide HCl Oral : 10 mg 4x a day. MiraLax Oral : daily, prn. Omeprazole Oral : 20 mg daily. Ondansetron Oral : Film 4 mg, 1-2 every 4 hrs. OxyCODONE HCl Oral : 5 mg 4x a day. PARoxetine HCl Oral : Tablet 10 mg, 2 tablets daily. Requip Oral : 0.25 mg- 2 tabs at bedtime. Salmeterol Xinafoate Inhalation : 2 puffs 2x a day. Spironolactone Oral : 25 mg daily. Tamsulosin HCl Oral : 0.4 mg 2x a day. Torsemide Oral : 10 mg daily. TraMADol HCl ER Oral : 75mg TID prn pain. TraZODone HCl Oral : 50 mg--- 1 1/2 tabs (75mg) at bedtime. Tylenol Oral : 500mg TID, prn. Warfarin Sodium Oral : 5 mg daily. Follow-up: Return to the emergency department as needed. Follow up with your doctor in three days. Reason for referral: recheck today's concerns. Summary of care provided to patient via paper. Screening today revealed the patient's blood pressure to be in the normal range. The patient should follow up with a primary care provider for blood pressure management. Understanding of the discharge instructions verbalized by patient. Discharge instructions reviewed (spouse). ADDITIONAL INFORMATION Near-Fainting:Uncertain Cause Fainting (syncope) is a temporary loss of consciousness ("passing out"). It occurs when blood flow to the brain is reduced. Near-fainting ("near-syncope") is like fainting, but you do not fully "pass out." The common minor causes of near fainting include sudden fear, pain, emotional stress, overexertion, or quickly standing up after sitting or lying for a long time. The more serious causes for near fainting are due to either a very slow or very fast heart beat, dehydration, anemia, blood loss, problems related to the heart, or taking too much high blood pressure medicine. The exact cause of your episode is not certain. More tests may be required. Therefore, it is important that you follow up with your doctor as advised. Home Care: 1) Rest today. Resume your normal activities as soon as you are feeling back to normal. 2) If you become light-headed or dizzy, lie down right away or sit with your head between your knees. 3) Because we do not know the exact cause of your near fainting spell, another spell could occur without warning. Therefore, do not drive a car or use dangerous equipment. D o not take a bath alone (use a shower instead). Do not swim alone. You can resume these activities when your doctor says that you are no longer in danger of having a near fainting spell. 4) Stay well hydrated by drinking enough fluid each day. Follow Up with your doctor as instructed. Get Prompt Medical Attention if any of the following occur: -- Another fainting spell occurs, and it is not explained by the common causes listed above -- Chest, arm, neck, jaw, back or abdominal pain -- Shortness of breath -- Weakness, tingling or numbness in one side of the face, one arm or leg -- Slurred speech, confusion, trouble walking or seeing -- Seizure -- Blood in vomit, stools (black or red color) -- (In women) unexpected vaginal bleeding Hypoglycemia, Oral Diabetic Medicine You have been treated for low blood sugar (hypoglycemia) caused by your diabetes medicine. Oral diabetes medicines include glyburide (DiaBeta, Micronase), glipizide (Glucotrol), acarbose (Precose), chlorpropamide (Diabinese), metformin (Glucophage), tolazamide (Tolinase), tolbutamide (Orinase), pioglitazone (Actos), and others. This can occur when you continue to take your usual dose of diabetes medicine while you skip meals or don't eat the amount of food that your body is used to. It can also result from taking an excess of the medicine. Other factors that can lower blood sugar while taking diabetes medicine include intense exercise, strong emotions, alcohol use, tobacco, caffeine and certain medicines [aspirin, Haldol (haloperidol), Darvon (propoxyphene), Thorazine (chlorpromazine), Inderal (propranolol), Norpace (disopyramide)]. Some [id number] cough and cold products contain alcohol, which can affect your blood sugar. A class of medicine called beta-blockers is used for high blood pressure, rapid heart rates, and other conditions. Beta-blockers may prevent the early symptoms of low blood sugar, so you may not know that you are having a reaction until your blood sugar becomes dangerously low. If you take a beta-anna, talk to your doctor about switching to a different medicine. The beta-anna class includes Inderal (propranolol), Tenormin (atenolol), Lopressor (metoprolol), Corgard (nadolol), Trandateand Normodyne (labetalol), Coreg (carvedilol), and others. Home Care: During the next 24 hours, rest and eat frequent small meals to avoid recurrence of low blood sugar. It is important to learn the warning signals your body gives as your blood sugar changes. See signs listed under Get Prompt Medical Attention below. Always carry a source of fast-acting sugar with you in case you get symptoms of low blood sugar. At the first sign of low blood sugar, eat or drink 15 to 20 grams of fast-acting sugar to raise your blood sugar.This could be 3 or 4 glucose tablets, 4 ounces (1/2 cup) of fruit juice or regular soda, 2 tablespoons of raisins, or 1 tablespoon of honey. For other sources, check the sugar content on the nutrition label to figure out how much you need to eat or drink to get at least 15 grams of sugar. Check your blood sugar 15 minutes after treating yourself. If it is still low, take another 15 to 20 grams of fast-acting sugar. Test again in 15 minutes. If it returns to normal, eat a snack or meal to keep your blood sugar in a safe range. If it remains low, call your doctor or go to an emergency room. If you are unable to eat due to illness or vomiting, stop taking your diabetes pills and contact your doctor. Wear a medical alert bracelet or carry a card in your wallet explaining that you are diabetic. In the event that you have a severe hypoglycemic reaction and are unable to give this information, it will help medical personnel provide proper care. Follow Up: If you have the equipment to monitor your blood sugar, then do so at least twice a day (before breakfast and before dinner) for the next 5 days. Keep a record of your blood sugar to review with your doctor during the next week. This will help determine if you need an adjustment in your diabetes medicine. For more information about diabetes, go to the [place] [employer] website at www.diabetes.org or call 261-134-5646. Get Prompt Medical Attention if any of the following occur: HIGH BLOOD SUGAR: Frequent urination, dizziness, drowsiness, thirst, headache, nausea or vomiting, abdominal pain, vision changes, fast breathing, confusion or loss of consciousness LOW BLOOD SUGAR: Fatigue, headache, shakes, excess sweating, hunger, feeling anxious or restless, vision changes, drowsiness, weakness, confusion, or loss of consciousness You have been given the following additional information: Near Syncope, Unknown Hypoglycemia, Oral Diabetic Medicine (Electronically signed by Carmine Rodriguez Dr. 02/22/2017 6:25)
--- NOTE | 2017-02-22 06:26 | ED MAR SUMMARY ---
..... Medication Administration Record [facility] [address] [place] [address] Patient: TRAVON VIDAL Visit ID: [id number] 77y, F Weight: 73.0 kg Height/Length: 66 in BMI: 26 ALLERGIES: Amiodarone, Cordarone, Cordran, Doxycycline Start 01:48 02/21/2017 Antoinette Avila RDionisio Medication Administered: IV NS (SALINE), Dose: IV Fluids, Rate: 10 mL/hr, Bolus: 500 mL over 30 minute(s), Dispensed: 1000 mL bag, Site: #1 right forearm. Medication Ordered: IV NS : initial bolus 500 mL (1000 mL/hr), then none - for X1 (NOW). Given 02:24 02/21/2017 Elizabeth Melissa R.N. Medication Administered: D-50 [IVP], Dose: 25 gm IVP over 2 minute(s), Site: #1 right forearm. Medication Ordered: D-50 IV 1 amp (HIGH ALERT MEDICATION, NOW).
--- NOTE | 2017-02-22 06:26 | ED MED RECONCILIATION SUMMARY ---
Patient: TRAVON VIDAL Medication Reconciliation Report [facility] VisitID: [id number] [place] [address] 77y, F Registration Date/Time: 02/21/2017 Weight: 73.0 kg Height/Length: 66 in. BMI: 26.0 ALLERGIES: Amiodarone, Cordarone, Cordran, Doxycycline The patient's Home Medications are listed below: STOP TAKING THE FOLLOWING MEDICATIONS: Glimepiride Oral (4 mg) 1/2 tablet, daily CONTINUE TAKING THE FOLLOWING MEDICATIONS: 2 antibiotic ( states he got call from [facility] today with need to change abx) Amitiza Oral (8 mcg) 1 capsule, BID Atorvastatin Calcium Oral 40 mg, daily Carafate Oral 1 gm, 4x a day Combivent 1 puff BID Digoxin Oral 0.125 mg, daily Gabapentin Oral 300 mg- 2 tabs, 3x a day had vicodin 5/325 at 1900 Lidoderm External (5 %) 12 hours on, 12 hours off Losartan Potassium Oral 50 mg, daily MetFORMIN HCl Oral (500 mg) 2 tablets, 2x a day Methylphenidate HCl Oral (5 mg) 2 tablets, BID Metoclopramide HCl Oral 10 mg, 4x a day MiraLax Oral, daily Omeprazole Oral 20 mg, daily Ondansetron Oral (4 mg) 1-2 every 4 hrs OxyCODONE HCl Oral 5 mg, 4x a day PARoxetine HCl Oral (10 mg) 2 tablets, daily Requip Oral 0.25 mg- 2 tabs at bedtime Salmeterol Xinafoate Inhalation 2 puffs, 2x a day Spironolactone Oral 25 mg, daily Tamsulosin HCl Oral 0.4 mg, 2x a day Torsemide Oral 10 mg, daily TraMADol HCl ER Oral 75mg TID prn pain TraZODone HCl Oral 50 mg--- 1 1/2 tabs (75mg) , at bedtime Tylenol Oral 500mg TID Warfarin Sodium Oral 5 mg, daily The source(s) of the original Home Medication information: Not obtained. The following Medications were given to the patient in the Emergency Department: IV NS IV Fluids bolus 500 mL over 30 minute(s), then 10 mL/hr, administered: 02/21/2017 1:48:00 AM D-50 [IVP] IVP 25 gm, administered: 02/21/2017 2:24:00 AM The following Medications were prescribed to the patient: None.
--- NOTE | 2017-02-22 06:26 | ED MED RECONCILIATION SUMMARY ---
Patient: TRAVON VIDLA Medication Reconciliation Report [facility] VisitID: [id number] [place] [address] 77y, F Registration Date/Time: 02/21/2017 Weight: 73.0 kg Height/Length: 66 in. BMI: 26.0 ALLERGIES: Amiodarone, Cordarone, Cordran, Doxycycline The patient's Home Medications are listed below: STOP TAKING THE FOLLOWING MEDICATIONS: Glimepiride Oral (4 mg) 1/2 tablet, daily CONTINUE TAKING THE FOLLOWING MEDICATIONS: 2 antibiotic ( states he got call from [facility] today with need to change abx) Amitiza Oral (8 mcg) 1 capsule, BID Atorvastatin Calcium Oral 40 mg, daily Carafate Oral 1 gm, 4x a day Combivent 1 puff BID Digoxin Oral 0.125 mg, daily Gabapentin Oral 300 mg- 2 tabs, 3x a day had vicodin 5/325 at 1900 Lidoderm External (5 %) 12 hours on, 12 hours off Losartan Potassium Oral 50 mg, daily MetFORMIN HCl Oral (500 mg) 2 tablets, 2x a day Methylphenidate HCl Oral (5 mg) 2 tablets, BID Metoclopramide HCl Oral 10 mg, 4x a day MiraLax Oral, daily Omeprazole Oral 20 mg, daily Ondansetron Oral (4 mg) 1-2 every 4 hrs OxyCODONE HCl Oral 5 mg, 4x a day PARoxetine HCl Oral (10 mg) 2 tablets, daily Requip Oral 0.25 mg- 2 tabs at bedtime Salmeterol Xinafoate Inhalation 2 puffs, 2x a day Spironolactone Oral 25 mg, daily Tamsulosin HCl Oral 0.4 mg, 2x a day Torsemide Oral 10 mg, daily TraMADol HCl ER Oral 75mg TID prn pain TraZODone HCl Oral 50 mg--- 1 1/2 tabs (75mg) , at bedtime Tylenol Oral 500mg TID Warfarin Sodium Oral 5 mg, daily The source(s) of the original Home Medication information: Not obtained. The following Medications were given to the patient in the Emergency Department: IV NS IV Fluids bolus 500 mL over 30 minute(s), then 10 mL/hr, administered: 02/21/2017 1:48:00 AM D-50 [IVP] IVP 25 gm, administered: 02/21/2017 2:24:00 AM The following Medications were prescribed to the patient: None.
--- NOTE | 2017-02-22 06:26 | ED MAR SUMMARY ---
..... Medication Administration Record [facility] [address] [place] [address] Patient: TRAVNO VIDAL Visit ID: [id number] 77y, F Weight: 73.0 kg Height/Length: 66 in BMI: 26 ALLERGIES: Amiodarone, Cordarone, Cordran, Doxycycline Start 01:48 02/21/2017 Antoinette Avila RDionisio Medication Administered: IV NS (SALINE), Dose: IV Fluids, Rate: 10 mL/hr, Bolus: 500 mL over 30 minute(s), Dispensed: 1000 mL bag, Site: #1 right forearm. Medication Ordered: IV NS : initial bolus 500 mL (1000 mL/hr), then none - for X1 (NOW). Given 02:24 02/21/2017 Elizabeth Melissa R.N. Medication Administered: D-50 [IVP], Dose: 25 gm IVP over 2 minute(s), Site: #1 right forearm. Medication Ordered: D-50 IV 1 amp (HIGH ALERT MEDICATION, NOW).
== END 2017-02-21 05:00 | disposition home or self-care (01) ==
LOC: ED SRH 00:41
DX: E11.649 Type 2 diabetes mellitus with hypoglycemia without coma (principal); Z79.01 Long term (current) use of anticoagulants; Z79.84 Long term (current) use of oral hypoglycemic drugs; Z79.899 Other long term (current) drug therapy; Z88.1 Allergy status to other antibiotic agents; Z88.8 Allergy status to other drugs, medicaments and biological substances
CPT/HCPCS: 90098; 90100; 92031; 93140; 95059